=== PATIENT | female | born 1980 | race Caucasian/White ===

== ENCOUNTER → 2016-09-08 | Outpatient (CLI) | payer OTHER ==
--- NOTE | 2016-09-08 16:58 | CT ---
EXAMINATION TYPE: CT ChestAbdPelvis w con DATE OF EXAM: 09/08/2016 4:20 PM COMPARISON: 08/27/[address] 05/28/2016 HISTORY: 36-year-old female, follow-up right breast CA. Completed treatment in 2009. TECHNIQUE: Contiguous axial scanning of the chest, abdomen, and pelvis performed with IV Contrast, pa tient injected with 100 mL of Omnipaque 300. Delayed images through the kidneys were obtained. Whiteside l/sagittal reconstructions performed. CT DLP: 1386.8 mGycm Automated exposure control for dose reduction was used. FINDINGS: CHEST: Stable lateral right breast nodularity dating back to 08/27/2015. Surgical clips deep within the right breast redemonstrated with vascular calcifications on the left. Heart is normal size without pericardial effusion. Aorta is normal caliber with conventional arch vessel branching anatomy. No thoracic lymphadenopathy. Evaluation of the lungs shows no consolidation or pleural effusion. Subtle 4 mm groundglass nodule an terior right middle lobe axial image 34 is unchanged from 08/27/2015 suggesting a benign etiology. Interval resolution of patient's previous large right pleural effusion. ABDOMEN: 2 hypodense lesions visualized within the left hepatic lobe measuring 1.6 cm and in the mid liver lor suring 1.1 cm versus approximately 3.2 and 1.6 cm on the PET CT of 05/28/2016, both smaller in the int erval. No hypervascular enhancing lesions within the liver. Portal venous system is patent. No biliary ductal dilatation. Adrenal glands, kidneys, spleen, and pancreas appear within normal limits. Some surgical clips along the anterior abdominal wall likely from prior abdominoplasty. No mesenteric or retroperitoneal lymphadenopathy. No dilated small bowel, free fluid, or free air. Normal appendix. Oral contrast has progressed to the lower descending colon. No pericolonic inflammatory change. Pelvis: 2.1 cm exophytic nodule from the right ovary does not appear to be significantly changed from 05/28/20 16 but is smaller as compared to 08/27/2015, refer to coronal image 35. No abnormal fluid collection in the pelvis or pelvic lymphadenopathy. Bones: Previous diffuse osseous metastatic disease shows increasing and larger areas of sclerosis possibly d ue to interval healing change, however, some of these sclerotic lesions appear to be new, for example , measuring 1.3 cm within L3 vertebral body, a couple Small foci within the L2 vertebral body an measuring 1 cm within the T10 vertebral body. These partic ular areas do not seem to show any FDG uptake on the 05/28/2016 PET scan. IMPRESSION: 1. Stable nodularity lateral right breast. 2. There are 2 hypodense hepatic lesions measuring 1.6 and 1.1 cm versus 3.2 and 1.6 cm on 05/28/2016 PET/CT. Findings suggest partial interval treatment response. Additional small hepatic lesions seen o n PET scan are not clearly appreciated. 3. Diffuse osseous metastatic disease again demonstrated. While the increasing sclerosis of these les ions could reflect healing change, the interval enlargement and appearance of new lesions at sites wh ere no previous metabolic uptake was seen makes progression of osseous metastatic disease difficult t o exclude.
== END | disposition home or self-care (01) ==
LOC: RADCTMAIN 14:28
PROVIDERS: ATTEND Internal Medicine Hematology & Oncology
DX: Z03.89 Encounter for observation for other suspected diseases and conditions ruled out (principal); N63 Unspecified lump in breast; C50.411 Malignant neoplasm of upper-outer quadrant of right female breast; C79.51 Secondary malignant neoplasm of bone
CPT/HCPCS: 71260; 74177; Q9967

== ENCOUNTER → 2016-11-28 | Outpatient (CLI) | payer OTHER, MEDICARE ==
[2016-11-28 13:55] LABS: Blood Urea Nitrogen 11 mg/dL (7-17); Non-African American GFR(MDRD) >60 (>60 ml/min/1.73 sqM)
--- NOTE | 2016-11-28 14:37 | CT ---
EXAMINATION TYPE: CT ChestAbdPelvis w con DATE OF EXAM: 11/28/2016 COMPARISON: Previous study dated 09/08/2016. HISTORY: Follow up breast cancer. No complaints at time of scan CT DLP: 2063 mGycm Automated exposure control for dose reduction was used. TECHNIQUE: Helical acquisition through the abdomen and pelvis was obtained without oral contrast but following the intravenous administration of 100 mL of Omnipaque 300. The data was formatted in the a xial, coronal and sagittal projections. FINDINGS: The lungs are clear. There are postsurgical changes present in both breasts. There is no significant axillary, internal mammary, mediastinal or hilar adenopathy. There is no pleu ral or pericardial fluid. The heart is not enlarged. Subtle lesion in the medial segment of the left lobe of the liver previously measured 16 mm. Today it measures 9.8 mm. Second liver lesion in the mid liver is decreasing is stable measuring 10.9 mm. Pre viously it was measured at 10.5 mm. No new liver lesions are seen. The gallbladder and spleen are nor mal. There is a stable 10.3 mm lymph node along the lesser curvature the stomach. This was present previou sly. The pancreas is unremarkable. Both adrenal glands are unremarkable. Both kidneys demonstrate function and appear morphologically normal. There is no significant retroperitoneal, inguinal or iliac adenopathy. The uterus is unremarkable. There is a 2.4 cm cyst in the right ovary. This was previously measured a t 2.1 cm There is follicular change in the left ovary largest cystic lesion measures 1.4 cm. The bladder is unremarkable. There is mild mucosal thickening involving the distal sigmoid and rectum. This may partially due to l ack of distention. There is no significant diverticular disease and there is no radiographic evidence of diverticulitis. The appendix is normal. Small bowel loops appear normal. No free fluid and no free air is seen. The large number of metallic densities projecting within the rectus complex bilaterally. These are un changed from previous. There are innumerable blastic metastases throughout the skeletal system. These appear stable. One les ion measured in the L3 vertebral body previously measured 14.7 mm previously and today measures 14.8 mm. A second lesion measured previously in the T10 vertebral body at 10 mm measures 11 mm today. No d efinite new lesions are seen. IMPRESSION: 1. STABLE, DIFFUSE BLASTIC METASTASES. 2. IMPROVED SIZE OF THE PATIENT'S KNOWN HEPATIC LESIONS. 3. MILD MUCOSAL THICKENING INVOLVING THE DISTAL SIGMOID AND RECTUM. PLEASE CORRELATE CLINICALLY TO EX CLUDE COLITIS. 4. POSTSURGICAL CHANGES IN THE BREAST ANTERIOR ABDOMEN. 5. STABLE CYSTIC CHANGE IN THE RIGHT OVARY.
== END | disposition home or self-care (01) ==
LOC: RADCTMAIN 12:15
PROVIDERS: ATTEND Internal Medicine Hematology & Oncology
DX: C50.411 Malignant neoplasm of upper-outer quadrant of right female breast (principal); L98.9 Disorder of the skin and subcutaneous tissue, unspecified; N83.201 Unspecified ovarian cyst, right side; Z98.890 Other specified postprocedural states
CPT/HCPCS: 82565; 84520; 71260; 74177; 36415; Q9967

== ENCOUNTER 2016-11-30 18:15 | Emergency (ER) | payer OTHER, MEDICARE ==
[2016-11-30] MEDS ORDERED: HYDROcodone/APAP 7.5-325MG 1 EACH TAB PO ONE (19:50)
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
--- NOTE | 2016-11-30 21:09 | XR ---
EXAMINATION TYPE: XR sacrum coccyx DATE OF EXAM: 11/30/2016 COMPARISON: NONE HISTORY: Pain TECHNIQUE: 3 views FINDINGS: Segments have normal alignment. Sacroiliac joints appear intact. I see no fracture. There a re multiple sclerotic foci involving the left ischium left ilium right side of the sacrum, inferior l eft side of the sacrum. These appear new compared to old CT scan of 08/27/2015 and are suggestive of os teoblastic metastatic disease. IMPRESSION: Osteoblastic changes. No fracture seen.
--- NOTE | 2016-11-30 21:11 | XR ---
EXAMINATION TYPE: XR chest 2V DATE OF EXAM: 11/30/2016 COMPARISON: 06/01/2016 HISTORY: Pain TECHNIQUE: Frontal and lateral views of the chest are obtained. FINDINGS: Heart and mediastinum are normal. Lungs are clear. Diaphragm is normal. Bony thorax is int act. IMPRESSION: Normal chest. There is clearing of pleural fluid or reaction at the right lung base comp ared to old exam.
[2016-11-30 21:50] VITALS: BP 140/66; PULSE 104; RESP 18; TEMP 98.6
== END 2016-11-30 21:51 | disposition home or self-care (01) ==
LOC: EC 18:15
DX: S20.212A Contusion of left front wall of thorax, initial encounter (principal); S30.0XXA Contusion of lower back and pelvis, initial encounter; S30.1XXA Contusion of abdominal wall, initial encounter; Z87.891 Personal history of nicotine dependence; Z79.899 Other long term (current) drug therapy; Z85.3 Personal history of malignant neoplasm of breast; Z85.89 Personal history of malignant neoplasm of other organs and systems; V46.5XXA Car driver injured in collision with other nonmotor vehicle in traffic accident, initial encounter; Y92.410 Unspecified street and highway as the place of occurrence of the external cause
CPT/HCPCS: 71020; 72220; 76705; 99284

== ENCOUNTER 2017-03-14 08:47 | Emergency (ER) | payer OTHER, MEDICARE ==
[2017-03-14] MEDS ORDERED: KETOROLAC 30 MG/ML 1 ML VIAL IVP STA (09:05)
[2017-03-14] MEDS ORDERED: SODIUM CHLORIDE 0.9% 1,000 ML IV STA (09:05)
--- NOTE | 2017-03-14 09:17 | ED ---
General Adult HPI - General Chief complaint: Abdominal Pain Stated complaint: severe pain on right side ribs Time Seen by Provider: 03/14/17 08:54 Source: patient, RN notes reviewed Mode of arrival: ambulatory Limitations: no limitations - History of Present Illness Initial comments: 36-year-old female presents to the emergency Department chief complaint of right side pain. Patient states she has this pain just to the right thigh. Patient has a nausea vomiting any tenderness to touch. Patient states if she sits still she has no pain but if she breathes or moves at all she has increased pain. Patient does admit to history of breast cancer that has spread this is currently under treatment for this. Patient denies any shortness of breath but states when she takes a deep breath it does cause her some discomfort. Patient just grabs the right side. There is no tenderness to touch. Patient denies any history of this in the past or any other symptoms. Patient denies any recent fever, chills, shortness of breath, back pain, abdominal pain, nausea vomiting, numbness or tingling, dysuria or hematuria, constipation or diarrhea, headaches or visual changes, or any other current symptoms. - Related Data Home Medications Medication Instructions Recorded Confirmed Palbociclib [Ibrance] 125 mg PO DAILY 11/30/16 03/14/17 Venlafaxine HCl [Effexor XR] 75 mg PO DAILY 11/30/16 03/14/17 ALPRAZolam [ALPRAZolam] 1 mg PO TID PRN 03/14/17 03/14/17 Previous Rx's Medication Instructions Recorded Hydrocodone/Acetaminophen [[place] 1 each PO Q6HR PRN #20 tab 03/14/17 5-325] Orphenadrine [Norflex] 100 mg PO Q12H #10 tablet.er 03/14/17 Allergies Allergy/AdvReac Type Severity Reaction Status Date / Time No Known Allergies Allergy Verified 03/14/17 09:50 Review of Systems ROS Statement: Those systems with pertinent positive or pertinent negative responses have been documented in the HPI. ROS Other: All systems not noted in ROS Statement are negative. Past Medical History Past Medical History: Cancer Additional Past Medical History / Comment(s): plueral effusion, R breast cancer , liver and lower spine cancer History of Any Multi-Drug Resistant Organisms: None Reported Additional Past Surgical History / Comment(s): double mastecomy, R ankle surg, carpel tunnel adrián, hx of mediport Past Anesthesia/Blood Transfusion Reactions: No Reported Reaction Past Psychological History: Anxiety Smoking Status: Former smoker Past Alcohol Use History: Occasional Past Drug Use History: None Reported General Exam - General Exam Comments Initial Comments: General: The patient is awake and alert, in no distress, and does not appear acutely ill. Eye: Pupils are equal, round and reactive to light, extra-ocular movements are intact; there is normal conjunctiva bilaterally. No signs of icterus. Ears, nose, mouth and throat: There are moist mucous membranes and no oral lesions. Neck: The neck is supple, there is no tenderness. Cardiovascular: There is a regular rate and rhythm. No murmur, rub or gallop is appreciated. Respiratory: Lungs are clear to auscultation, respirations are non-labored, breath sounds are equal. No wheezes, stridor, rales, or rhonchi. Gastrointestinal: Soft, non-distended, non-tender abdomen without masses or organomegaly noted. There is no rebound or guarding present. No CVA tenderness. Bowel sounds are unremarkable. Back: There is no tenderness to palpation in the midline. There is no obvious deformity. No rashes noted. Musculoskeletal: Normal ROM, no tenderness, There is no pedal edema. There is no calf tenderness or swelling. Sensation intact. Pulses equal bilaterally 2+. Neurological: CN II-XII intact, There are no obvious motor or sensory deficits. Coordination appears grossly intact. Speech is normal. Skin: Skin is warm and dry and no rashes or lesions are noted. Psychiatric: Cooperative, appropriate mood & affect, normal judgment. Limitations: no limitations Course Vital Signs 03/14/17 03/14/17 03/14/17 08:49 10:03 11:25 Temperature 98.3 F 98.5 F Pulse Rate 81 72 74 Respiratory 17 18 18 Rate Blood Pressure 137/81 124/74 130/81 O2 Sat by Pulse 100 98 98 Oximetry Medical Decision Making - Medical Decision Making 28-year-old female presents for right side pain. This time patient's symptoms do appear to be musculoskeletal. They are worse to movement better to rest. Toradol to help the patient with her pain. We did review her CAT scan to do show bone metastases we discussed could be related to that he could be a muscle strain. We did discuss close follow-up with her oncologist. We did discuss return parameters all the patient's questions. He stated he understood and they are plan. All questions have been answered. He'll be discharged. - Lab Data Result diagrams: 03/14/17 09:23 03/14/17 09:23 Lab Results 03/14/17 03/14/17 03/14/17 Range/Units 09:23 09:23 09:23 WBC 2.8 L (3.8-10.6) k/uL RBC 3.32 L (3.80-5.40) m/uL Hgb 12.3 (11.4-16.0) gm/dL Hct 35.5 (34.0-46.0) % MCV 107.2 H (80.0-100.0) fL MCH 37.1 H (25.0-35.0) pg MCHC 34.6 (31.0-37.0) g/dL RDW 15.2 (11.5-15.5) % Plt Count 230 (150-450) k/uL Neutrophils % 70 % Lymphocytes % 23 % Monocytes % 3 % Eosinophils % 1 % Basophils % 1 % Neutrophils # 2.0 (1.3-7.7) k/uL Lymphocytes # 0.6 L (1.0-4.8) k/uL Monocytes # 0.1 (0-1.0) k/uL Eosinophils # 0.0 (0-0.7) k/uL Basophils # 0.0 (0-0.2) k/uL Macrocytosis Moderate PT 10.2 (9.0-12.0) sec INR 1.0 (<1.2) APTT 22.0 (22.0-30.0) sec D-Dimer 0.92 H (<0.60) mg/L FEU Sodium 141 (137-145) mmol/L Potassium 3.9 (3.5-5.1) mmol/L Chloride 107 (98-107) mmol/L Carbon Dioxide 26 (22-30) mmol/L Anion Gap 8 mmol/L BUN 11 (7-17) mg/dL Creatinine 0.73 (0.52-1.04) mg/dL Est GFR (MDRD) Af Amer >60 (>60 ml/min/1.73 sqM) Est GFR (MDRD) Non-Af >60 (>60 ml/min/1.73 sqM) Glucose 103 H (74-99) mg/dL Calcium 8.8 (8.4-10.2) mg/dL Total Bilirubin 0.7 (0.2-1.3) mg/dL AST 25 (14-36) U/L ALT 46 (9-52) U/L Alkaline Phosphatase 53 (38-126) U/L Total Protein 7.3 (6.3-8.2) g/dL Albumin 4.2 (3.5-5.0) g/dL Urine Color Urine Appearance (Clear) Urine pH (5.0-8.0) Ur Specific Beverly (1.001-1.035) Urine Protein (Negative) Urine Glucose (UA) (Negative) Urine Ketones (Negative) Urine Blood (Negative) Urine Nitrite (Negative) Urine Bilirubin (Negative) Urine Urobilinogen (<2.0) mg/dL Ur Leukocyte Esterase (Negative) 03/14/17 Range/Units 09:23 WBC (3.8-10.6) k/uL RBC (3.80-5.40) m/uL Hgb (11.4-16.0) gm/dL Hct (34.0-46.0) % MCV (80.0-100.0) fL MCH (25.0-35.0) pg MCHC (31.0-37.0) g/dL RDW (11.5-15.5) % Plt Count (150-450) k/uL Neutrophils % % Lymphocytes % % Monocytes % % Eosinophils % % Basophils % % Neutrophils # (1.3-7.7) k/uL Lymphocytes # (1.0-4.8) k/uL Monocytes # (0-1.0) k/uL Eosinophils # (0-0.7) k/uL Basophils # (0-0.2) k/uL Macrocytosis PT (9.0-12.0) sec INR (<1.2) APTT (22.0-30.0) sec D-Dimer (<0.60) mg/L FEU Sodium (137-145) mmol/L Potassium (3.5-5.1) mmol/L Chloride (98-107) mmol/L Carbon Dioxide (22-30) mmol/L Anion Gap mmol/L BUN (7-17) mg/dL Creatinine (0.52-1.04) mg/dL Est GFR (MDRD) Af Amer (>60 ml/min/1.73 sqM) Est GFR (MDRD) Non-Af (>60 ml/min/1.73 sqM) Glucose (74-99) mg/dL Calcium (8.4-10.2) mg/dL Total Bilirubin (0.2-1.3) mg/dL AST (14-36) U/L ALT (9-52) U/L Alkaline Phosphatase (38-126) U/L Total Protein (6.3-8.2) g/dL Albumin (3.5-5.0) g/dL Urine Color Yellow Urine Appearance Clear (Clear) Urine pH 6.0 (5.0-8.0) Ur Specific Beverly 1.017 (1.001-1.035) Urine Protein Negative (Negative) Urine Glucose (UA) Negative (Negative) Urine Ketones Negative (Negative) Urine Blood Negative (Negative) Urine Nitrite Negative (Negative) Urine Bilirubin Negative (Negative) Urine Urobilinogen <2.0 (<2.0) mg/dL Ur Leukocyte Esterase Negative (Negative) - Radiology Data Radiology results: report reviewed, image reviewed Disposition Clinical Impression: Thoracic myofascial strain Disposition: HOME SELF-CARE Condition: Stable Instructions: Muscle Spasm (ED), Muscle Strain (ED) Additional Instructions: Please use medication as discussed. Please follow up with family doctor if symptoms have not improved over the next two days. Please return to the emergency room if your symptoms increase or worsen or for any other concerns. Prescriptions: Hydrocodone/Acetaminophen [[place] 5-325] 1 each PO Q6HR PRN #20 tab PRN Reason: Pain Orphenadrine [Norflex] 100 mg PO Q12H #10 tablet.er Referrals: Jeronimo Mccormick DO [Primary Care Provider] - 1-2 days Time of Disposition: 12:04
--- NOTE | 2017-03-14 09:40 | XR ---
EXAMINATION TYPE: XR chest 2V DATE OF EXAM: 03/14/2017 COMPARISON: 11/30/2016 TECHNIQUE: PA and lateral views submitted. HISTORY: Right upper chest pain FINDINGS: The lungs are clear and there is no pneumothorax, pleural effusion, or focal pneumonia. Surgical cl ips overlying the right chest. IMPRESSION: 1. No acute process.
[2017-03-14 09:43] LABS: Basophils % (A) 1 %; CH 38.2; CHCM 35.8; Eosinophils % (A) 1 %; HCT 35.5 % (34.0-46.0); HDW 3.26; HGB 12.3 gm/dL (11.4-16.0); Luc # (Auto) 0.07; Luc % (Auto) 2; Lymphocytes # (A) 0.6 k/uL (1.0-4.8); Lymphocytes % (A) 23 %; MCH 37.1 pg (25.0-35.0); MCHC 34.6 g/dL (31.0-37.0); MCV 107.2 fL (80.0-100.0); Macrocytosis Moderate; Mean Platelet Volume 7.5; Monocytes # (A) 0.1 k/uL (0-1.0); Monocytes % (A) 3 %; Neutrophils % (A) 70 %; RBC 3.32 m/uL (3.80-5.40); RDW 15.2 % (11.5-15.5); WBC 2.8 k/uL (3.8-10.6); WBC (Perox) 3.05
--- NOTE | 2017-03-14 09:43 | XR ---
EXAM TYPE: LUMBAR SPINE X RAY SERIES COMPARISON: NONE HISTORY: Pain TECHNIQUE: 4 views are submitted. FINDINGS: Alignment is anatomic. Sclerosis of the pedicle of T12 and L1 on the right. Sclerosis involving the r ight transverse process of L1. Sclerotic lesions involving the sacrum and iliac bones noted. Vague ar eas of increased density seen throughout the lumbar vertebral column. No compression deformities. The transverse processes are intact. There is no spondylolysis or spondylolisthesis. IMPRESSION: 1. Findings suggest bony metastases.
[2017-03-14 09:46] LABS: Appearance,Urine Clear (Clear); Bilirubin,Urine Negative (Negative); Glucose,Urine (UA) Negative (Negative); Ketones,Urine Negative (Negative); Leukocyte Esterase,Urine Negative (Negative); Nitrite,Urine Negative (Negative); Protein,Urine Negative (Negative); Specific Gravity,Urine 1.017 (1.001-1.035); UA Billing (MACRO vs. MICRO) CHEM; Urobilinogen,Urine <2.0 mg/dL (<2.0)
[2017-03-14 09:52] LABS: ALT 46 U/L (9-52); AST 25 U/L (14-36); Alkaline Phosphatase 53 U/L (38-126); Anion Gap 8 mmol/L; Blood Urea Nitrogen 11 mg/dL (7-17); Calcium 8.8 mg/dL (8.4-10.2); Carbon Dioxide 26 mmol/L (22-30); Chloride 107 mmol/L (98-107); Glucose 103 mg/dL (74-99); Non-African American GFR(MDRD) >60 (>60 ml/min/1.73 sqM); Potassium 3.9 mmol/L (3.5-5.1); Sodium 141 mmol/L (137-145); Total Bilirubin 0.7 mg/dL (0.2-1.3); Total Protein 7.3 g/dL (6.3-8.2)
[2017-03-14 09:55] LABS: Prothrombin Time 10.2 sec (9.0-12.0)
[2017-03-14] MEDS ORDERED: RX INFO: IV CONTRAST WAS GIVEN 1 EACH MISC MISCELLANE PRN (09:58)
[2017-03-14 10:04] VITALS: RESP 18
[2017-03-14 11:25] VITALS: BP 130/81; PULSE 74; TEMP 98.5
--- NOTE | 2017-03-14 11:51 | CT ---
CT CHEST FOR PULMONARY EMBOLISM. EXAMINATION TYPE: CT angio chest DATE OF EXAM: 03/14/2017 INDICATION: Rt side chest pain CT DLP: 435.1 mGycm, Automated exposure control for dose reduction was used. CONTRAST: Patient injected with 85 mL of Omnipaque 350. COMPARISON: 11/28/2016 TECHNIQUE: CT of the chest is performed on a spiral scan at 2 mm thick sections. Study is performed with intravenous contrast timed for evaluation for pulmonary embolism. This will limit additional po rtions of the evaluation. 3-D MIP images reconstructed by the technologist are reviewed on the compu ter in the coronal and sagittal planes. FINDINGS: No persistent filling defects are evident to suggest an acute pulmonary embolism. No mediastinal or hilar adenopathy enlarged by CT criteria is evident. The ascending aorta diameter at the level of the main pulmonary artery is 2.8 cm. The main pulmonary artery diameter at the bifur cation is 1.9 cm. Some right apical scarring is likely present. No other suspicious infiltrates or masses are evident. Limited CT sections through the upper abdomen are unremarkable. Multiple sclerotic metastases are throughout the osseous structures. IMPRESSIONS: 1. No acute pulmonary embolism. 2. Minimal right apical scarring. 3. Diffuse osseous metastasis.
[2017-03-14] MEDS ORDERED: HYDROcodone/APAP 5-325MG 1 EACH TAB PO STA (12:14)
== END 2017-03-14 12:15 | disposition home or self-care (01) ==
LOC: EC 08:47
DX: S29.012A Strain of muscle and tendon of back wall of thorax, initial encounter (principal); F41.9 Anxiety disorder, unspecified; Z85.3 Personal history of malignant neoplasm of breast; Z85.05 Personal history of malignant neoplasm of liver; Z85.89 Personal history of malignant neoplasm of other organs and systems; Z87.891 Personal history of nicotine dependence; Z79.899 Other long term (current) drug therapy
CPT/HCPCS: 99284; 96374; 96361 ×2; 36415; 85379; 80053; 85025; 85610; 85730; 81003; 71020; 72100; 71275; Q9967; J1885

== ENCOUNTER → 2017-03-30 | Outpatient (CLI) | payer OTHER, MEDICARE ==
[2017-03-30 13:04] LABS: Blood Urea Nitrogen 14 mg/dL (7-17); Non-African American GFR(MDRD) >60 (>60 ml/min/1.73 sqM)
--- NOTE | 2017-03-30 14:33 | CT ---
EXAMINATION TYPE: CT abdomen pelvis w con DATE OF EXAM: 03/30/2017 HISTORY: Bilateral Breast Ca., Bilateral Mastectomy Lung Ca and Liver Ca, observation for suspected M ets CT DLP: 1517.30mGycm Automated Exposure Control for Dose Reduction was Utilized. CONTRAST: CT scan of the abdomen and pelvis is performed with IV Contrast, patient injected with 100ml mL of Om nipaque 300. COMPARISON: 11-28-16 FINDINGS: LUNG BASES: Bilateral mastectomy with TRAM flap reconstruction is appreciated. No discrete pulmonary nodules are appreciated or pulmonary masses. No internal mammary adenopathy is seen within the inferi or visual is portion of the internal mammary lymph node chains. LIVER/GB: The previously seen 1.0 cm left hepatic lobe lesion has decreased in size now measuring 0.8 cm. This is seen on series 3 image 17. The previously seen lesion near the middle hepatic vein as pr esent on series 3 image 20 and difficult to accurately measure as it has become decreasingly conspicu ous now measuring approximately 0.8 cm and previously measuring 1.1 cm. No new hepatic lesions are ap preciated. PANCREAS: No significant abnormality is seen. SPLEEN: No significant abnormality is seen. ADRENALS: No significant abnormality is seen. KIDNEYS: No significant abnormality is seen. BOWEL: No significant abnormality is seen. UTERUS/ADNEXA: Bilateral ovarian follicular changes are stable. LYMPH NODES: There is decrease in size of the previously seen 10.3 mm lymph node in the region of the gastrohepatic ligament now measuring 7.8 mm on series 3 image 23. OSSEOUS STRUCTURES: Innumerable blastic osseous metastasis throughout the axial and visualized append icular skeleton are similar in appearance. The index lesion previously measured on prior exams at L3 currently measures 14.8 mm and previously measured 14.7 mm. No compression deformities are seen. OTHER: Postsurgical changes are seen of the rectus abdominous musculature. IMPRESSION: 1. Decrease in size of the now subcentimeter 2 hepatic lesions with the smaller difficult to accurate ly measure as it is much less conspicuous than on the prior exam. 2. Stability of the diffuse osseous blastic metastatic foci. 3. Unchanged bilateral follicular changes of the ovaries. 4. No evidence of adenopathy within the abdomen or pelvis. No new visceral lesions.
== END | disposition home or self-care (01) ==
LOC: RADCTMAIN 12:04
PROVIDERS: ATTEND Internal Medicine Hematology & Oncology
DX: K76.89 Other specified diseases of liver (principal); R93.8 Abnormal findings on diagnostic imaging of other specified body structures; C50.411 Malignant neoplasm of upper-outer quadrant of right female breast
CPT/HCPCS: 82565; 84520; 74177; Q9967

== ENCOUNTER → 2017-09-14 | Outpatient (CLI) | payer MEDICARE ==
[2017-09-14 11:20] LABS: Blood Urea Nitrogen 17 mg/dL (7-17)
--- NOTE | 2017-09-14 15:06 | CT ---
EXAMINATION TYPE: CT ChestAbdPelvis w con DATE OF EXAM: 09/14/2017 COMPARISON: 03/14/2017 and 03/30/2017 HISTORY: Follow up on right breast cancer, obs. for metastasis CT DLP: 2607 mGycm. Automated Exposure Control for Dose Reduction was Utilized. CONTRAST: CT scan of the thorax, abdomen and pelvis is performed with IV Contrast, patient injected with 100 mL of Isovue 300. FINDINGS: LUNGS: The lungs are grossly clear, there is no concerning parenchymal mass or nodule identified. T here is no pleural effusion or pneumothorax seen. The tracheobronchial tree is patent. MEDIASTINUM: There are no greater than 1 cm hilar or mediastinal lymph nodes. No pericardial effusi on is seen. Scant residual thymic tissue seen within the superior anterior mediastinum. OTHER: Surgical clips are seen in both breasts with findings suggestive of TRAM reconstruction and natarajan rgical clips are also seen in the lower anterior abdominal wall.. No axillary adenopathy or internal mammary adenopathy. LIVER/GB: There is near complete resolution of the previously seen left hepatic lobe metastasis now p oorly defined and measuring approximately 4 mm on series 5 image 45 and previously measuring 8 mm on the exam of 03/30/2017. The additionally seen 8 mm lesion is no longer visualized. Focal hypoattenuati on is seen along the fissure for the falciform ligament, unchanged from the prior most commonly relat ed to focal fatty infiltration. No new hepatic lesions are seen. No intrahepatic biliary ductal dilat ation. Gallbladder is unremarkable. PANCREAS: No significant abnormality is seen. No ductal dilatation. SPLEEN: No splenomegaly. ADRENALS: No nodularity or thickening. KIDNEYS: Kidneys enhance symmetrically. No hydronephrosis. BOWEL: Appendix contains contrast and is within normal limits of size. No evidence of bowel obstructi on or dilatation. GENITAL ORGANS: No gross abnormality seen. LYMPH NODES: Few nonenlarged lymph nodes are again seen in the region of the gastrohepatic ligament, previously measuring up to 7.8 mm and now measuring up to 6 mm. No greater than 1cm abdominal or pelv ic lymph nodes are appreciated. OSSEOUS STRUCTURES: There is redemonstration of diffuse osseous blastic metastasis, similar to the pr ior exam of 03/30/2017 with involvement of the thoracic spine, lumbar spine, sternum, and left ribs. F or comparison in size the previously measured 14.8 mm lesion at L3 again measures 14.8 mm. IMPRESSION: 1. Near complete resolution of the previously seen 8 mm hepatic lesions with one nonvisualized and th e other very subtly visualized measuring 4 mm. 2. Decrease in size of the overall nonenlarged gastrohepatic ligament lymph nodes. 3. Stability of the diffuse osseous blastic metastasis. 4. No new visceral lesions and no new adenopathy.
== END | disposition home or self-care (01) ==
LOC: RADCTMAIN 10:50
PROVIDERS: ATTEND Internal Medicine Hematology & Oncology
DX: C79.51 Secondary malignant neoplasm of bone (principal); C50.411 Malignant neoplasm of upper-outer quadrant of right female breast; C78.7 Secondary malignant neoplasm of liver and intrahepatic bile duct
CPT/HCPCS: 82565; 84520; 71260; 74177; 36415; Q9967

== ENCOUNTER → 2018-03-05 | Outpatient (CLI) | payer MEDICARE, OTHER ==
[2018-03-05 14:18] VITALS: BP 129/74; PULSE 83; RESP 14; TEMP 98.1; BMI 36.8
--- NOTE | 2018-03-05 15:22 | P.HPBAR ---
Bariatric H&P - History & Physicial H&P Date: 03/05/18 History & Physicial: Visit/CC: sleeve consult Patient initial contact: Initial weight: 102.104 kg Initial weight in pounds: 225.10 Height: 5 ft 5.5 in Initial BMI: 36.8 Last weight: Current weight: 102.104 kg Current weight in pounds: 225.10 Current BMI: 36.8 [place] body weight (based on NIH guidelines): 57.833 kg Excess body weight loss: 0.0% The patient is a 37 year-old F who presents for Bariatric Assessment. Patient presents for new patient consultation Re: Sleeve gastrectomy. Patient has had lifetime process morbid obesity. Her BMI is 37. The patient is requesting to sleeve gastrectomy. She's been an information summer. Potter the risks and benefits of procedure including possible injury the stomach, liver spleen. She also a risk of gastric staple line disruption, bleeding or scarring. Past Medical History Past Medical History: Cancer Additional Past Medical History / Comment(s): plueral effusion, R breast cancer dx at age 28, liver and lower spine cancer History of Any Multi-Drug Resistant Organisms: None Reported Additional Past Surgical History / Comment(s): double mastecomy, R ankle surg, carpel tunnel adrián, hx of mediport Past Anesthesia/Blood Transfusion Reactions: No Reported Reaction Past Psychological History: Anxiety Smoking Status: Former smoker Past Alcohol Use History: Occasional Past Drug Use History: None Reported Additional Drug Use History / Comment(s): Pt states she "smoked for a couple of years in late teenage years" Surgical - Exam Vital Signs Temp Pulse Resp BP 98.1 F 83 14 129/74 03/05/18 13:59 03/05/18 13:59 03/05/18 13:59 03/05/18 13:59 - General well developed, no distress - Eyes PERRL - ENT normal pinna - Neck no masses - Respiratory normal expansion - Abdomen Abdomen: soft, non tender Bariatric Assessment & Plan Plan: Morbid obesity BMI 37. The patient will undergo EGD. She'll follow-up in the clinic after her EGD is performed. Bariatric Checklist Checklist: Plan: Checklist: EGD: 1. Hiatal hernia: 2. H. Pylori: HgbA1c: Vitamin D: Smoking: Former smoker Primary care physician referral: Jeronimo Mccormick ([place]), Dr. Pablo Hickey ( oncologist) Psychiatry clearance: Cardiology clearance: Sleep study: Diet journal: VTE risk score: VTE risk level: Rehab needs at discharge:
== END | disposition home or self-care (01) ==
LOC: BARWHC3 13:21
PROVIDERS: ATTEND Surgery
DX: E66.01 Morbid (severe) obesity due to excess calories (principal); F41.9 Anxiety disorder, unspecified; Z87.891 Personal history of nicotine dependence; Z85.3 Personal history of malignant neoplasm of breast; Z85.05 Personal history of malignant neoplasm of liver; Z85.89 Personal history of malignant neoplasm of other organs and systems; Z90.13 Acquired absence of bilateral breasts and nipples; Z68.37 Body mass index [BMI] 37.0-37.9, adult
CPT/HCPCS: 99211

== ENCOUNTER 2018-03-19 08:24 | Day surgery (SDC) | payer MEDICARE, OTHER ==
[2018-03-15 11:27] VITALS: BMI 37.4
[~2018-03-19 08:24] MED LIST: LACTATED RINGERS 1,000 ML IV SCH; LIDOCAINE 1% 20 ML VIAL (10MG/ML) FOR IV START INTRADERMA PRN
[2018-03-19] MEDS ORDERED: LIDOCAINE 1% INJ 10MG/ML (20 ML MDV) ONE (09:12)
[2018-03-19] MEDS ORDERED: PROPOFOL 10 MG/ML 20 ML VIAL IV ONE (09:12)
[2018-03-19 09:13] VITALS: TEMP 98.2
--- NOTE | 2018-03-19 09:17 | P.GSHP ---
History of Present Illness H&P Date: 03/19/18 Chief Complaint: Morbid obesity, GERD This is a 37-year-old female who presents today for EGD. She's had issues with GERD. Patient's currently undergoing workup for sleeve yesterday. Patient morbidly obese with BMI 37 Past Medical History Past Medical History: Cancer Additional Past Medical History / Comment(s): plueral effusion, R breast cancer dx at age 28, liver and lower spine cancer History of Any Multi-Drug Resistant Organisms: None Reported Past Surgical History: Orthopedic Surgery Additional Past Surgical History / Comment(s): double mastecomy, R ankle surg, carpel tunnel adrián, hx of mediport Past Anesthesia/Blood Transfusion Reactions: No Reported Reaction Smoking Status: Former smoker - Past Family History Mother Family Medical History: No Reported History Medications and Allergies Home Medications Medication Instructions Recorded Confirmed Type Palbociclib [Ibrance] 125 mg PO DAILY 11/30/16 03/15/18 History Venlafaxine HCl [Effexor XR] 37.5 mg PO DAILY 11/30/16 03/15/18 History ALPRAZolam 1 mg PO TID PRN 03/14/17 03/15/18 History Hydrocodone/Acetaminophen [[place] 1 each PO Q6HR PRN #20 tab 03/14/17 03/19/18 Rx 5-325] Faslodex Injection 1 each IM Q30D 03/15/18 03/19/18 History Lupron Injection 1 each IM Q90D 03/15/18 03/19/18 History Xgeva Injection 1 each IM Q30D 03/15/18 03/19/18 History Allergies Allergy/AdvReac Type Severity Reaction Status Date / Time No Known Allergies Allergy Verified 03/19/18 08:53 Surgical - Exam Vital Signs Temp Pulse Resp BP Pulse Ox 98.2 F 75 16 126/82 98 03/19/18 09:05 03/19/18 09:05 03/19/18 09:05 03/19/18 09:05 03/19/18 09:05 - General well developed, no distress - Eyes PERRL - ENT normal pinna - Neck no masses - Respiratory normal expansion - Cardiovascular Rhythm: regular - Abdomen Abdomen: soft, non tender Assessment and Plan Assessment: GERD Morbid obesity We'll perform EGD.
--- NOTE | 2018-03-19 09:25 | P.OP ---
Date of Procedure: 03/19/18 Preoperative Diagnosis: GERD Morbid obesity Postoperative Diagnosis: Antral gastritis Small sliding hiatal hernia Mild esophagitis Procedure(s) Performed: EGD Anesthesia: MAC Surgeon: Fab Weiss Pathology: other (Antrum, esophagus) Condition: stable Disposition: PACU Description of Procedure: The patient's placed on the endoscopy table in the lateral position. She received IV sedation. The gastroscope placed oropharynx and passed into the esophagus and stomach. Scope was then placed through the pylorus. The first second portion of the duodenum appeared normal. Scope was then brought back the antrum and this was mildly inflamed. A biopsies performed. The scope was then retroflexed and remainder the stomach appeared normal. The GE junction was at 40 cm. The distal esophagus appeared mildly inflamed. A biopsies was performed. There was a small sliding hiatal hernia. The axilla esophagus appeared normal. Scope was withdrawn for patient.
[2018-03-19 09:57] VITALS: BP 133/76; PULSE 69; RESP 16
== END 2018-03-19 10:06 | disposition home or self-care (01) ==
LOC: ORWHC2ENDO 08:24
PROVIDERS: ATTEND Surgery
DX: K21.0 Gastro-esophageal reflux disease with esophagitis (principal); K29.50 Unspecified chronic gastritis without bleeding; K44.9 Diaphragmatic hernia without obstruction or gangrene; E66.01 Morbid (severe) obesity due to excess calories; Z68.37 Body mass index [BMI] 37.0-37.9, adult; I25.10 Atherosclerotic heart disease of native coronary artery without angina pectoris; Z85.3 Personal history of malignant neoplasm of breast; Z85.05 Personal history of malignant neoplasm of liver; Z85.89 Personal history of malignant neoplasm of other organs and systems; Z90.13 Acquired absence of bilateral breasts and nipples; Z87.891 Personal history of nicotine dependence; Z79.899 Other long term (current) drug therapy
CPT/HCPCS: 81025; 88305; 43239; J2001; J2704

== ENCOUNTER → 2018-04-02 | Outpatient (CLI) | payer MEDICARE, OTHER ==
[2018-04-02 13:14] VITALS: BMI 37.5
[2018-04-02 13:36] VITALS: BP 121/58; PULSE 78; RESP 16; TEMP 99
--- NOTE | 2018-04-03 12:33 | P.HPBAR ---
Bariatric H&P - History & Physicial H&P Date: 04/02/18 History & Physicial: Visit/CC: pre-surg visit Patient initial contact: Initial weight: 102.104 kg Initial weight in pounds: 225.10 Height: 5 ft 5.5 in Initial BMI: 36.8 Last weight: Current weight: 104.099 kg Current weight in pounds: 229.50 Current BMI: 37.5 [place] body weight (based on NIH guidelines): 57.833 kg Excess body weight loss: The patient is a 38 year-old F who presents for Bariatric Assessment. Patient presents today for presurgical assessment for sleeve yesterday. Patient has most of her paperwork ready for authorization. Patient has been morbidly obese for several years. Her BMI is 38. She has a good understanding of the sleeve gastrectomy. Past Medical History Past Medical History: Cancer Additional Past Medical History / Comment(s): plueral effusion, R breast cancer dx at age 28, liver and lower spine cancer History of Any Multi-Drug Resistant Organisms: None Reported Additional Past Surgical History / Comment(s): double mastecomy, R ankle surg, carpel tunnel adrián, hx of mediport Past Anesthesia/Blood Transfusion Reactions: No Reported Reaction Smoking Status: Former smoker Surgical - Exam Vital Signs Temp Pulse Resp BP 99 F 78 16 121/58 04/02/18 13:32 04/02/18 13:32 04/02/18 13:32 04/02/18 13:32 - General well developed, no distress - Eyes PERRL - ENT normal pinna - Neck no masses - Respiratory normal expansion - Cardiovascular Rhythm: regular - Abdomen Abdomen: soft, non tender Bariatric Assessment & Plan Plan: Morbid obesity BMI 38. Patient has a excellent understanding significant gastric. We went over the risks and benefits of the procedure. She is aware the risk of gastric staple line disruption, bleeding or scarring. The patient will be scheduled for sleeve gastrectomy this month. Bariatric Checklist Checklist: Plan: Checklist: EGD: 1. Hiatal hernia: 2. H. Pylori: HgbA1c: Vitamin D: Smoking: Former smoker Primary care physician referral: Jeronimo Mccormick ([place]), Dr. Pablo Hickey ( oncologist) Psychiatry clearance: Cardiology clearance: Sleep study: Diet journal: VTE risk score: VTE risk level: Rehab needs at discharge:
== END | disposition home or self-care (01) ==
LOC: BARWHC3 08:58
PROVIDERS: ATTEND Surgery
DX: E66.01 Morbid (severe) obesity due to excess calories (principal); Z68.38 Body mass index [BMI] 38.0-38.9, adult; Z87.891 Personal history of nicotine dependence; Z85.3 Personal history of malignant neoplasm of breast; Z90.13 Acquired absence of bilateral breasts and nipples; Z98.890 Other specified postprocedural states
CPT/HCPCS: 97804; G0463; 99211

== ENCOUNTER → 2018-04-05 | Outpatient (CLI) | payer MEDICARE, OTHER ==
[2018-04-05 13:27] LABS: Basophils % (A) 1 %; Eosinophils # (A) 0.1 k/uL (0-0.7); Eosinophils % (A) 3 %; HCT 33.7 % (34.0-46.0); HGB 11.7 gm/dL (11.4-16.0); Lymphocytes # (A) 0.7 k/uL (1.0-4.8); Lymphocytes % (A) 26 %; MCH 36.2 pg (25.0-35.0); MCHC 34.7 g/dL (31.0-37.0); MCV 104.3 fL (80.0-100.0); Macrocytosis Slight; Mean Platelet Volume 6.7; Monocytes # (A) 0.1 k/uL (0-1.0); Monocytes % (A) 3 %; Neutrophils # (A) 1.9 k/uL (1.3-7.7); Neutrophils % (A) 66 %; Platelet Count 220 k/uL (150-450); Poikilocytosis Slight; RBC 3.23 m/uL (3.80-5.40); RDW 15.1 % (11.5-15.5); WBC 2.8 k/uL (3.8-10.6)
[2018-04-05 13:35] LABS: ALT 36 U/L (9-52); AST 35 U/L (14-36); Albumin 4.1 g/dL (3.5-5.0); Alkaline Phosphatase 47 U/L (38-126); Anion Gap 6 mmol/L; Blood Urea Nitrogen 16 mg/dL (7-17); Calcium 9.2 mg/dL (8.4-10.2); Carbon Dioxide 27 mmol/L (22-30); Chloride 108 mmol/L (98-107); Glucose 97 mg/dL (74-99); Potassium 4.5 mmol/L (3.5-5.1); Sodium 141 mmol/L (137-145); Total Bilirubin 0.6 mg/dL (0.2-1.3); Total Protein 7.5 g/dL (6.3-8.2)
--- NOTE | 2018-04-05 14:55 | CT ---
EXAMINATION TYPE: CT ChestAbdPelvis w con DATE OF EXAM: 04/05/2018 COMPARISON: 09/14/2017 and 08/27/2015 HISTORY: Follow up breast Ca. CT DLP: 1324.5 mGycm. Automated Exposure Control for Dose Reduction was Utilized. CONTRAST: CT scan of the thorax, abdomen and pelvis is performed with IV Contrast, patient injected with 100 mL of Isovue 300. FINDINGS: LUNGS: There is a 3 mm right middle lobe pulmonary nodule not well seen on the prior examination, pos sibly related to slice selection given its small size. Retrospectively an ill-defined opacity seen in this region, which appears as atelectasis on the prior exam. Minimal dependent subsegmental bibasila r atelectasis is seen on today's examination. No additional pulmonary nodules are identified. When co mpared to prior exams dating back to 08/27/2015 this is stable and therefore favored to be benign. The lungs are grossly clear, there is no concerning parenchymal mass identified. There is no pleura l effusion or pneumothorax seen. The tracheobronchial tree is patent. MEDIASTINUM: Bilateral mastectomies with TRAM flap reconstruction are seen. No new mediastinal or axi llary adenopathy. No internal mammary adenopathy is seen. Chest wall appears unremarkable. There are no greater than 1 cm hilar or mediastinal lymph nodes. No pericardial effusion is seen. LIVER/GB: Hepatic parenchyma is diffusely hypoattenuated in comparison to that of the spleen, most co mmonly seen in hepatic steatosis. This finding limits evaluation for hepatic masses. The previously s een 4 mm hepatic metastasis is not identified on today's examination. There is increase sensitivity o n MRI if there is further concern. No new hepatic lesions are present. No intrahepatic biliary ductal dilatation. No intrahepatic biliary ductal dilatation. No cholelithiasis. PANCREAS: No significant abnormality is seen. SPLEEN: No significant abnormality is seen. No splenomegaly. ADRENALS: No significant abnormality is seen. KIDNEYS: Kidneys enhance and excrete symmetrically. No hydronephrosis or focal renal lesions are seen . BOWEL: No dilated large or small bowel. Appendix is partially air-filled and within normal limits. GENITAL ORGANS: No gross abnormality seen. LYMPH NODES: The previously seen prominent gastric hepatic lymph node is again diminished in size now measuring 3 mm on image 51 and previously measuring 6 mm in short axis. There are no greater than th an 1cm abdominal or pelvic lymph nodes are appreciated. OSSEOUS STRUCTURES: There is redemonstration of diffuse osteoblastic skeletal metastasis throughout t he visualized axial skeleton. This includes the left scapula, sternum, vertebral bodies, ribs, sacrum , iliac bones, and femurs. OTHER: No significant additional abnormality is seen. IMPRESSION: 1. Nonvisualization of the previously seen 4 mm hepatic metastasis. Hepatic steatosis is present, elias earing overall moderate degree. 2. Stability of the diffuse osteoblastic skeletal metastasis. 3. No no evidence of visceral metastasis within the chest, abdomen, or pelvis. 4. Stable subcentimeter right middle lobe pulmonary nodule dating back to 2016, favored to be benign.
== END ==
LOC: RADCTMAIN 11:43
PROVIDERS: ATTEND Internal Medicine Hematology & Oncology
DX: C50.411 Malignant neoplasm of upper-outer quadrant of right female breast (principal); C79.51 Secondary malignant neoplasm of bone; R91.1 Solitary pulmonary nodule; K76.0 Fatty (change of) liver, not elsewhere classified
CPT/HCPCS: 80053; 85025; 71260; 74177; 36415; Q9967

== ENCOUNTER 2018-04-20 07:41 | Inpatient (IN) | payer MEDICARE, OTHER ==
[~2018-04-20 07:41] MED LIST changes: +DEXAMETHASONE SOD PHOSPHATE 10 MG/ML 1 ML VIAL IV ONE; +ENOXAPARIN 40 MG/0.4 ML SYRINGE SQ ONE; -LACTATED RINGERS 1,000 ML IV SCH; +ONDANSETRON 4 MG/2 ML VIAL IVP ONE; +SCOPOLAMINE 1.5MG/72HR PATCH TRANSDERM ONE; +ceFAZolin IN SWFI 2 GM/20 ML SYRINGE IVP ONE
[2018-04-20] MEDS: LACTATED RINGERS 1,000 ML IV SCH (08:40)
[2018-04-20] MEDS ORDERED: MIDAZOLAM 2 MG/2 ML VIAL IVP ONE (09:01)
--- NOTE | 2018-04-20 09:05 | P.GSHP ---
History of Present Illness H&P Date: 04/20/18 Chief Complaint: Morbid obesity, BMI 37 This is a 38-year-old female presents today for laparoscopic sleeve yesterday. Patient has had lifetime process obesity. She understands the risks and benefits of procedure. She is aware the risk of gastric staple line disruption , bleeding perforation. She is also aware the risk of conversion open procedure and injury to the stomach liver spleen. Past Medical History Past Medical History: Cancer, GERD/Reflux Additional Past Medical History / Comment(s): plueral effusion, Rt breast cancer dx at age 28, liver and lower spine, lining of lung cancer, hiatal hernia , History of Any Multi-Drug Resistant Organisms: None Reported Past Surgical History: Breast Surgery Additional Past Surgical History / Comment(s): adrián mastecomy with FRANCISCO reconstructive surgery, R ankle ORIF, carpel tunnel adrián, mediport/later removed Past Anesthesia/Blood Transfusion Reactions: No Reported Reaction Smoking Status: Never smoker - Past Family History Mother Family Medical History: No Reported History Medications and Allergies Home Medications Medication Instructions Recorded Confirmed Type Palbociclib [Ibrance] 125 mg PO DAILY 11/30/16 04/20/18 History ALPRAZolam 1 mg PO TID PRN 03/14/17 04/20/18 History Hydrocodone/Acetaminophen [[place] 1 each PO Q6HR PRN #20 tab 03/14/17 04/20/18 Rx 5-325] Faslodex Injection 1 each IM Q30D 03/15/18 04/20/18 History Lupron Injection 1 each IM Q90D 03/15/18 04/20/18 History Xgeva Injection 1 each IM Q30D 03/15/18 04/20/18 History Esomeprazole Magnesium [NexIUM] 20 mg PO DAILY 04/10/18 04/20/18 History Allergies Allergy/AdvReac Type Severity Reaction Status Date / Time No Known Allergies Allergy Verified 04/10/18 13:15 Surgical - Exam Vital Signs Temp Pulse Resp BP Pulse Ox 99.3 F 78 18 120/62 94 L 04/20/18 08:16 04/20/18 08:16 04/20/18 08:16 04/20/18 08:16 04/20/18 08:16 - General well developed, no distress - Eyes PERRL - ENT normal pinna - Neck no masses - Respiratory normal expansion - Cardiovascular Rhythm: regular - Abdomen Abdomen: soft, non tender Assessment and Plan Assessment: Morbid obesity, BMI 37. We'll perform laparoscopic sleeve gastrectomy.
[2018-04-20] MEDS ORDERED: ROCURONIUM BROMIDE 10 MG/ML 10 ML VIAL IV ONE (09:42)
[2018-04-20] MEDS ORDERED: LIDOCAINE 1% INJ 10MG/ML (20 ML MDV) ONE (09:42)
[2018-04-20] MEDS ORDERED: GLYCOPYRROLATE 0.2 MG/ML 2 ML VIAL ONE (09:42)
[2018-04-20] MEDS ORDERED: SUCCINYLCHOLINE CHLORIDE 100 MG/5 ML SYR IV ONE (09:42)
[2018-04-20] MEDS ORDERED: NEOSTIGMINE 1 MG/ML 10 ML VIAL ONE (09:42)
[2018-04-20] MEDS ORDERED: PROPOFOL 10 MG/ML 20 ML VIAL IV ONE (09:42)
[2018-04-20] MEDS ORDERED: fentaNYL (PF) 50 MCG/ML 2 ML AMP ONE (09:42)
[2018-04-20] MEDS ORDERED: MIDAZOLAM 2 MG/2 ML VIAL ONE (09:42)
[2018-04-20] MEDS ORDERED: BUPIVACAINE-EPI 0.5%-1:200,000 10 ML VIAL SQ ONE (10:13)
[2018-04-20] MEDS ORDERED: SIMETHICONE 40 MG/0.6 ML DROPS 2,000 MG/30 ML BOTTLE PO PRN (11:27)
[2018-04-20] MEDS ORDERED: diphenhydrAMINE 50 MG/ML 1 ML VIAL IVP PRN (11:27)
[2018-04-20] MEDS ORDERED: HYDROcodone/APAP 15 ML SOLUTION PO PRN (11:27)
[2018-04-20] MEDS ORDERED: HYOSCYAMINE ORAL DROPS 1.875 MG/15 ML BOTTLE PO PRN (11:27)
[2018-04-20] MEDS ORDERED: NALOXONE 0.4 MG/ML 1 ML VIAL IV PRN (11:27)
--- NOTE | 2018-04-20 11:27 | P.OP ---
Date of Procedure: 04/20/18 Preoperative Diagnosis: Morbid obesity, BMI 37 Postoperative Diagnosis: Morbid obesity, BMI 37 Procedure(s) Performed: Laparoscopic sleeve gastric vein Laparoscopic repair of hiatal hernia Anesthesia: MATT Surgeon: Fab Weiss Estimated Blood Loss (ml): 10 Pathology: other (Stomach) Condition: stable Disposition: PACU Description of Procedure: The patient was placed on the operating room table in the supine position. She received general anesthesia and then was placed in dorsal lithotomy position. Her abdomen was prepped and draped in sterile fashion. The skin incision sites were anesthetized 1% local Xylocaine. And then the skin was incised with an 11 blade in the left lateral position. Using a blade less trocar under direct visualization the peritoneal cavity was entered. The abdomen was insufflated and then a 5 mm laparoscope was placed into the peritoneal cavity. A 5 mm trocar was placed in the right epigastric, and right lateral position. A 15 mm trocar was placed in the supra-umbilical position and another 5 mm trocar was placed in the left lateral position. The left lateral lobe of the liver was retracted. The stomach was visualized. The greater curvature of the stomach was then dissected using the Harmonic scissors. The dissection occurred approximately 5 cm from the pylorus to the level of the left vi. There was no hiatal hernia seen. At this point a 40-Armenian bougie dilator was placed the oropharynx and passed into the esophagus and into the stomach by the ACCOUNT ASSOCIATE. The sleeve gastrectomy was performed by using the powered echelon stapler with a seam guard buttress material. Sequential firings of the stapler were performed. Next the vi was then dissected. There was a small hiatal hernia. After the crura was dissected the hiatal hernia was repaired using 2-0 Ethibond suture. The gastric remnant was then brought out through the 15 mm trocar site. The dilator was withdrawn. And a orogastric tube was replaced into the stomach. The stomach was insufflated with 200 mL of methylene blue normal saline. There was no evidence of extravasation. The abdomen was irrigated there is no bleeding seen. The Piotr-Piper device was used to close the 15 mm trocar with 0 Vicryl. Skin was closed with interrupted 3-0 Monocryl sutures once the trochars withdrawn. Dermabond dressing was applied. Patient was sent to recovery in stable condition.
[2018-04-20] MEDS: HYDROmorphone 0.5 MG/0.5 ML SYRINGE IVP PRN ×4 (11:32→13:35)
[2018-04-20] MEDS: KETOROLAC 30 MG/ML 1 ML VIAL IVP SCH ×2 (11:43→18:24)
[2018-04-20] MEDS: ONDANSETRON 4 MG/2 ML VIAL IVP PRN ×2 (11:44→21:09)
[2018-04-20] MEDS ORDERED: LACTATED RINGERS 1,000 ML IV ONE (13:30)
[2018-04-20] MEDS: HYDROmorphone 1 MG/ML 1 ML SYRINGE IVP PRN ×2 (16:06→21:04)
[2018-04-20] MEDS: 0.9% NACL WITH KCL 20 MEQ/L 1,000 ML IV SCH ×2 (16:09→21:05)
[2018-04-20] MEDS: AMPICILLIN-SULBACTAM 3 GM in SODIUM CHLORIDE 0.9% 100 ML IVPB SCH ×2 (16:10→18:23)
--- NOTE | 2018-04-20 16:15 | P.CONS ---
History of Present Illness - Reason for Consult Consult date: 04/20/18 MEDICAL MANAGEMENT Requesting physician: Fab Weiss - Chief Complaint LAPAROSCOPIC GASTRIC SLEEVE, LAPAROSCOPIC REPAIR OF HIATAL HERNIA - History of Present Illness this is a pleasant 38-year-old female patient of Dr. Mccormick. She has underlying history of GERD, morbid obesity, right breast cancer at age 28, hiatal hernia, with prior history of bilateral mastectomy and reconstructive surgery, admitted service of Dr. Weiss laparoscopic gastric sleeve for BMI of 36.9. Patient has failed conservative treatments for weight loss,and was transferred to the medical floor under stable conditions. Patient denies any chest pain palpitation shortness of breath lightheadedness, pulse oximetry is are 100% using 3 L 92% on room air.incentive spirometry, is being provided, and as well as pain control and anti-emesis. Review of Systems Constitutional: Reports as per HPI, Reports weight gain, Denies anorexia, Denies chills, Denies chronic headaches, Denies chronic pain, Denies daytime sleepiness, Denies fatigue, Denies fever, Denies lethargy, Denies malaise, Denies night sweats, Denies poor appetite, Denies sweats, Denies weakness, Denies weight loss Ears, nose, mouth and throat: Reports as per HPI, Denies ant. neck pain, Denies bleeding gums, Denies dental pain, Denies dysphagia, Denies epistaxis, Denies headache, Denies hoarseness, Denies mouth pain, Denies nasal congestion, Denies nasal discharge, Denies neck fullness/pressure, Denies neck lump, Denies nose pain, Denies odynophagia, Denies post-nasal drip, Denies sinus pain, Denies sinus pressure, Denies swelling in mouth, Denies swelling in throat, Denies sore throat, Denies vertigo, Denies voice changes Cardiovascular: Reports as per HPI, Denies chest pain, Denies claudication, Denies decreased exercise tolerance, Denies dyspnea on exertion, Denies edema, Denies high blood pressure, Denies irregular heart beat, Denies leg edema, Denies lightheadedness, Denies orthopnea, Denies palpitations, Denies paroxysmal nocturnal dyspnea, Denies phlebitis, Denies rapid heart beat, Denies shortness of breath, Denies syncope Respiratory: Reports as per HPI, Denies congestion, Denies cough, Denies cough with sputum, Denies dyspnea, Denies excessive sputum, Denies hemoptysis, Denies home oxygen, Denies pain, Denies pain on inspiration, Denies pleurisy, Denies respiratory infections, Denies sleep apnea, Denies snoring, Denies wheezing Gastrointestinal: Reports as per HPI, Denies abdominal pain, Denies belching, Denies bloating, Denies BRBPR, Denies change in bowel habits, Denies coffee ground emesis, Denies constipation, Denies diarrhea, Denies dyspepsia, Denies early satiety, Denies excessive gas, Denies heartburn, Denies hematemesis, Denies hematochezia, Denies indigestion, Denies jaundice, Denies lactose intolerance, Denies loss of appetite, Denies melena, Denies nausea, Denies vomiting Genitourinary: Reports as per HPI, Denies abnormal vaginal bleeding, Denies decreased libido, Denies difficulty conceiving, Denies difficulty voiding, Denies dysmenorrhea, Denies dyspareunia, Denies dysuria, Denies flank pain, Denies genital sores, Denies hematuria, Denies hot flashes, Denies incomplete emptying, Denies kidney stones, Denies menorrhagia, Denies mixed incontinence, Denies nocturia, Denies pelvic pain, Denies post void dribbling, Denies , Denies prolapse symptoms, Denies stress incontinence, Denies urge incontinence , Denies urgency, Denies urinary frequency, Denies vaginal discharge, Denies vaginal dryness, Denies vaginal itching, Denies vaginal odor Menstruation: Reports as per HPI Musculoskeletal: Reports as per HPI, Denies arm numbness/tingling, Denies atrophy, Denies fractures, Denies frequent falls, Denies gait dysfunction, Denies hot joints, Denies leg numbness/tingling, Denies limitation of motion, Denies loss of height, Denies low back pain, Denies morning stiffness, Denies muscle cramps, Denies muscle weakness, Denies myalgias, Denies neck pain, Denies neck stiffness, Denies prior amputations, Denies redness of joints, Denies shooting arm pain, Denies shooting leg pain Integumentary: Reports as per HPI, Denies acne, Denies boils, Denies brittle nails, Denies change in hair/nails, Denies color changes, Denies darkening of skin, Denies depigmentation, Denies dryness, Denies foot/leg ulcers, Denies growths, Denies hirsutism, Denies lesions, Denies onychomycosis, Denies pruritus , Denies rash, Denies sores, Denies striae, Denies unusual bruising, Denies wounds Neurological: Reports as per HPI, Denies aphasia, Denies ataxia, Denies balance difficulties, Denies burning pain, Denies change in mentation, Denies change in smell/taste, Denies change in speech, Denies confusion, Denies convulsions, Denies double vision, Denies gait dysfunction, Denies head injury, Denies headaches, Denies hearing difficulties, Denies lack of coordination, Denies loss of vision, Denies memory loss, Denies migraines, Denies motor disturbance, Denies numbness, Denies paralysis, Denies paresthesias, Denies seizures, Denies sensory deficit, Denies spasticity, Denies syncope, Denies tic, Denies tingling , Denies transient paralysis, Denies tremors, Denies vertigo, Denies weakness, Denies visual changes Psychiatric: Reports as per HPI Endocrine: Reports as per HPI Hematologic/Lymphatic: Reports as per HPI, Denies easy bleeding, Denies easy bruising, Denies lymphadenopathy, Denies lymphedema, Denies thrombophilia Allergic/Immunologic: Reports as per HPI Past Medical History Past Medical History: Cancer, GERD/Reflux Additional Past Medical History / Comment(s): plueral effusion, Rt breast cancer dx at age 28, liver and lower spine, lining of lung cancer, hiatal hernia , History of Any Multi-Drug Resistant Organisms: None Reported Past Surgical History: Breast Surgery Additional Past Surgical History / Comment(s): adrián mastecomy with FRANCISCO reconstructive surgery, R ankle ORIF, carpel tunnel adrián, mediport/later removed Past Anesthesia/Blood Transfusion Reactions: No Reported Reaction Smoking Status: Never smoker - Past Family History Mother Family Medical History: No Reported History Medications and Allergies Home Medications Medication Instructions Recorded Confirmed Type Palbociclib [Ibrance] 125 mg PO DAILY 11/30/16 04/20/18 History ALPRAZolam 1 mg PO TID PRN 03/14/17 04/20/18 History Faslodex Injection 1 injection IM Q30D 03/15/18 04/20/18 History Lupron Injection 1 injection IM Q90D 03/15/18 04/20/18 History Xgeva Injection 1 injection IM Q30D 03/15/18 04/20/18 History Esomeprazole Magnesium [NexIUM] 20 mg PO DAILY 04/10/18 04/20/18 History Hydrocodone/Acetaminophen [[place] 1 tab PO Q6HR PRN 04/20/18 04/20/18 History 5-325] Allergies Allergy/AdvReac Type Severity Reaction Status Date / Time No Known Allergies Allergy Verified 04/20/18 14:34 Physical Exam Vitals: Vital Signs Temp Pulse Pulse Resp BP Pulse Ox 04/20/18 14:55 97 F L 80 12 124/76 92 L 04/20/18 14:00 74 18 138/76 100 04/20/18 13:30 74 18 148/76 98 04/20/18 13:00 82 18 156/78 100 04/20/18 12:30 90 18 150/79 100 04/20/18 12:00 71 18 146/74 100 04/20/18 11:45 72 18 156/81 100 04/20/18 11:30 76 18 142/71 100 04/20/18 11:10 97.4 F L 92 16 161/76 95 04/20/18 09:20 72 18 94 L 04/20/18 08:16 99.3 F 78 18 120/62 94 L Intake and Output 04/20/18 04/20/18 04/20/18 06:59 14:59 22:59 Intake Total 1100 Output Total 15 Balance 1085 Intake: IV 1100 Output: Estimated Blood Loss 15 Other: Weight 100.527 kg 100.527 kg - Constitutional General appearance: cooperative, no acute distress, obese - EENT Eyes: anicteric sclerae, EOMI, PERRLA, dentition normal, normal appearance ENT: no hard of hearing, hearing grossly normal, NA/AT, normal oropharynx, no other, no pharyngeal erythema, no thrush, no tonsillar exudates, no tonsillar swelling - Neck Neck: no lymphadenopathy, normal ROM, no other, no rigidity, no stridor, no thyromegaly Thyroid: bilateral: normal size, negative: enlarged, firm - Respiratory Respiratory: bilateral: CTA, negative: diminished, dullness, rales, rhonchi - Cardiovascular Rhythm: regular Heart sounds: normal: S1, S2 Abnormal Heart Sounds: no systolic murmur, no diastolic murmur, no rub, no S3 Gallop, no S4 Gallop, no click, no other - Gastrointestinal General gastrointestinal: no absent bowel sounds, no decreased bowel sounds, no distended, no hepatomegaly, no hyperactive bowel sounds, normal bowel sounds, no organomegaly, no rigid, no scaphoid, soft, no splenomegaly, no tenderness, no umbilical hernia, no ventral hernia - Integumentary Integumentary: decreased turgor, normal - Neurologic Neurologic: CNII-XII intact - Musculoskeletal Musculoskeletal: no gait normal, no generalized weakness, no strength equal bilaterally, no right sided weakness, no left sided weakness - Psychiatric Psychiatric: A&O x's 3, appropriate affect, intact judgment & insight Assessment and Plan Plan: 1. Status post rlaparoscopic scopic gastric sleeveon 04/20/20184 morbid obesity BMI of 36, patient's doing well, await her follow-up upper GI series in the morning, continue on opiates for pain control, and anti-emetics, incentive spirometryprogram on when necessary albuterol when necessary O2 supplementation as needed 2. GERD with hiatal hernia, requiring laparoscopic repair on 04/20/2018 3. History of right breast cancer at age 28, bilateral mastectomy, on xgeva monthly, Ibrancewould resume post discharge, Lupron injection to the short post discharge, Faslodex injection every 30 days tertium post discharge 4. AnxietyXanax 1 mg 3 times a day when necessary 5. GI prophylaxis, no long-term PPIs needed, patient would require only short- term Protonixduring this hospitalization, 6. DVT prophylaxis, moderate restrictive secondary to general surgery,ZANE anson and SCDsLovenox 40 mg every 12 hours as directed 7. Nutritional deficiency, patient was given IV parenteral vitamin supplementation, Thank you Dr. Mac in allowing us up as indicated. Patient. We are going to follow her with you during this current hospitalization, recommendations to her treatment to be based on clinical progress
[2018-04-20] MEDS: ALBUTEROL NEBULIZED 2.5 MG/3 ML INHALATION SCH ×3 (16:30→20:01)
[2018-04-20 16:42] VITALS: BMI 36.6
[2018-04-20] MEDS ORDERED: ALPRAZolam 1 MG TAB PO PRN (17:00)
[2018-04-20] MEDS ORDERED: LORazepam 2 MG/ML INJ IV PRN (23:16)
[2018-04-21] MEDS: KETOROLAC 30 MG/ML 1 ML VIAL IVP SCH ×4 (00:13→16:47)
[2018-04-21] MEDS: 0.9% NACL WITH KCL 20 MEQ/L 1,000 ML IV SCH (00:40)
[2018-04-21] MEDS: HYDROmorphone 1 MG/ML 1 ML SYRINGE IVP PRN (04:43)
[2018-04-21] MEDS: LACTATED RINGERS 1,000 ML IV SCH (06:21)
[2018-04-21] MEDS: ONDANSETRON 4 MG/2 ML VIAL IVP PRN ×2 (07:24→16:46)
[2018-04-21 07:55] LABS: Basophils % (A) 0 %; Eosinophils % (A) 0 %; HCT 31.2 % (34.0-46.0); HGB 10.6 gm/dL (11.4-16.0); Lymphocytes % (A) 21 %; MCH 36.4 pg (25.0-35.0); MCV 107.2 fL (80.0-100.0); Macrocytosis Moderate; Mean Platelet Volume 7.2; Monocytes # (A) 0.4 k/uL (0-1.0); Monocytes % (A) 8 %; Neutrophils # (A) 3.2 k/uL (1.3-7.7); Neutrophils % (A) 66 %; Platelet Count 162 k/uL (150-450); RBC 2.91 m/uL (3.80-5.40); RDW 14.7 % (11.5-15.5); WBC 4.8 k/uL (3.8-10.6)
[2018-04-21] MEDS: ALBUTEROL NEBULIZED 2.5 MG/3 ML INHALATION SCH ×3 (07:55→16:15)
[2018-04-21] MEDS ORDERED: 1: MVI, ADULT NO.4 WITH VIT K 10 ML, THIAMINE 100 MG, FOLIC ACID 1 MG, POTASSIUM CHLORID IV SCH ×6 (08:00)
[2018-04-21 08:15] LABS: Anion Gap 7 mmol/L; Blood Urea Nitrogen 11 mg/dL (7-17); Calcium 8.2 mg/dL (8.4-10.2); Carbon Dioxide 24 mmol/L (22-30); Chloride 110 mmol/L (98-107); Magnesium 2.1 mg/dL (1.6-2.3); Phosphorus 2.7 mg/dL (2.5-4.5); Potassium 4.3 mmol/L (3.5-5.1); Sodium 141 mmol/L (137-145)
[2018-04-21] MEDS ORDERED: ENOXAPARIN 40 MG/0.4 ML SYRINGE SQ SCH (09:00)
[2018-04-21] MEDS ORDERED: PANTOPRAZOLE 40 MG/10 ML VIAL IV SCH (09:00)
--- NOTE | 2018-04-21 09:33 | P.PN ---
Subjective Progress Note Date: 04/21/18 Principal diagnosis: The more recently, sleeve gastrectomy postop day 1 Patient underwent sleeve gastric history. She is doing quite well. She is minimal clearance of pain. Objective - Vital Signs Vital signs: Vital Signs Temp 99.0 F 04/21/18 07:00 Pulse 102 H 04/21/18 08:04 Resp 16 04/21/18 07:00 BP 131/86 04/21/18 07:00 Pulse Ox 92 L 04/21/18 07:58 Intake & Output 04/20/18 04/21/18 04/21/18 18:59 06:59 18:59 Intake Total 1220 1320 Output Total 115 Balance 1105 1320 Weight 99.79 kg Intake: IV 1100 Intake, IV Titration 1200 Amount 0.9% NaCl with KCl 20 Meq 1200 /l 1,000 ml @ 150 mls/hr IV .Q6H40M [facility] Rx#: [id number] Oral 120 120 Output: Urine 100 Estimated Blood Loss 15 Other: Voiding Method Toilet # Voids 1 - Respiratory Respiratory: bilateral: CTA - Gastrointestinal Gastrointestinal Comment(s): Abdomen soft, incision sites are clean dry and intact. - Labs CBC & Chem 7: 04/21/18 07:09 04/21/18 07:09 Labs: Abnormal Lab Results - Last 24 Hours (Table) 04/21/18 04/21/18 Range/Units 07:09 07:09 RBC 2.91 L (3.80-5.40) m/uL Hgb 10.6 L (11.4-16.0) gm/dL Hct 31.2 L (34.0-46.0) % MCV 107.2 H (80.0-100.0) fL MCH 36.4 H (25.0-35.0) pg Chloride 110 H (98-107) mmol/L Calcium 8.2 L (8.4-10.2) mg/dL Assessment and Plan Plan: Status post sleeve yesterday. Patient will undergo esophagram. She'll also be discharged home today.
--- NOTE | 2018-04-21 09:50 | FL ---
EXAMINATION TYPE: FL UGI DATE OF EXAM ORDERED: 04/21/2018 9:36 AM HISTORY: Status post gastric sleeve. COMPARISON: None. FINDINGS: The patient drank contrast with ease. There is prompt egress of contrast from the esophagu s into the stomach. The ligament of Treitz is in the normal location. There is no evidence of extrava sation. No significant free air is seen. IMPRESSION: STATUS POST GASTRIC SLEEVE PROCEDURE.
--- NOTE | 2018-04-21 11:27 | P.PN ---
Subjective Progress Note Date: 04/21/18 this is a pleasant 38-year-old female patient of Dr. Mccormick. She has underlying history of GERD, morbid obesity, right breast cancer at age 28, hiatal hernia, with prior history of bilateral mastectomy and reconstructive surgery, admitted service of Dr. Weiss laparoscopic gastric sleeve for BMI of 36.9. Patient has failed conservative treatments for weight loss,and was transferred to the medical floor under stable conditions. Patient denies any chest pain palpitation shortness of breath lightheadedness, pulse oximetry is are 100% using 3 L 92% on room air.incentive spirometry, is being provided, and as well as pain control and anti-emesis. 04/21: Patient has been afebrile, mildly tachycardic at 102. Pulse ox is 92% on room air. Incentive spirometry as reaching 1500 ML's. White count is normal at 4.8 and hemoglobin is 10.6. Electrolytes and renal function are within normal limits. Upper GI shows no active evidence of extravasation or significant free air. Patient has been stable and is cleared from medicine for discharge home. Review Of Systems: Constitutional: No fever, no chills, no night sweats. No weakness, fatigue or lethargy. EENT: No headache. No blurred vision or double vision, no loss of vision. No epistaxis. No sore throat. Lungs: No shortness of breath, cough, no sputum production. No wheezing. Cardiovascular: No chest pain, no lower extremity edema. No palpitations. No paroxysmal nocturnal dyspnea. No orthopnea. No lightheadedness or dizziness. No syncopal episodes. Abdominal: +mild abdominal pain. No nausea, vomiting. No diarrhea. No constipation. No bloody or tarry stools. Genitourinary: No dysuria, increased frequency, urgency. No urinary retention. Musculoskeletal: No myalgias. No muscle weakness, no gait dysfunction, no frequent falls. No back pain. No neck pain. Integumentary: + wounds, no lesions. No rash or pruritus. No unusual bruising. No change in hair or nails. Neurologic: No aphasia. No facial droop. No change in mentation. No head injury. No headache. No paralysis. No paresthesia. Psychiatric: No depression. No anxiety. No mood swings. Endocrine: No abnormal blood sugars. No weight change. No excessive sweating or thirst. No cold intolerance. Objective - Vital Signs Vital signs: Vital Signs Temp 99.0 F 04/21/18 07:00 Pulse 102 H 04/21/18 08:04 Resp 16 04/21/18 07:00 BP 131/86 04/21/18 07:00 Pulse Ox 92 L 04/21/18 07:58 Intake & Output 04/20/18 04/21/18 04/21/18 18:59 06:59 18:59 Intake Total 1220 1320 Output Total 115 Balance 1105 1320 Weight 99.79 kg Intake: IV 1100 Intake, IV Titration 1200 Amount 0.9% NaCl with KCl 20 Meq 1200 /l 1,000 ml @ 150 mls/hr IV .Q6H40M [facility] Rx#: [id number] Oral 120 120 Output: Urine 100 Estimated Blood Loss 15 Other: Voiding Method Toilet # Voids 1 - Exam General appearance: cooperative, no acute distress, obese - EENT Eyes: anicteric sclerae, EOMI, PERRLA, dentition normal, normal appearance ENT: no hard of hearing, hearing grossly normal, NA/AT, normal oropharynx, no other, no pharyngeal erythema, no thrush, no tonsillar exudates, no tonsillar swelling - Neck Neck: no lymphadenopathy, normal ROM, no other, no rigidity, no stridor, no thyromegaly Thyroid: bilateral: normal size, negative: enlarged, firm - Respiratory Respiratory: bilateral: CTA, negative: diminished, dullness, rales, rhonchi - Cardiovascular Rhythm: regular Heart sounds: normal: S1, S2 Abnormal Heart Sounds: no systolic murmur, no diastolic murmur, no rub, no S3 Gallop, no S4 Gallop, no click, no other - Gastrointestinal General gastrointestinal: no absent bowel sounds, no decreased bowel sounds, no distended, no hepatomegaly, no hyperactive bowel sounds, + normal bowel sounds, no organomegaly, no rigid, no scaphoid, soft, no splenomegaly, no tenderness, no umbilical hernia, no ventral hernia - Integumentary Integumentary: decreased turgor, normal - Neurologic Neurologic: CNII-XII intact - Musculoskeletal Musculoskeletal: no gait normal, no generalized weakness, no strength equal bilaterally, no right sided weakness, no left sided weakness - Psychiatric Psychiatric: A&O x's 3, appropriate affect, intact judgment & insight - Labs CBC & Chem 7: 04/21/18 07:09 04/21/18 07:09 Labs: Abnormal Lab Results - Last 24 Hours (Table) 04/21/18 04/21/18 Range/Units 07:09 07:09 RBC 2.91 L (3.80-5.40) m/uL Hgb 10.6 L (11.4-16.0) gm/dL Hct 31.2 L (34.0-46.0) % MCV 107.2 H (80.0-100.0) fL MCH 36.4 H (25.0-35.0) pg Chloride 110 H (98-107) mmol/L Calcium 8.2 L (8.4-10.2) mg/dL Assessment and Plan Plan: 1. Status post laparoscopic gastric sleeve on 04/20/20184 morbid obesity BMI of 36, patient's doing well, upper GI series normal, continue on opiates for pain control, and anti-emetics, incentive spirometry, albuterol when necessary O2 supplementation as needed 2. GERD with hiatal hernia, requiring laparoscopic repair on 04/20/2018 3. History of right breast cancer at age 28, bilateral mastectomy, on xgeva monthly, Ibrancewould resume post discharge, Lupron injection to the short post discharge, Faslodex injection every 30 days tertium post discharge 4. AnxietyXanax 1 mg 3 times a day when necessary 5. GI prophylaxis, no long-term PPIs needed, patient would require only short- term Protonixduring this hospitalization, 6. DVT prophylaxis, moderate restrictive secondary to general surgery,ZANE griggs and SCDsLovenox 40 mg every 12 hours as directed 7. Nutritional deficiency, patient was given IV parenteral vitamin supplementation, Discharge plan: Return home Impression and plan of care have been directed as dictated by the signing physician. Radha Morin nurse practitioner acting as scribe for signing physician.
[2018-04-21 16:12] VITALS: BP 133/72; PULSE 87; RESP 16; TEMP 98.7
== END 2018-04-21 17:25 | disposition home or self-care (01) | DRG 621 ==
LOC: 2ORMAIN 07:41 → 4SSUR 13:59
PROVIDERS: ADMIT Surgery; ATTEND Surgery
PROC: 0BQT4ZZ Repair Diaphragm, Percutaneous Endoscopic Approach (ICD-10-PCS; 2018-04-20)
PROC: 0DB64Z3 Excision of Stomach, Percutaneous Endoscopic Approach, Vertical (ICD-10-PCS; principal; 2018-04-20 09:40)
DX: E66.01 Morbid (severe) obesity due to excess calories (principal); K21.9 Gastro-esophageal reflux disease without esophagitis; K44.9 Diaphragmatic hernia without obstruction or gangrene; Z68.37 Body mass index [BMI] 37.0-37.9, adult; R00.0 Tachycardia, unspecified; M19.90 Unspecified osteoarthritis, unspecified site; F41.9 Anxiety disorder, unspecified; E63.9 Nutritional deficiency, unspecified; Z85.118 Personal history of other malignant neoplasm of bronchus and lung; Z85.3 Personal history of malignant neoplasm of breast; Z90.13 Acquired absence of bilateral breasts and nipples; Z79.810 Long term (current) use of selective estrogen receptor modulators (SERMs); Z79.818 Long term (current) use of other agents affecting estrogen receptors and estrogen levels; Z79.899 Other long term (current) drug therapy
CPT/HCPCS: 74240; 80051; 81025; 82310; 82565; 83735; 84100; 84520; 85025; 88307; 94640

== ENCOUNTER → 2018-04-30 | Outpatient (CLI) | payer MEDICARE, OTHER ==
[2018-04-30 13:50] VITALS: BP 129/76; PULSE 74; RESP 16; TEMP 98.1; BMI 35.0
--- NOTE | 2018-04-30 15:30 | P.HPBAR ---
Bariatric H&P - History & Physicial H&P Date: 04/30/18 History & Physicial: Visit/CC: post sleeve Patient initial contact: Initial weight: 102.104 kg Initial weight in pounds: 225.10 Height: 5 ft 5.5 in Initial BMI: 36.8 Last weight: Current weight: 97.069 kg Current weight in pounds: 214.00 Current BMI: 35.0 [place] body weight (based on NIH guidelines): 57.833 kg Excess body weight loss: 11.3% The patient is a 38 year-old F who presents for Bariatric Assessment. Patient presents today for laparoscopic sleeve gastrectomy follow-up. The patient doing quite well. She has minimal complaints of pain. Past Medical History Past Medical History: Cancer, GERD/Reflux Additional Past Medical History / Comment(s): plueral effusion, Rt breast cancer dx at age 28, liver and lower spine, lining of lung cancer, hiatal hernia , History of Any Multi-Drug Resistant Organisms: None Reported Past Surgical History: Bariatric Surgery, Breast Surgery Additional Past Surgical History / Comment(s): adrián mastecomy with FRANCISCO reconstructive surgery, R ankle ORIF, carpel tunnel adrián, mediport/later removedslee sleeve gastrectomy 04-20-18 Past Anesthesia/Blood Transfusion Reactions: No Reported Reaction Past Psychological History: Anxiety Smoking Status: Never smoker Past Alcohol Use History: Occasional Additional Past Alcohol Use History / Comment(s): QUIT SMOKING EARLY 'S Past Drug Use History: None Reported Additional Drug Use History / Comment(s): . - Past Family History Mother Family Medical History: No Reported History Surgical - Exam Vital Signs Temp Pulse Resp BP 98.1 F 74 16 129/76 04/30/18 13:45 04/30/18 13:45 04/30/18 13:45 04/30/18 13:45 - General well developed, no distress - Eyes PERRL - ENT normal pinna, normal mucosa - Cardiovascular Rhythm: regular - Abdomen Abdomen: soft, non tender Bariatric Assessment & Plan Plan: is status post sleeve gastrectomy. She's doing quite well. She will follow-up in one month. Bariatric Checklist Checklist: Plan: Checklist: EGD: 1. Hiatal hernia: 2. H. Pylori: HgbA1c: Vitamin D: Smoking: Never smoker Primary care physician referral: Jeronimo Mccormick ([place]), Dr. Pablo Hickey ( oncologist) Psychiatry clearance: Cardiology clearance: Sleep study: Diet journal: VTE risk score: VTE risk level: Rehab needs at discharge:
== END | disposition home or self-care (01) ==
LOC: BARWHC3 13:36
PROVIDERS: ATTEND Surgery
DX: Z48.815 Encounter for surgical aftercare following surgery on the digestive system (principal); E66.01 Morbid (severe) obesity due to excess calories; Z68.35 Body mass index [BMI] 35.0-35.9, adult; Z98.84 Bariatric surgery status
CPT/HCPCS: 97802; G0463; 99211

== ENCOUNTER → 2018-05-21 | Outpatient (CLI) | payer MEDICARE, OTHER ==
[2018-05-21 14:04] VITALS: BP 116/76; PULSE 73; TEMP 98; BMI 33.7
--- NOTE | 2018-05-21 16:57 | P.HPBAR ---
Bariatric H&P - History & Physicial H&P Date: 05/21/18 History & Physicial: Visit/CC: one month sleeve f/u Patient initial contact: Initial weight: 102.104 kg Initial weight in pounds: 225.10 Height: 5 ft 5.5 in Initial BMI: 36.8 Last weight: Current weight: 93.485 kg Current weight in pounds: 206.10 Current BMI: 33.7 [place] body weight (based on NIH guidelines): 57.833 kg Excess body weight loss: 19.4% The patient is a 38 year-old F who presents for Bariatric Assessment. Patient presents today for sleeve gastrectomy fall. She is doing quite well. She has had some mild GERD. Past Medical History Past Medical History: Cancer Additional Past Medical History / Comment(s): plueral effusion, R breast cancer , liver and lower spine cancer History of Any Multi-Drug Resistant Organisms: None Reported Past Surgical History: Bariatric Surgery, Breast Surgery Additional Past Surgical History / Comment(s): double mastecomy, R ankle surg, carpel tunnel adrián, hx of mediport Past Anesthesia/Blood Transfusion Reactions: No Reported Reaction Smoking Status: Never smoker - Past Family History Mother Family Medical History: No Reported History Surgical - Exam Vital Signs Temp Pulse BP 98.0 F 73 116/76 05/21/18 13:53 05/21/18 13:53 05/21/18 13:53 - General well developed, no distress - Eyes PERRL - ENT normal pinna - Neck no masses - Respiratory normal expansion - Cardiovascular Rhythm: regular - Abdomen Abdomen: soft, non tender Bariatric Assessment & Plan Plan: Status post sleeve yesterday. Patient is doing quite well. Her GERD is minimal and will be observed. She'll follow-up in one month. Bariatric Checklist Checklist: Plan: Checklist: EGD: 1. Hiatal hernia: 2. H. Pylori: HgbA1c: Vitamin D: Smoking: Never smoker Primary care physician referral: [facility] Psychiatry clearance: Cardiology clearance: Sleep study: Diet journal: VTE risk score: VTE risk level: Rehab needs at discharge:
== END ==
LOC: BARWHC3 13:09
PROVIDERS: ATTEND Surgery
DX: Z48.815 Encounter for surgical aftercare following surgery on the digestive system (principal); E66.01 Morbid (severe) obesity due to excess calories; Z68.33 Body mass index [BMI] 33.0-33.9, adult; Z98.84 Bariatric surgery status
CPT/HCPCS: 97803; G0463; 99211

== ENCOUNTER → 2018-08-06 | Outpatient (CLI) | payer MEDICARE, OTHER ==
[2018-08-06 14:07] VITALS: BP 128/87; PULSE 67; TEMP 98.2; BMI 32.4
--- NOTE | 2018-08-07 10:43 | P.HPBAR ---
Bariatric H&P - History & Physicial H&P Date: 08/06/18 History & Physicial: Visit/CC: sleeve f/ Patient initial contact: Initial weight: 102.104 kg Initial weight in pounds: 225.10 Height: 5 ft 5.5 in Initial BMI: 36.8 Last weight: Current weight: 89.766 kg Current weight in pounds: 197.90 Current BMI: 32.4 [place] body weight (based on NIH guidelines): 57.833 kg Excess body weight loss: 27.8% The patient is a 38 year-old F who presents for Bariatric Assessment. Patient presents for sleeve gastrectomy follow-up. She's had some minimal GERD. She has lost 15 pounds since her last visit. Past Medical History Past Medical History: Cancer Additional Past Medical History / Comment(s): plueral effusion, R breast cancer , liver and lower spine cancer History of Any Multi-Drug Resistant Organisms: None Reported Past Surgical History: Bariatric Surgery, Breast Surgery Additional Past Surgical History / Comment(s): double mastecomy, R ankle surg, carpel tunnel adrián, hx of mediport Past Anesthesia/Blood Transfusion Reactions: No Reported Reaction Past Psychological History: Anxiety Smoking Status: Never smoker Past Alcohol Use History: Occasional Additional Past Alcohol Use History / Comment(s): QUIT SMOKING EARLY 20'S Past Drug Use History: None Reported Additional Drug Use History / Comment(s): . - Past Family History Mother Family Medical History: No Reported History Surgical - Exam Vital Signs Temp Pulse BP 98.2 F 67 128/87 08/06/18 13:58 08/06/18 13:58 08/06/18 13:58 - General well developed, well nourished, no distress - Eyes PERRL - ENT normal pinna - Neck no masses - Respiratory normal expansion - Cardiovascular Rhythm: regular - Abdomen Abdomen: soft, non tender Bariatric Assessment & Plan Plan: Status post sleeve gastrectomy. Patient's GERD is minimal and will be observed. She'll follow-up in 4 weeks. Bariatric Checklist Checklist: Plan: Checklist: EGD: 1. Hiatal hernia: 2. H. Pylori: HgbA1c: Vitamin D: Smoking: Never smoker Primary care physician referral: [facility] Psychiatry clearance: Cardiology clearance: Sleep study: Diet journal: VTE risk score: VTE risk level: Rehab needs at discharge:
== END | disposition home or self-care (01) ==
LOC: BARWHC3 13:19
PROVIDERS: ATTEND Surgery
DX: E66.01 Morbid (severe) obesity due to excess calories (principal); Z68.32 Body mass index [BMI] 32.0-32.9, adult
CPT/HCPCS: 97803; G0463; 99211

== ENCOUNTER → 2018-09-25 | Outpatient (CLI) | payer MEDICARE, OTHER ==
[2018-09-25 09:42] LABS: Blood Urea Nitrogen 13 mg/dL (7-17)
--- NOTE | 2018-09-25 13:38 | CT ---
EXAMINATION TYPE: CT ChestAbdPelvis w con DATE OF EXAM: 09/25/2018 COMPARISON: 04/05/2018 and 09/14/2017 HISTORY: 38-year-old female Follow up for breast CA. TECHNIQUE: Contiguous axial scanning of the chest, abdomen, and pelvis performed with IV Contrast, pa tient injected with 100 mL of Isovue 300. Delayed images through the kidneys were obtained. Coronal/s agittal reconstructions performed. CT DLP: 974.6 mGycm Automated exposure control for dose reduction was used. FINDINGS: CHEST: Heart normal size without pericardial effusion. Aorta normal caliber with conventional arterial supply to anatomy. Bilateral TRAM flap reconstruction demonstrated. No thoracic lymphadenopathy by CT size criteria. No consolidation or pleural effusion. ABDOMEN: Post surgical changes of sleeve gastrectomy. New liver lesions are present measuring 3.7 cm segment 2 left liver lobe, 1.2 cm mid liver, and 1.2 c m peripheral right liver lobe. Portal venous system is patent. No biliary ductal dilatation. Gallbladder, adrenal glands, kidneys, spleen, and pancreas appear within normal limits. No dilated small bowel, free fluid, or free air. No mesenteric or retroperitoneal lymphadenopathy. Normal appendix. Oral contrast progressed to the rectum. No pericolonic inflammatory change. Pelvis: Bladder partially distended. Uterus and both ovaries are visualized. No abnormal fluid collection in the pelvis or pelvic lymphadenopathy seen. Bones: Stable diffuse osseous sclerotic lesions throughout. IMPRESSION: 1. HEPATIC RECURRENCE WITH NEW LIVER LESIONS. APPROXIMATELY 3 LESIONS ARE PRESENT , LARGEST MEASURING 3.7 CM. THE OTHER 2 SMALLER LESIONS MEASURE 1.2 CM EACH. 2. OTHERWISE, STABLE MASTECTOMIES WITH TRAM FLAP RECONSTRUCTION AND DIFFUSE OSTEOSCLEROTIC BONE LESIO NS. 3. NO OTHER METASTATIC DISEASE IDENTIFIED.
== END | disposition home or self-care (01) ==
LOC: RADCTMAIN 08:59
PROVIDERS: ATTEND Internal Medicine Hematology & Oncology
DX: Z08 Encounter for follow-up examination after completed treatment for malignant neoplasm (principal); M89.9 Disorder of bone, unspecified; K76.9 Liver disease, unspecified; Z85.3 Personal history of malignant neoplasm of breast; Z90.13 Acquired absence of bilateral breasts and nipples
CPT/HCPCS: 82565; 84520; 71260; 74177; 36415; Q9967

== ENCOUNTER → 2018-10-05 | Outpatient (CLI) | payer MEDICARE, OTHER ==
--- NOTE | 2018-10-08 14:19 | MR ---
EXAMINATION TYPE: MR liver wo/w con DATE OF EXAM: 10/05/2018 COMPARISON: CT scan 09/25/2018 HISTORY: Breast Ca / Abnormal CT CONTRAST: Standard multiplanar, multisequence MRI departmental protocol utilizing 7.5 mL intravenous Gadavist g adolinium contrast. FINDINGS: LIVER: There is a hepatic lesion measuring 4.1 x 3.3 cm segment II left lobe of the liver. There is a 2.4 x 2.5 cm cm mid liver. There is a 1.5 x 1 cm peripheral right liver lobe. ABDOMEN: Spleen, pancreas, and adrenal glands have a normal appearance. No hydronephrosis or nephrolithiasis. Kidneys are symmetric in size. No evidence of pathologic adenopathy or free fluid. Bowel gas pattern nonspecific. There are focal areas of sclerosis involving several lumbar vertebral segments as well as portions of the thoracic spine which are low in signal and may represent blastic metastases. Additionally, suspe ct sclerosis involving the left iliac wing. Findings compatible with previously reported diffuse osse ous metastasis. IMPRESSION: 1. There are 3 intrahepatic lesions suspicious for metastasis as described above with the largest lor suring 4.1 x 3.3 cm in segment 2 left lobe of the liver. This is near the dome of the liver and near the level the diaphragm just below the level of the heart. 2. Diffuse skeletal metastases.
== END ==
LOC: RADMRIMAIN 16:43
PROVIDERS: ATTEND Internal Medicine Hematology & Oncology
DX: C50.411 Malignant neoplasm of upper-outer quadrant of right female breast (principal); C79.51 Secondary malignant neoplasm of bone; K76.9 Liver disease, unspecified
CPT/HCPCS: 74183; A9585

== ENCOUNTER → 2019-01-22 | Outpatient (CLI) | payer MEDICARE, OTHER ==
[2019-01-22 14:10] LABS: African American GFR (CKD) >90 (>60 ml/min/1.73 sqM); Blood Urea Nitrogen 10 mg/dL (7-17)
--- NOTE | 2019-01-22 15:42 | CT ---
EXAMINATION TYPE: CT ChestAbdPelvis w con DATE OF EXAM: 01/22/2019 COMPARISON: Prior CT 09/25/2018 HISTORY: mets, hx of breast ca CT DLP: 714.6 mGycm Automated exposure control for dose reduction was used. CONTRAST: CT scan of the chest, abdomen and pelvis is performed with Oral Contrast and with IV Contrast, patien t injected with 100 mL of Isovue 300. FINDINGS: LUNGS: The lungs are grossly clear, there is no concerning parenchymal mass or nodule identified. T here is no pleural effusion or pneumothorax seen. The tracheobronchial tree is patent. MEDIASTINUM: There are no greater than 1 cm hilar or mediastinal lymph nodes. No pericardial effusi on is seen. AORTA: No significant abnormality is seen. OTHER: Postop change of the stomach is seen. LIVER/GB: There has been marked interval progression of abnormal low attenuation within the left lobe of the liver suggesting some focal fatty infiltration, some similar findings present in the region o f the segment 1. There is a mass immediately anterior to the right portal vein which has increased in size compared to previous exam when it measured 12 mm, the lesion now measures approximately 5 cm wi th some central low attenuation, enhancing wall. The previously identified lesion in the right lobe p osterior laterally that measures approximately 12 mm now measures approximately 3.4 cm. The left lobe lesion previously measured at 3.7 cm now measures approximately 5 cm. PANCREAS: No significant abnormality is seen. SPLEEN: No significant abnormality is seen. ADRENALS: No significant abnormality is seen. KIDNEYS: No significant abnormality is seen. REPRODUCTIVE ORGANS: No gross abnormality seen. BOWEL: No significant abnormality is seen. FREE AIR: No Free Air visible. ASCITES: None seen. RETROPERITONEAL ADENOPATHY: No retroperitoneal adenopathy is seen. LYMPH NODES: No greater than 1 cm abdominal or pelvic lymph nodes are appreciated. URINARY BLADDER: No significant abnormality is seen. PELVIC ADENOPATHY: None visualized. OSSEOUS STRUCTURES: Sclerotic bone metastasis are again noted. Right femoral neck lesion is again se en, multiple foci within the pelvis and skeleton as on prior exam. IMPRESSION: The masses within liver shows progression in size
== END ==
LOC: RADCTMAIN 13:26
PROVIDERS: ATTEND Internal Medicine Hematology & Oncology
DX: C50.411 Malignant neoplasm of upper-outer quadrant of right female breast (principal)
CPT/HCPCS: 71260; 74177; 82565; 84520

== ENCOUNTER 2019-02-01 20:59 | Emergency (ER) | payer MEDICARE, OTHER ==
[2019-02-01] MEDS ORDERED: HYDROmorphone 1 MG/ML 1 ML SYRINGE IVP STA ×2 (21:21→23:18)
--- NOTE | 2019-02-01 21:23 | ED ---
General Adult HPI - General Chief complaint: Abdominal Pain Stated complaint: Abdominal pain, procedure earlier today, CA PT Time Seen by Provider: 02/01/19 21:08 Source: patient Mode of arrival: wheelchair Limitations: no limitations - History of Present Illness Initial comments: Dictation was produced using [employer] dictation software. please excuse any grammatical, word or spelling errors. Chief Complaint: 38-year-old female past medical history of breast cancer, very ALLERGIC surgery since with abdominal pain. History of Present Illness: 38-year-old female she has a history of liver cancer. States that she began having pain at approximately 7 PM today. Patient had ERCP earlier today done at [facility]. States she was in usual state of health. She then went for an MRI couple hours later. 7 PM she a bruptly felt severe epigastric abdominal pain. She states her pain is worse with palpation. She did feel nauseous however didn't vomit. She was spitting up however. Denies any constitutional symptoms. States pain is a sharp crampy pain. States it is constant. The ROS documented in this emergency department record has been reviewed and confirmed by me. Those systems with pertinent positive or negative responses have been documented in the HPI. All other systems are other negative and/or noncontributory. PHYSICAL EXAM: General Impression: Alert and oriented x3, acute distress secondary to pain HEENT: Normocephalic atraumatic, extra-ocular movements intact, pupils equal and reactive to light bilaterally, mucous membranes moist. Cardiovascular: Heart regular rate and rhythm, S1&S2 audible, no murmurs, rubs or gallops Chest: Lungs clear to auscultation bilaterally, no rhonchi, no wheeze, no rales Abdomen: Bowel sounds present, abdomen soft, tenderness in the epigastric region Musculoskeletal: Pulses present and equal in all extremities, no peripheral edema Motor: no focal deficits noted Neurological: CN II-XII grossly intact, no focal motor or sensory deficits noted Skin: Icteric ED course: 38-year-old female past medical history of liver cancer presents with epigastric abdominal pain status post ERCP. All signs upon arrival are within acceptable limits. Laboratory evaluation obtained. CBC unremarkable. Coag panel is negative. Metabolic panel shows glucose 125. acidosis. Electronic derangement. Patient has a conjugated bilirubin of 6.0. Unconjugated bilirubin 2.1. Mild transaminitis. Lipase is greater than 20,000. Clinical presentation consistent with pancreatitis. It's unclear what patient's cause of pancreatitis is today. Patient did have an ERCP earlier. Given patient's clinical presentation and recent ERCP we will send patient to [facility] where she received the ERCP. patient given intravenous fluids, IV analgesia. She was feeling anxious and we gave her some benzodiazepines. Patient understandable and agreeable to plan disposition. - Related Data Home Medications Medication Instructions Recorded Confirmed Anastrozole [Arimidex] 1 mg PO DAILY 11/22/18 02/01/19 Esomeprazole Magnesium [NexIUM 20 mg PO DAILY 02/01/19 02/01/19 24Hr] Ursodiol 300 mg PO BID 02/01/19 02/01/19 Allergies Allergy/AdvReac Type Severity Reaction Status Date / Time No Known Allergies Allergy Verified 02/01/19 21:53 Review of Systems ROS Statement: Those systems with pertinent positive or pertinent negative responses have been documented in the HPI. ROS Other: All systems not noted in ROS Statement are negative. Past Medical History Past Medical History: Cancer Additional Past Medical History / Comment(s): plueral effusion, R breast cancer, liver and lower spine cancer History of Any Multi-Drug Resistant Organisms: None Reported Past Surgical History: Bariatric Surgery, Breast Surgery Additional Past Surgical History / Comment(s): double mastecomy, R ankle surg, carpel tunnel adrián, hx of mediport Past Anesthesia/Blood Transfusion Reactions: No Reported Reaction Past Psychological History: Anxiety Smoking Status: Never smoker - Past Family History Mother Family Medical History: No Reported History General Exam Limitations: no limitations Course Vital Signs 02/01/19 02/01/19 02/01/19 21:03 21:26 22:17 Temperature 98 F 98.2 F Pulse Rate 58 L 63 58 L Respiratory 18 18 17 Rate Blood Pressure 144/79 143/75 109/69 O2 Sat by Pulse 98 97 99 Oximetry Medical Decision Making - Lab Data Result diagrams: 02/01/19 21:15 02/01/19 21:15 Lab Results 02/01/19 02/01/19 02/01/19 Range/Units 21:15 21:15 21:15 WBC 5.5 (3.8-10.6) k/uL RBC 4.07 (3.80-5.40) m/uL Hgb 13.7 (11.4-16.0) gm/dL Hct 43.3 (34.0-46.0) % MCV 106.3 H (80.0-100.0) fL MCH 33.7 (25.0-35.0) pg MCHC 31.7 (31.0-37.0) g/dL RDW 13.7 (11.5-15.5) % Plt Count 285 (150-450) k/uL Neutrophils % 71 % Lymphocytes % 21 % Monocytes % 5 % Eosinophils % 1 % Basophils % 0 % Neutrophils # 3.9 (1.3-7.7) k/uL Lymphocytes # 1.2 (1.0-4.8) k/uL Monocytes # 0.3 (0-1.0) k/uL Eosinophils # 0.1 (0-0.7) k/uL Basophils # 0.0 (0-0.2) k/uL Macrocytosis Moderate PT 10.2 (9.0-12.0) sec INR 0.9 (<1.2) Sodium 141 (137-145) mmol/L Potassium 4.3 (3.5-5.1) mmol/L Chloride 109 H (98-107) mmol/L Carbon Dioxide 22 (22-30) mmol/L Anion Gap 10 mmol/L BUN 10 (7-17) mg/dL Creatinine 0.52 (0.52-1.04) mg/dL Est GFR (CKD-EPI)AfAm >90 (>60 ml/min/1.73 sqM) Est GFR (CKD-EPI)NonAf >90 (>60 ml/min/1.73 sqM) Glucose 125 H (74-99) mg/dL Calcium 9.1 (8.4-10.2) mg/dL Total Bilirubin 11.4 H (0.2-1.3) mg/dL Conjugated Bilirubin 6.0 H (0.0-0.3) mg/dL Unconjugated Bilirubin 2.1 H (0.0-1.1) mg/dL Delta Bilirubin 3.3 H (0.0-0.2) mg/dL AST 126 H (14-36) U/L ALT 91 H (9-52) U/L Alkaline Phosphatase 272 H (38-126) U/L Total Protein 7.7 (6.3-8.2) g/dL Albumin 4.0 (3.5-5.0) g/dL Lipase >47629 H (23-300) U/L Disposition Clinical Impression: Pancreatitis Disposition: OTHER INSTITUTION NOT DEFINED Condition: Critical Is patient prescribed a controlled substance at d/c from ED?: No Referrals: Jeronimo Mccormick DO [Primary Care Provider] - 1-2 days Time of Disposition: 23:21 - Out of Hospital Transfer - Req. Specs Out of Hospital Transfer - Requested Specifics: Other Emergency Center ([facility])
[2019-02-01] MEDS ORDERED: ONDANSETRON 4 MG/2 ML VIAL IVP STA (21:31)
--- NOTE | 2019-02-01 22:02 | XR ---
EXAMINATION TYPE: XR abdomen 1V DATE OF EXAM: 02/01/2019 COMPARISON: NONE HISTORY: Abdominal pain TECHNIQUE: 2 views upright FINDINGS: There is contrast in the gallbladder. There is no sign of intestinal obstruction or pneumop eritoneum. Fecal pattern is normal. There are surgical clips in the lower mid abdomen. Lung bases are clear of consolidation. IMPRESSION: Nonacute abdomen. Contrast in the gallbladder consistent with recent ERCP.
[2019-02-01 22:04] LABS: INR 0.9 (<1.2); Prothrombin Time 10.2 sec (9.0-12.0)
[2019-02-01 22:07] LABS: AST 126 U/L (14-36); African American GFR (CKD) >90 (>60 ml/min/1.73 sqM); Bilirubin, Delta 3.3 mg/dL (0.0-0.2); Blood Urea Nitrogen 10 mg/dL (7-17); Total Bilirubin 11.4 mg/dL (0.2-1.3)
[2019-02-01 22:28] LABS: Basophils % (A) 0 %; Eosinophils # (A) 0.1 k/uL (0-0.7); Eosinophils % (A) 1 %; HCT 43.3 % (34.0-46.0); HGB 13.7 gm/dL (11.4-16.0); Lymphocytes # (A) 1.2 k/uL (1.0-4.8); Lymphocytes % (A) 21 %; MCH 33.7 pg (25.0-35.0); MCHC 31.7 g/dL (31.0-37.0); MCV 106.3 fL (80.0-100.0); Macrocytosis Moderate; Mean Platelet Volume 7.8; Monocytes # (A) 0.3 k/uL (0-1.0); Monocytes % (A) 5 %; Neutrophils # (A) 3.9 k/uL (1.3-7.7); Neutrophils % (A) 71 %; Platelet Count 285 k/uL (150-450); RBC 4.07 m/uL (3.80-5.40); RDW 13.7 % (11.5-15.5); WBC 5.5 k/uL (3.8-10.6)
[2019-02-01 22:31] LABS: ALT 91 U/L (9-52); Alkaline Phosphatase 272 U/L (38-126); Anion Gap 10 mmol/L; Bilirubin,Unconjugated 2.1 mg/dL (0.0-1.1); Calcium 9.1 mg/dL (8.4-10.2); Carbon Dioxide 22 mmol/L (22-30); Chloride 109 mmol/L (98-107); Glucose 125 mg/dL (74-99); Potassium 4.3 mmol/L (3.5-5.1); Sodium 141 mmol/L (137-145); Total Protein 7.7 g/dL (6.3-8.2)
[2019-02-01] MEDS ORDERED: SODIUM CHLORIDE 0.9% 1,000 ML IV STA (23:18)
[2019-02-01] MEDS ORDERED: LORazepam 2 MG/ML INJ IV STA (23:18)
[2019-02-01 23:39] VITALS: BP 155/71; PULSE 59; RESP 16; TEMP 98.4
== END 2019-02-02 00:10 | disposition short-term general hospital (02) ==
LOC: EC 20:59
DX: K85.90 Acute pancreatitis without necrosis or infection, unspecified (principal); E87.2 Acidosis; R74.0 Nonspecific elevation of levels of transaminase and lactic acid dehydrogenase [LDH]; Z79.899 Other long term (current) drug therapy; Z92.21 Personal history of antineoplastic chemotherapy; Z85.05 Personal history of malignant neoplasm of liver; Z85.3 Personal history of malignant neoplasm of breast; Z85.830 Personal history of malignant neoplasm of bone; Z90.11 Acquired absence of right breast and nipple; Z98.84 Bariatric surgery status
CPT/HCPCS: 36415; 80053; 82248; 83690; 85025; 85610; 74018; 99285; 96374; 96375 ×2; 96376; 96361; J2060; J2405; J1170

== ENCOUNTER → 2019-05-20 | Outpatient (CLI) | payer MEDICARE, OTHER ==
[2019-05-20 13:09] LABS: African American GFR (CKD) >90 (>60 ml/min/1.73 sqM); Blood Urea Nitrogen 7 mg/dL (7-17); Non-African American GFR(CKD) >90 (>60 ml/min/1.73 sqM)
--- NOTE | 2019-05-20 15:02 | CT ---
EXAMINATION TYPE: CT abdomen pelvis w con DATE OF EXAM: 05/20/2019 COMPARISON: 01/22/2019 HISTORY: hx breast cancer CT DLP: 522.9 mGycm CONTRAST: CT scan of the abdomen and pelvis is performed with Oral Contrast and with IV Contrast, patient [place] with 100 mL of Isovue 300. FINDINGS: LUNG BASES-: No visible nodule. No infiltrate. LIVER/GB: No calcified gallstones. Hepatic lesions are again noted. The largest lesion within the l eft hepatic lobe medial segment currently measures 3.5 cm greatest dimension versus 4.3 cm previously . Appears to be new lesion posterior segment right hepatic lobe measuring 2.1 cm image . Additio nal new lesion noted anterior segment right hepatic lobe measuring 1.9 cm. Irregular lesion within th e periphery of the right hepatic lobe appears larger in size measures 3.7 x 2.8 cm versus 3.2 x 1.9 c m. PANCREAS: No inflammation. No distinct mass. SPLEEN: No splenic enlargement. No lesion seen. ADRENALS: No nodule. No thickening. KIDNEYS/BLADDER: No hydronephrosis. No nephrolithiasis. No distinct renal mass. Urinary bladder g rossly unremarkable. BOWEL: Normal appendix. Normal bowel caliber. No inflammation. Gastric sleeve changes identified. GENITAL ORGANS: Solid mass right ovary measuring 4.2 x 3.0 cm versus previous measurement of 3.7 x 2 .7 cm. No left ovarian mass. Uterus is unremarkable. LYMPH NODES: No greater than 1cm abdominal or pelvic lymph nodes are appreciated. AORTA: No significant abnormality. OSSEOUS STRUCTURES: No significant abnormality is seen. OTHER: No significant additional abnormality is seen. IMPRESSION: 1. There appears to be progressive disease to the liver. 2. Enlarging right ovarian mass. Gynecology consult advised. Neoplasm not excluded.
== END | disposition home or self-care (01) ==
LOC: RADCTMAIN 12:25
PROVIDERS: ATTEND Internal Medicine Hematology & Oncology
DX: N83.8 Other noninflammatory disorders of ovary, fallopian tube and broad ligament (principal); C50.411 Malignant neoplasm of upper-outer quadrant of right female breast
CPT/HCPCS: 82565; 84520; 74177; 36415; Q9967

== ENCOUNTER → 2019-08-15 | Outpatient (CLI) | payer MEDICARE, OTHER ==
[2019-08-15 13:59] LABS: African American GFR (CKD) >90 (>60 ml/min/1.73 sqM); Blood Urea Nitrogen 7 mg/dL (7-17); Non-African American GFR(CKD) >90 (>60 ml/min/1.73 sqM)
--- NOTE | 2019-08-15 16:20 | CT ---
EXAMINATION TYPE: CT ChestAbdPelvis w con DATE OF EXAM: 08/15/2019 INDICATION: Breast CA COMPARISON: CT chest 05/22/2019, CT abdomen pelvis 05/20/2019 CT DLP: 590.2 mGycm CONTRAST: Performed with Oral Contrast and with IV Contrast, patient injected with 100 mL of Isovue 300. TECHNIQUE: Axial images at 5 mm thick sections. Reconstructed images in the coronal plane. Delayed images through the kidneys. FINDINGS: CT CHEST: Portion of the thyroid visualized is normal. There is a 0.9 cm lymph node in the left axillary region. Series 3 image 13. This is slightly more pr ominent than the comparison. No suspicious lung nodules or focal infiltrates are present. No enlarged mediastinal or hilar adenopathy is evident. The ascending aorta diameter at the level of the main pulmonary artery is 2.6 cm. The main pulmonary artery diameter at the bifurcation is 1.[address] ABDOMEN: Liver: There are scattered ill-defined hypodensities with irregular margins suspicious for metastatic disease. 2 business services representative lesions, series 3 image 55 measure 4.4 x 4.9 cm within the medial right lo be liver and 5.5 x 3.1 cm within the periphery of the right lobe liver. These are larger than the com parison. Additional smaller lesions are present within the bilateral liver lobes. Spleen: Normal Pancreas: Normal Adrenal glands: The adrenal glands are normal. Gallbladder: Normal Kidneys: No masses are evident. No hydronephrosis is present. No cysts are present. Delayed images were obtained through the kidneys, which remain unremarkable. Aorta: Vascular calcification is within the aorta. Inferior vena cava: Normal. CT PELVIS: Loops of bowel within the abdomen and pelvis are normal. There are loops of bowel which are incom pletely distended or lack oral contrast limiting their evaluation. Appendix: Normal as visualized. Urinary bladder: Normal. Genitourinary structures: Uterus appears unremarkable. Right adnexal region appears somewhat full lor suring 4.3 x 3.5 cm. This is slightly larger than the comparison measurements of 4.2 x 3.0 cm. Osseous structures: There are multiple sclerotic areas within the osseous structures. This would incl ude areas suspicious for sclerotic metastasis within the posterior lateral left pubic ramus, the righ t pubic symphysis, bilateral femoral necks, right larger than left, anterior column left acetabulum. Medial left iliac wing within the bilateral sacrum, and essentially through the majority of the thora cic and lumbar vertebral bodies and pedicles. Sclerotic areas within the left scapula. IMPRESSIONS: 1. Enlarging hepatic masses suspicious for metastatic lesions. 2. Multiple sclerotic metastases axial skeleton visualized
== END | disposition home or self-care (01) ==
LOC: RADCTMAIN 12:36
PROVIDERS: ATTEND Internal Medicine Hematology & Oncology
DX: C50.411 Malignant neoplasm of upper-outer quadrant of right female breast (principal); C79.51 Secondary malignant neoplasm of bone; R16.0 Hepatomegaly, not elsewhere classified
CPT/HCPCS: 82565; 84520; 71260; 74177; 36415; Q9967

== ENCOUNTER → 2019-12-03 | Outpatient (CLI) | payer MEDICARE, OTHER ==
[2019-12-03 10:20] LABS: African American GFR (CKD) >90 (>60 ml/min/1.73 sqM); Blood Urea Nitrogen 12 mg/dL (7-17); Non-African American GFR(CKD) >90 (>60 ml/min/1.73 sqM)
--- NOTE | 2019-12-03 12:11 | CT ---
EXAMINATION TYPE: CT abdomen pelvis w con DATE OF EXAM: 12/03/2019 COMPARISON: 08/15/2019 HISTORY: Follow up breast cancer. CT DLP: 539.3 mGycm Automated exposure control for dose reduction was used. CONTRAST: CT scan of the abdomen pelvis is performed with IV Contrast, patient injected with 100 mL of Isovue 3 00. FINDINGS- LUNG BASES- No significant abnormality is appreciated. LIVER/GB- There are numerous lesions within the liver. At the very hepatic dome there are approximately 7 lesio ns all which appear reduced in size. The largest now measures 7 mm and previously measured 1.4 cm. Within the left lobe the largest region of previously measured 3.3 cm and now measures 2.6 cm. There are additional areas of reduced caliber metastatic lesions most noticeable in the right lobe of the liver laterally where the largest lesion previously measured 4 cm and now measures 2.2 cm. There are multiple additional nodules which have reduced in size relative to the prior exam. PANCREAS- No gross abnormality is seen. SPLEEN- No gross abnormality is seen. ADRENALS- No gross abnormality is seen. KIDNEYS/BLADDER- no hydronephrosis nephrolithiasis or renal mass. BOWEL-postsurgical change involving the stomach noted. The bowel gas pattern is nonspecific. Appendix normal. LYMPH NODES- No greater than 1cm abdominal or pelvic lymph nodes areappreciated. OSSEOUS STRUCTURES-numerous sclerotic foci are seen involving the visualized osseous structures which is similar in appearance to prior. Findings compatible with diffuse bony metastases.. OTHER- there is a right adnexal mass measuring 3.1 cm and previously measured 4.3 cm. Finding likely ovarian. Postsurgical change involving the anterior abdominal wall noted. IMPRESSION- 1. There have been interval reduction in size of all hepatic lesions relative to the prior exam sugge stive of response to therapy as measured and discussed above. 2. Stable diffuse bony metastases. 3. Right ovarian mass is reduced in size from the prior exam as measured above.
== END | disposition home or self-care (01) ==
LOC: RADCTMAIN 09:42
PROVIDERS: ATTEND Internal Medicine Hematology & Oncology
DX: K76.9 Liver disease, unspecified (principal); R93.89 Abnormal findings on diagnostic imaging of other specified body structures; C50.411 Malignant neoplasm of upper-outer quadrant of right female breast
CPT/HCPCS: 82565; 84520; 74177; 36415; Q9967

== ENCOUNTER 2020-01-02 16:21 | Emergency (ER) | payer MEDICARE ==
--- NOTE | 2020-01-02 17:32 | ED ---
General Adult HPI - General Chief complaint: Extremity Problem,Nontraumatic Stated complaint: Calf Pain/Swelling- Ca Pt Time Seen by Provider: 01/02/20 16:48 Source: patient, RN notes reviewed Mode of arrival: ambulatory Limitations: no limitations - History of Present Illness Initial comments: 39-year-old female with a past medical history of stage IV breast cancer presents to the emergency department for a chief complaint of left calf swelling. Patient states that this morning she noticed a tingling behind her left knee and in her left calf. States she noticed a bulge of her left calf muscle. Denies any significant pain. Denies any weakness of the leg. Denies any difficulty in breathing. Patient does not recall injuring the calf. Farnaz anderson called her oncologist who is concerned for possible blood clot. Patient denies any shortness of breath or chest pain. No fevers.Patient has no other complaints at this time including shortness of breath, chest pain, abdominal pain, nausea or vomiting, headache, or visual changes. - Related Data Home Medications Medication Instructions Recorded Confirmed Esomeprazole Magnesium [NexIUM 20 mg PO DAILY 02/01/19 12/31/19 24Hr] ALPRAZolam [Xanax] 1 mg PO TID PRN 02/08/19 12/31/19 Hydrocodone/Acetaminophen [[place] 1 tab PO Q6H PRN 02/08/19 12/31/19 7.5-325] Allergies Allergy/AdvReac Type Severity Reaction Status Date / Time No Known Allergies Allergy Verified 01/02/20 16:42 Review of Systems ROS Statement: Those systems with pertinent positive or pertinent negative responses have been documented in the HPI. ROS Other: All systems not noted in ROS Statement are negative. Past Medical History Past Medical History: Cancer Additional Past Medical History / Comment(s): plueral effusion, R breast cancer, liver and lower spine cancer. PANCREATITIS. History of Any Multi-Drug Resistant Organisms: None Reported Past Surgical History: Bariatric Surgery, Breast Surgery Additional Past Surgical History / Comment(s): double mastecomy, R ankle surg, carpel tunnel adrián Past Anesthesia/Blood Transfusion Reactions: No Reported Reaction Past Psychological History: Anxiety Smoking Status: Former smoker Past Alcohol Use History: Daily Past Drug Use History: None Reported - Past Family History Mother Family Medical History: No Reported History General Exam Limitations: no limitations General appearance: alert, in no apparent distress Head exam: Present: atraumatic, normocephalic, normal inspection Eye exam: Present: normal appearance, PERRL, EOMI. Absent: scleral icterus, conjunctival injection, periorbital swelling ENT exam: Present: normal exam, mucous membranes moist Neck exam: Present: normal inspection. Absent: tenderness, meningismus, lymphadenopathy Respiratory exam: Present: normal lung sounds bilaterally. Absent: respiratory distress, wheezes, rales, rhonchi, stridor Cardiovascular Exam: Present: regular rate, normal rhythm, normal heart sounds. Absent: systolic murmur, diastolic murmur, rubs, gallop, clicks Extremities exam: Present: full ROM (Full range of motion of the left lower extremity), normal capillary refill (Capillary refill less than 2 seconds in the left lower extremity, DP pulses 2+ in the left lower extremity.), other (Full range motion of the left lower extremity. Normal Bueno test). Absent: tenderness (No tenderness of the left calf.), calf tenderness (Patient does not have any calf tenderness. She has no erythema of the left calf. Patient does have what appears to be edema localized of the gastrocnemius. there is no generalized left lower leg edema) Neurological exam: Present: alert Course Vital Signs 01/02/20 16:40 Temperature 98.9 F Pulse Rate 73 Respiratory 18 Rate Blood Pressure 156/90 O2 Sat by Pulse 99 Oximetry Medical Decision Making - Medical Decision Making Ultrasound shows no evidence for acute DVT in the left leg. Patient is able to do full Phrases with the left leg. Normal Bueno test. She does not have any pain. I do not suspect full-thickness gastrocnemius tear. She may have strained this area given she got a scooter yesterday but again does not have pain. Patient will follow up with her doctor. I will give her orthopedic follow-up if needed. She will return for any worsening symptoms.I discussed this case with attending Dr. Das who agrees with this assessment and treatment plan. Disposition Clinical Impression: Leg swelling Disposition: HOME SELF-CARE Condition: Good Instructions (If sedation given, give patient instructions): Leg Edema (ED) Additional Instructions: Please take Motrin and Tylenol for any pain. You can try to keep the leg elevated. You could try to wrap it with an Stan wrap as well. Follow-up with your doctor in one to 2 days. Return here to the emergency room for any worsening symptoms. If you have ongoing problems you can follow-up with orthopedics as well. Is patient prescribed a controlled substance at d/c from ED?: No Referrals: Jeronimo Mccormick DO [Primary Care Provider] - 1-2 days Aleksey Del Angel DO [Doctor of Osteopathic Medicine] - 1-2 days Time of Disposition: 18:30
--- NOTE | 2020-01-02 18:13 | US ---
EXAMINATION TYPE: US venous doppler duplex LE LT DATE OF EXAM: 01/02/2020 5:59 PM COMPARISON: None CLINICAL HISTORY: r/o dvt. Chemotherapy patient with left calf swelling today, tenseness and tingling SIDE PERFORMED: Left TECHNIQUE: The lower extremity deep venous system is examined utilizing real time linear array sonog franklin with graded compression, doppler sonography and color-flow sonography. VESSELS IMAGED: Common Femoral Vein Deep Femoral Vein Greater Saphenous Vein * Femoral Vein Popliteal Vein Small Saphenous Vein * Proximal Calf Veins (* superficial vessels) Left Leg: Negative for DVT. No edema channels are seen left posterior calf at swelling. Incidental f indings of pulsatile venous waveforms are noted bilateral CFV, and left leg veins as assessed. Grayscale, color doppler, spectral doppler imaging performed of the deep veins of the the left lower extremity. There is normal flow, compressibility, vascular waveforms. The last few images left post erior calf show no significant soft tissue swelling or focal fluid collection IMPRESSION: No ultrasound evidence for acute DVT in the left lower extremity.
[2020-01-03 10:21] VITALS: BP 136/92; PULSE 68; RESP 20; TEMP 98.9
== END 2020-01-02 18:48 | disposition home or self-care (01) ==
LOC: EC 16:21
DX: M79.89 Other specified soft tissue disorders (principal); F41.9 Anxiety disorder, unspecified; Z79.899 Other long term (current) drug therapy; Z85.3 Personal history of malignant neoplasm of breast; Z87.891 Personal history of nicotine dependence; Z87.19 Personal history of other diseases of the digestive system; Z85.05 Personal history of malignant neoplasm of liver; Z85.830 Personal history of malignant neoplasm of bone; Z98.890 Other specified postprocedural states; Z90.13 Acquired absence of bilateral breasts and nipples
CPT/HCPCS: 99283

== ENCOUNTER → 2020-03-18 | Outpatient (CLI) | payer MEDICARE ==
[2020-03-18 09:59] LABS: African American GFR (CKD) >90 (>60 ml/min/1.73 sqM); Blood Urea Nitrogen 14 mg/dL (7-17); Non-African American GFR(CKD) >90 (>60 ml/min/1.73 sqM)
--- NOTE | 2020-03-19 16:40 | CT ---
EXAMINATION TYPE: CT ChestAbdPelvis w con DATE OF EXAM: 03/18/2020 INDICATION: Breast CA, Observ. for mets COMPARISON: CT chest 08/15/2019, CT abdomen pelvis 12/03/2019 CT DLP: 665.0 mGycm CONTRAST: Performed with Oral Contrast and with IV Contrast, patient injected with 100 mL of Isovue 300. TECHNIQUE: Axial images at 5 mm thick sections. Reconstructed images in the coronal plane. Delayed images through the kidneys. FINDINGS: CT CHEST: Portion of the thyroid visualized is normal. No suspicious lung nodules or focal infiltrates are present. No enlarged mediastinal or hilar adenopathy is evident. The ascending aorta diameter at the level of the main pulmonary artery is 2.6 cm. The main pulmonary artery diameter at the bifurcation is 2.[address] ABDOMEN: Liver: There is an ill-defined hypodensity within the lateral right lobe liver measuring 1.8 cm. This is smaller than comparison studies 08/15/2019 and 12/03/2019. There are couple of smaller hypodensities present which are also present previously. No enlarging abnormality is evident. Findings can be sugg estive for improving metastasis. Spleen: Normal Pancreas: Normal Adrenal glands: The adrenal glands are normal. Gallbladder: Normal Kidneys: No masses are evident. No hydronephrosis is present. No cysts are present. Delayed images were obtained through the kidneys, which remain unremarkable. Aorta: Normal Inferior vena cava: Normal. CT PELVIS: Loops of bowel within the abdomen and pelvis are normal. There are loops of bowel which are incom pletely distended or lack oral contrast limiting their evaluation. There is some fecal debris within the colon. Appendix: Normal as visualized. Urinary bladder: Normal. Genitourinary structures: Uterus appears normal. Adnexal regions appear within normal limits Osseous structures: There is some sclerosis along the lateral aspect ischio ramus. Series 3 image 1/2 . Sclerotic metastasis should be considered. Sclerosis is within the right pubic symphysis, rig ht femoral neck a few small scattered areas are within the left femoral neck and posterior acetabular column. Medial left iliac wing sclerosis is present lateral sacral ala sclerosis. Small rounded area s are within the sacroiliac joint region on the right. There are additional sclerotic areas within th e posterior sacrum and within the medial iliac wings. There are multiple sclerotic areas within the l umbar vertebral bodies and in the right pedicle and transverse process of L1 sclerotic area along the lateral T12 level. There are multiple scattered sclerotic areas within lower thoracic vertebral bodi es. Some sclerosis along the inferior lateral lower left ribs and anterior mid left ribs. Findings we re present previously IMPRESSIONS: 1. Improving metastatic lesions within the liver. 2. Stable appearance of sclerotic metastasis within the osseous structures. 3. No suspicious changes to suggest new metastatic lesions.
== END | disposition home or self-care (01) ==
LOC: RADCTMAIN 09:13
PROVIDERS: ATTEND Internal Medicine Hematology & Oncology
DX: C78.7 Secondary malignant neoplasm of liver and intrahepatic bile duct (principal); C50.411 Malignant neoplasm of upper-outer quadrant of right female breast
CPT/HCPCS: 82565; 84520; 71260; 74177; 36415; Q9967 ×2

== ENCOUNTER → 2020-04-16 | Outpatient (CLI) | payer MEDICARE ==
[~2020-04-16] MED LIST changes: -DEXAMETHASONE SOD PHOSPHATE 10 MG/ML 1 ML VIAL IV ONE; -ENOXAPARIN 40 MG/0.4 ML SYRINGE SQ ONE; +GOSERELIN ACETATE 10.8 MG IMPLANT SQ NR; -LIDOCAINE 1% 20 ML VIAL (10MG/ML) FOR IV START INTRADERMA PRN; -ONDANSETRON 4 MG/2 ML VIAL IVP ONE; -SCOPOLAMINE 1.5MG/72HR PATCH TRANSDERM ONE; -ceFAZolin IN SWFI 2 GM/20 ML SYRINGE IVP ONE
[2020-04-16 08:42] VITALS: BP 157/101; PULSE 78; RESP 16; TEMP 98
== END | disposition home or self-care (01) ==
LOC: PROCWHC3 08:31
PROVIDERS: ATTEND Internal Medicine Hematology & Oncology
DX: Z51.11 Encounter for antineoplastic chemotherapy (principal); C50.411 Malignant neoplasm of upper-outer quadrant of right female breast
CPT/HCPCS: 96402; J9202

== ENCOUNTER → 2020-08-27 | Outpatient (CLI) | payer MEDICARE, OTHER ==
[2020-08-27 10:36] LABS: African American GFR (CKD) >90 (>60 ml/min/1.73 sqM); Blood Urea Nitrogen 12 mg/dL (7-17); Non-African American GFR(CKD) >90 (>60 ml/min/1.73 sqM)
--- NOTE | 2020-08-27 12:53 | CT ---
EXAMINATION TYPE: CT ChestAbdPelvis w con DATE OF EXAM: 08/27/2020 COMPARISON: 03/18/2020, 08/15/2019, 01/22/2019 HISTORY: 40-year-old female C50.411 Breast CA TECHNIQUE: Contiguous axial scanning of the chest, abdomen, and pelvis performed with IV Contrast, pa tient injected with 100 mL of Isovue 370. Delayed images through the kidneys were obtained. Coronal/s agittal reconstructions performed. CT DLP: 690.9 mGycm Automated exposure control for dose reduction was used. FINDINGS: CHEST: Postreconstructive changes along both breasts. Heart normal size without pericardial effusion. Aorta normal caliber with conventional arch vessel branching anatomy. No thoracic lymphadenopathy by CT size criteria. Redemonstrated right apical pleural parenchymal scarring. No consolidation or pleural effusion. ABDOMEN: Numerous irregular hepatic lesions are demonstrated. These are more numerous and larger than prior ex am. For example: In the right hepatic dome, lesion measures up to 4.5 cm versus 3.1 cm, previously. In the lateral right liver lobe, lesion measures 4.8 cm versus 2.1 cm, previously. 3.6 cm along the right side of the gallbladder fossa versus 9 mm, previously. A probable conglomerate lesion in the medial right hepatic lobe measuring 5.7 cm previously estimated at 2.2 cm. Again, numerous new lesions are also demonstrated throughout both lobes. Portal venous system is patent. No biliary ductal dilatation. Gallbladder, adrenal glands, kidneys, spleen, and pancreas appear within normal limits. Post surgical changes gastrectomy. No dilated small bowel, free fluid, or free air. Some prominent left paraaortic lymph nodes measuring up to 7 mm are unchanged. Otherwise, no mesenter ic or retroperitoneal lymphadenopathy seen. Normal appendix. Oral contrast progressed to the proximal transverse colon. Mild to moderate scattere d stool. No pericolonic inflammatory change. Surgical clips along the anterior abdominal wall suggesting TRAM flap reconstruction. PELVIS: Bladder is urine distended. Uterus anteverted. Both ovaries are visualized. No abnormal fluid collect ion in the pelvis or pelvic lymphadenopathy. BONES: Scattered sclerotic foci within the proximal femurs, pelvis, sacrum, throughout the lower thoracic an d lumbar spine, sternum and a few foci involving the ribs are unchanged. IMPRESSION: 1. DIFFUSE HEPATIC METASTATIC DISEASE. AFTER THE INITIAL IMPROVEMENT BETWEEN THE CT SCANS OF 2/20/202 0 AND 03/18/2020, THERE IS NOW EVIDENCE OF DISEASE PROGRESSION WITH NUMEROUS NEW AND ENLARGING HEPATIC METASTASES THROUGHOUT THE LIVER. A FEW EXTRACTOR OPERATOR HELPER LESIONS ARE DETAILED ABOVE. 2. STABLE APPEARANCE TO THE DIFFUSE OSSEOUS METASTASES. 3. POSTSURGICAL CHANGE OF PREVIOUS TRAM FLAP RECONSTRUCTION.
== END ==
LOC: RADCTMAIN 08:54
PROVIDERS: ATTEND Internal Medicine Hematology & Oncology
DX: C78.7 Secondary malignant neoplasm of liver and intrahepatic bile duct (principal); C50.411 Malignant neoplasm of upper-outer quadrant of right female breast
CPT/HCPCS: 82565; 84520; 71260; 74177; 36415; Q9967 ×2

== ENCOUNTER → 2020-10-05 | Outpatient (CLI) | payer MEDICARE, OTHER ==
--- NOTE | 2020-10-05 11:40 | US ---
EXAMINATION TYPE: US abdomen complete DATE OF EXAM: 10/05/2020 COMPARISON: CT August 27, 2020. CLINICAL HISTORY: R10.11 Rt upper quadrant pain. Stage IV Breast CA since 2016; RUQ x 4 days. EXAM MEASUREMENTS: Liver Length: 17.3 cm Gallbladder Wall: 0.2 cm CBD: 0.3 cm Spleen: 10.0 cm Right Kidney: 12.4 x 6.4 x 4.0 cm Left Kidney: 10.5 x 4.8 x 5.3 cm Pancreas: head seen with mid and tail obscured by bowel gas Liver: heterogeneous appearance with multiple liver lesions (see CT) and too numerous to measure. Gallbladder: wnl Evidence for sonographic Huston's sign: pain at RUQ CBD: wnl Spleen: wnl Right Kidney: No hydronephrosis or masses seen Left Kidney: No hydronephrosis or masses seen Upper IVC: wnl Abd Aorta: wnl Pancreas not well seen on images saved. No AAA. Visualized liver is heterogeneously hyperechoic with multiple hypoechoic masses of varying size and shape system with known metastatic disease. No extrahe patic biliary dilatation. Gallbladder is seen without shadowing mobile gallstones. Both kidneys seen without hydronephrosis. Spleen remains normal in size. IMPRESSION: Marked fatty infiltration of liver with known hepatic metastatic disease is redemonstrate d. No acute findings are seen.
== END | disposition home or self-care (01) ==
LOC: RADUSWWP 10:22
PROVIDERS: ATTEND Internal Medicine Hematology & Oncology
DX: C78.7 Secondary malignant neoplasm of liver and intrahepatic bile duct (principal); C50.919 Malignant neoplasm of unspecified site of unspecified female breast
CPT/HCPCS: 76700

== ENCOUNTER → 2021-01-05 | Outpatient (CLI) | payer MEDICARE, OTHER ==
[2021-01-05 11:42] LABS: African American GFR (CKD) >90 (>60 ml/min/1.73 sqM); Blood Urea Nitrogen 13 mg/dL (7-17); Non-African American GFR(CKD) >90 (>60 ml/min/1.73 sqM)
--- NOTE | 2021-01-05 14:15 | CT ---
EXAMINATION TYPE: CT ChestAbdPelvis w con DATE OF EXAM: 01/05/2021 COMPARISON: Prior CT 08/27/2020 HISTORY: C50.[address] DLP: 623.3 mGycm Automated exposure control for dose reduction was used. CONTRAST: CT scan of the chest, abdomen and pelvis is performed with Oral Contrast and with IV Contrast, patien t injected with 100 mL of Isovue 300. FINDINGS: LUNGS: The lungs are grossly clear, there is no concerning parenchymal mass or nodule identified. T here is no pleural effusion or pneumothorax seen. The tracheobronchial tree is patent. Apical pleura l thickening is again seen on the right MEDIASTINUM: There are no greater than 1 cm hilar or mediastinal lymph nodes. No pericardial effusi on is seen. AORTA: No significant abnormality is seen. OTHER: No additional significant abnormality is seen. LIVER/GB: Liver masses are somewhat less well delineated on the current exam however towards the dome there is an index lesion which measures 3.4 cm on today's exam and measures approximately 2.6 on anant or greatest dimension with central low density, raising enhancement, and additional similar lesion in the margin of the left lobe of the liver, axial image 65 measures 3.9 cm and measured approximately 3.6 cm on prior although there are differences in plane of section. PANCREAS: No significant abnormality is seen. SPLEEN: No significant abnormality is seen. ADRENALS: No significant abnormality is seen. KIDNEYS: No significant abnormality is seen. REPRODUCTIVE ORGANS: No gross abnormality seen. BOWEL: Multiple sclerotic foci within the visualized skeleton are again seen. FREE AIR: No Free Air visible. ASCITES: None seen. RETROPERITONEAL ADENOPATHY: No retroperitoneal adenopathy is seen. LYMPH NODES: No greater than 1 cm abdominal or pelvic lymph nodes are appreciated. URINARY BLADDER: No significant abnormality is seen. PELVIC ADENOPATHY: None visualized. OSSEOUS STRUCTURES: No significant abnormality is seen. IMPRESSION: Lesions within the liver are somewhat less well defined as compared to prior exam althoug h 2 lesions have shown some minimal interval increase in size as described
== END | disposition home or self-care (01) ==
LOC: RADCTMAIN 11:09
PROVIDERS: ATTEND Internal Medicine Hematology & Oncology
DX: C50.411 Malignant neoplasm of upper-outer quadrant of right female breast (principal); K76.9 Liver disease, unspecified
CPT/HCPCS: 82565; 84520; 71260; 74177; 36415; Q9967 ×2

== ENCOUNTER → 2021-05-17 | Outpatient (CLI) | payer MEDICARE ==
[2021-05-17 13:41] LABS: African American GFR (CKD) >90 (>60 ml/min/1.73 sqM); Blood Urea Nitrogen 10 mg/dL (7-17); Non-African American GFR(CKD) >90 (>60 ml/min/1.73 sqM)
--- NOTE | 2021-05-17 15:44 | CT ---
EXAMINATION TYPE: CT ChestAbdPelvis w con DATE OF EXAM: 05/17/2021 COMPARISON: Most recent CT January 05, 2021 and older studies HISTORY: Breast cancer. CT DLP: 1453 mGycm. Automated Exposure Control for Dose Reduction was Utilized. CONTRAST: CT scan of the thorax, abdomen and pelvis is performed with oral and with IV Contrast, patient inject ed with 100 mL of Isovue M300. FINDINGS: LUNGS: Focal anterior right upper lung linear scarring redemonstrated. No new suspicious greater olga n 5 mm pulmonary nodules or masses. There is no pleural effusion or pneumothorax seen. The tracheobr onchial tree is patent. MEDIASTINUM: There are no new greater than 1 cm hilar or mediastinal lymph nodes. No pericardial ef fusion is seen. OTHER: Surgical clips and dystrophic calcifications in the deep aspect of the bilateral breasts redem onstrated. LIVER/GB: The liver is overall heterogeneous with innumerable ill-defined masses becoming more conflu ent in appearance, findings are consistent with progressive metastatic disease and comparing last sev eral CT studies. Prominent right hepatic lobe is redemonstrated. PANCREAS: No significant abnormality is seen. SPLEEN: No significant abnormality is seen. ADRENALS: No significant abnormality is seen. KIDNEYS: No significant abnormality is seen. BOWEL: Oral contrast does not reach colonic level making evaluation of bowel slightly suboptimal. No suspicious small or large bowel dilatation. GENITAL ORGANS: Anteverted uterus. Stable slight asymmetric prominence right ovary axial image 106 LYMPH NODES: No greater than 1cm abdominal or pelvic lymph nodes are appreciated. OSSEOUS STRUCTURES: Scattered sclerotic osseous metastatic disease redemonstrated involving pelvis an d entire spine along with left-sided ribs and left superior sternum. No significant change from most recent CTs OTHER: Coils from ventral wall hernia repair surgery in the anterior wall of the lower abdomen and pe lvis are redemonstrated. IMPRESSION: Continued hepatic metastatic disease progression as diffuse liver involvement from new wh en increasing size of lesions is now thought present when comparing last several CTs. Stable osseous sclerotic metastatic disease.
== END | disposition home or self-care (01) ==
LOC: RADCTMAIN 13:05
PROVIDERS: ATTEND Internal Medicine Hematology & Oncology
DX: C50.411 Malignant neoplasm of upper-outer quadrant of right female breast (principal); C79.51 Secondary malignant neoplasm of bone; C78.7 Secondary malignant neoplasm of liver and intrahepatic bile duct
CPT/HCPCS: 82565; 84520; 71260; 74177; 36415; Q9967 ×2

== ENCOUNTER 2021-07-26 12:48 | Emergency (ER) | payer MEDICARE ==
[2021-07-26 12:53] VITALS: TEMP 98.8
[2021-07-26] MEDS ORDERED: HYDROmorphone 1 MG/ML 1 ML SYRINGE IM STA (13:22)
--- NOTE | 2021-07-26 14:02 | ED ---
General Adult HPI - General Chief complaint: Recheck/Abnormal Lab/Rx Stated complaint: LEFT LOWER RIB PAIN Time Seen by Provider: 07/26/21 12:50 Source: patient Mode of arrival: wheelchair Limitations: no limitations - History of Present Illness Initial comments: 41-year-old female presents to the emergency department with reported left-sided chest wall pain. States that her symptoms started last night after she was "horsing around in her kitchen". States that her friend squeezed her, picked her up and swung her around. She woke up this morning with left-sided chest wall pain which is reproducible upon movement and palpation. Denies shortness of breath. No abdominal pain. No changes in her bowel or bladder habits. Denies any fevers. She does have a prescription for Laporte and is in a pain contract. States that she did not take any medications at home for her symptoms. Patient currently under chemotherapy for breast cancer. No other alleviating, precipitating or modifying factors - Related Data Home Medications Medication Instructions Recorded Confirmed ALPRAZolam [Xanax] 1 mg PO TID PRN 02/08/19 07/26/21 Hydrocodone/Acetaminophen [[place] 1 tab PO Q4H PRN 02/08/19 07/26/21 7.5-325] Capecitabine [Xeloda] 1,500 mg PO BID 07/26/21 07/26/21 Magnesium 200 mg PO DAILY 07/26/21 07/26/21 Vitamin B Complex 1 cap PO DAILY 07/26/21 07/26/21 Previous Rx's Medication Instructions Recorded Lidocaine [Lidoderm 5% Patch] 1 patch TRANSDERM DAILY #30 patch 07/26/21 Allergies Allergy/AdvReac Type Severity Reaction Status Date / Time No Known Allergies Allergy Verified 07/26/21 15:42 Review of Systems ROS Statement: Those systems with pertinent positive or pertinent negative responses have been documented in the HPI. ROS Other: All systems not noted in ROS Statement are negative. Past Medical History Past Medical History: Cancer Additional Past Medical History / Comment(s): plueral effusion, R breast cancer, liver and lower spine cancer. PANCREATITIS. History of Any Multi-Drug Resistant Organisms: None Reported Past Surgical History: Bariatric Surgery, Breast Surgery Additional Past Surgical History / Comment(s): double mastecomy, R ankle surg, carpel tunnel adrián Past Anesthesia/Blood Transfusion Reactions: No Reported Reaction Past Psychological History: Anxiety Smoking Status: Former smoker Past Alcohol Use History: None Reported Past Drug Use History: None Reported - Past Family History Mother Family Medical History: No Reported History General Exam Limitations: no limitations Course Vital Signs 07/26/21 07/26/21 12:49 15:59 Temperature 98.8 F Pulse Rate 89 77 Respiratory 18 20 Rate Blood Pressure 131/84 132/80 O2 Sat by Pulse 98 99 Oximetry Medical Decision Making - Medical Decision Making Upon arrival patient was placed in room 28. Thorough history and physical exam was performed. Patient is given 1 IM milligram of Dilaudid. Chest x-rays performed with a left rib series which demonstrates rib fractures of 8, 9 and 10. They do appear to be in healing stages. These results are discussed the patient. She has no abdominal pain. Patient does have improvement in her pain with the medication administration. She does have additional metastatic disease aware on her x-ray which she is aware of. Patient is in a pain contract. She will be discharged home and instructed to take Laporte alternating with Motrin for pain control. She is given an incentive spirometer and a Lidoderm patch. Lidoderm patches were called the pharmacy. Patient admits is to follow-up with her primary care doctor in 2-4 days. Return for any new or worsening symptoms per patient discharged in stable condition Disposition Clinical Impression: Chest wall pain, Ribs, multiple fractures Disposition: HOME SELF-CARE Condition: Stable Instructions (If sedation given, give patient instructions): Rib Fracture (ED) Additional Instructions: Please follow-up with your primary care doctor in 2-4 days. Return to the emergency room for any new or worsening symptoms Prescriptions: Lidocaine [Lidoderm 5% Patch] 1 patch TRANSDERM DAILY #30 patch Is patient prescribed a controlled substance at d/c from ED?: No Referrals: Jeronimo Mccormick DO [Primary Care Provider] - 1-2 days Time of Disposition: 15:57
--- NOTE | 2021-07-26 14:22 | XR ---
Chest x-ray with left RIBS HISTORY: Chest pain Frontal view of the chest, 4 views of the left ribs Correlation to prior chest x-ray 03/14/2017, CT 05/17/2021 Sclerotic bone consistent with metastatic disease has been described in prior reports. Postop changes are noted to the left breast. Periosteal new bone formation, fractures are present at the 8th, ninth and tenth ribs anterior laterally on the left consistent with remote fractures and healing. Surgical hiram are present within the pelvis. There is no pneumothorax or pleural effusion. Cardiomediastinal silhouette is within normal limits. IMPRESSION: Healing fractures, metastatic disease.
[2021-07-26] MEDS ORDERED: LIDOCAINE 5% PATCH TOPICAL STA (15:54)
[2021-07-26 16:01] VITALS: BP 132/80; PULSE 77; RESP 20
== END 2021-07-26 16:28 | disposition home or self-care (01) ==
LOC: EC 12:48
DX: S22.42XA Multiple fractures of ribs, left side, initial encounter for closed fracture (principal); F41.9 Anxiety disorder, unspecified; Z85.3 Personal history of malignant neoplasm of breast; Z98.84 Bariatric surgery status; Z87.891 Personal history of nicotine dependence; W50.0XXA Accidental hit or strike by another person, initial encounter
CPT/HCPCS: 99284; 96372; 71101; J1170

== ENCOUNTER → 2021-08-27 | Outpatient (CLI) | payer MEDICARE ==
[2021-08-27 11:05] LABS: African American GFR (CKD) >90 (>60 ml/min/1.73 sqM); Blood Urea Nitrogen 16 mg/dL (7-17); Non-African American GFR(CKD) >90 (>60 ml/min/1.73 sqM)
--- NOTE | 2021-08-27 15:16 | NM ---
EXAMINATION TYPE: NM bone scan whole body DATE OF EXAM: 08/27/2021 COMPARISON: CT same date HISTORY: C 50.411 Delayed whole-body scanning was performed following the injection of 22.2 mCi Tc 99m MDP. Images acq uired 3 hours post injection. FINDINGS: There is abnormal uptake within the sacrum, proximal left femur, lumbar spine, thoracic spine, sternu m. Many of the abnormal areas of density in the skeleton to include the upper sternum, bilateral scap ricky, right femoral neck, ribs and pelvis do not show associated uptake on bone scan. The sternoclavicular joints, knees, ankles and feet, shoulders show probable degenerative uptake. Sof t tissue uptake is normal. Uptake along the lower left ribs show associated fractures. IMPRESSION: Findings consistent with metastatic disease. Multiple areas of sclerosis within the skeleton do not s how associated uptake on bone scan however.
== END | disposition home or self-care (01) ==
LOC: RADNMMAIN 10:08
PROVIDERS: ATTEND Internal Medicine Hematology & Oncology
DX: C50.411 Malignant neoplasm of upper-outer quadrant of right female breast (principal); C79.51 Secondary malignant neoplasm of bone
CPT/HCPCS: 82565; 84520; 78306; 36415; A9503

== ENCOUNTER → 2021-08-27 | Outpatient (CLI) | payer MEDICARE ==
--- NOTE | 2021-08-27 13:38 | CT ---
EXAMINATION TYPE: CT ChestAbdPelvis w con DATE OF EXAM: 08/27/2021 COMPARISON: CT dated 05/17/2021 HISTORY: Breast cancer CT DLP: 597.3 mGycm Automated exposure control for dose reduction was used. CONTRAST: CT scan of the chest, abdomen and pelvis is performed with Oral Contrast and with IV Contrast, patien t injected with 100 mL of Isovue M300. FINDINGS: LUNGS: Slightly prominent soft tissue thickening between the axillary portions of the right first and second ribs measuring 10 x 14 mm compared to 10 x 11mm previously. Enlarging metastasis cannot be ex cluded. Unremarkable lungs otherwise. Patent central airways. No pleural effusion. MEDIASTINUM: There are no greater than 1 cm hilar or mediastinal lymph nodes. No cardiomegaly. No pe ricardial effusion is seen. OTHER: Unchanged breasts. Redemonstration of the previously described sclerotic osseous metastasis, not significantly changed. Healing fractures of the axillary portions of the left eighth, ninth and 1 0th ribs. LIVER/GB: Innumerable multiple variable sized hepatic metastasis. Most of them are ill-defined and di fficult to precisely measure. The largest is seen in the right lobe measuring 4.4 x 5.3 cm compared t o 5 x 6.3 cm previously. The remainder of the hepatic metastasis are grossly unchanged with no defini te new metastasis is identified yet difficult to exclude. Contracted gallbladder. PANCREAS: No significant abnormality is seen. SPLEEN: Bulky without definite lesion. ADRENALS: No significant abnormality is seen. KIDNEYS: No significant abnormality is seen. BOWEL: Previous gastric surgery, stable. No small bowel obstruction. Nonspecific wall thickening of the colon. Normal appendix. REPRODUCTIVE ORGANS: No gross uterine or adnexal mass. LYMPH NODES: No greater than 1 cm abdominal or pelvic lymph nodes are appreciated. OSSEOUS STRUCTURES: Scattered osseous sclerotic metastasis, grossly stable. Please correlate with bon e scan results. OTHER: No sizable ascites. IMPRESSION: 1. Minimal interval increase in the size of the soft tissue thickening between the right first and se cond ribs as described above, attention on follow-up. Further PET scan assessment can be considered. 2. Innumerable hepatic metastatic lesions with the largest is slightly smaller compared to the previo us CT scan. The remainder of the hepatic lesions are grossly stable. No definite new hepatic lesion i dentified. 3. Grossly stable sclerotic osseous lesions, please correlate with bone scan results. No other defini te metastatic disease seen in the chest, abdomen or the pelvis. Incidental findings as described abov e.
== END | disposition home or self-care (01) ==
LOC: RADCTMAIN 10:46
PROVIDERS: ATTEND Internal Medicine Hematology & Oncology
DX: C50.411 Malignant neoplasm of upper-outer quadrant of right female breast (principal); C78.7 Secondary malignant neoplasm of liver and intrahepatic bile duct
CPT/HCPCS: 71260; 74177; Q9967

== ENCOUNTER → 2021-10-18 | Outpatient (CLI) | payer MEDICARE ==
[~2021-10-18] MED LIST changes: -GOSERELIN ACETATE 10.8 MG IMPLANT SQ NR; +LEUPROLIDE ACET 11.25MG SYRGKIT IM NR
[2021-10-18 14:27] VITALS: BP 126/80; PULSE 75; RESP 16; TEMP 98.6
== END | disposition home or self-care (01) ==
LOC: PROCWHC3 14:23
PROVIDERS: ATTEND Internal Medicine Hematology & Oncology
DX: C50.411 Malignant neoplasm of upper-outer quadrant of right female breast (principal)
CPT/HCPCS: 96402; J1950

== ENCOUNTER → 2022-01-04 | Outpatient (CLI) | payer MEDICARE ==
[2022-01-04 10:32] LABS: African American GFR (CKD) >90 (>60 ml/min/1.73 sqM); Blood Urea Nitrogen 15 mg/dL (7-17); Non-African American GFR(CKD) >90 (>60 ml/min/1.73 sqM)
--- NOTE | 2022-01-04 12:19 | CT ---
EXAMINATION TYPE: CT ChestAbdPelvis w con CT DLP: 643.70 mGycm, Automated exposure control for dose reduction was used. DATE OF EXAM: 01/04/2022 11:35 AM COMPARISON: Multiple examinations most recent CT chest abdomen pelvis 12/27/2021. CLINICAL INDICATION:Female, 41 years old with history of C50.411, Breast cancer Technique: Multiple axial images of the chest, abdomen, and pelvis were obtained following the intrav enous administration of 70 mL Isovue-300. Two-dimensional coronal and sagittal reconstructions were o btained. Findings: CHEST: LUNGS/ PLEURA: Enlarging left lower lobe pulmonary nodule now measuring 12 mm, previously 9 mm. No ev idence of focal consolidation, pneumothorax or pleural effusion. AIRWAY: Patent and unremarkable.. HEART: Size within normal limits. . MEDIASTINUM: No gross evidence of adenopathy. VASCULATURE: No aortic aneurysm. SOFT TISSUES/LYMPH NODES: Postsurgical clips are seen along the along the chest wall anteriorly and a nterolaterally. LOWER NECK: No significant findings. MUSCULOSKELETAL: Scattered osseous metastatic disease which are sclerotic including the manubrium on the left, left rib 6, 7, 8 with healing pathologic fracture of left rib #9, right rib #6. ABDOMEN: ABDOMEN LIVER: Redemonstration of heterogenous appearance of the liver with multiple peripherally enhancing m etastatic lesions overall evaluation for size is slightly limited given CT technique. The lesion od nant lesion measured on prior and again measures up to 5.3 x 3.7 cm with some capsular retraction. Th ere is an atrophic left hepatic lobe likely secondary to left portal vein occlusion. A left inferior hepatic lesion measures 2.7 on today's exam and is felt to have been smaller on prior measuring 2.2 c m. GALLBLADDER AND BILE DUCTS: Unremarkable. PANCREAS: Unremarkable. SPLEEN: Unremarkable. ADRENAL GLANDS: Unremarkable. KIDNEYS AND URETERS: No evidence of hydronephrosis or renal calculus. The ureters are unremarkable. PELVIS BLADDER: Unremarkable REPRODUCTIVE: Unremarkable. ABDOMEN & PELVIS STOMACH AND BOWEL: Postsurgical changes to the gastric lumen. No evidence of bowel obstruction. PERITONEUM: No evidence of pneumoperitoneum or free fluid. MUSCULOSKELETAL: Scattered osseous metastatic disease including multiple lesions throughout the pelvi s and right femur, the bilateral scapula and throughout the spine. VASCULATURE: No evidence of aortic aneurysm. 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 LYMPH NODES: No gross evidence for lymphadenopathy. SOFT TISSUE/ABDOMINAL WALL: Surgical clips along the anterior abdominal wall. IMPRESSION: 1. Interval enlargement of left lower lobe pulmonary nodule now measuring up to 12 mm along with mul tiple osseous metastatic sclerotic lesions and hepatic metastatic disease. Comparison of hepatic lesi ons is suboptimal given technique however overall is felt that at least some of the hepatic lesions m ay be larger in size. Consider nuclear medicine CT/PET and/or follow-ups for hepatic metastases with MRI. 2. 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
== END | disposition home or self-care (01) ==
LOC: RADCTMAIN 09:28
PROVIDERS: ATTEND Internal Medicine Hematology & Oncology
DX: C50.411 Malignant neoplasm of upper-outer quadrant of right female breast (principal); K76.89 Other specified diseases of liver
CPT/HCPCS: 82565; 84520; 71260; 74177; 36415; Q9967 ×2

== ENCOUNTER → 2022-01-18 | Outpatient (CLI) | payer MEDICARE ==
[2022-01-18 09:39] VITALS: BP 145/99; PULSE 79; RESP 14; TEMP 98.3
== END ==
LOC: PROCWHC3 09:31
PROVIDERS: ATTEND Internal Medicine Hematology & Oncology
DX: C50.411 Malignant neoplasm of upper-outer quadrant of right female breast (principal); Z87.891 Personal history of nicotine dependence
CPT/HCPCS: 96372; J1950

== ENCOUNTER → 2022-04-27 | Outpatient (CLI) | payer MEDICARE | LOC: PROCWHC3 09:23 | PROVIDERS: ATTEND Internal Medicine Hematology & Oncology | DX: C50.411 Malignant neoplasm of upper-outer quadrant of right female breast (principal); Z87.891 Personal history of nicotine dependence ==

== ENCOUNTER → 2022-05-06 | Outpatient (CLI) | payer MEDICARE ==
[2022-05-06 10:13] LABS: African American GFR (CKD) >90 (>60 ml/min/1.73 sqM); Blood Urea Nitrogen 6 mg/dL (7-17); Non-African American GFR(CKD) >90 (>60 ml/min/1.73 sqM)
--- NOTE | 2022-05-06 13:55 | CT ---
EXAMINATION TYPE: CT ChestAbdPelvis w con DATE OF EXAM: 05/06/2022 INDICATION: Malignant neoplasm of upper outer quadrant right breast COMPARISON: 01/04/2022 CT DLP: 514.5 mGycm CONTRAST: Performed with Oral Contrast and with IV Contrast, patient injected with 70 mL of Isovue 300. TECHNIQUE: Axial images at 5 mm thick sections. Reconstructed images in the coronal plane. Delayed images through the kidneys. FINDINGS: CT CHEST: Portion of the thyroid visualized is normal. There is some mild thickening along the right anterior lung apex. Series 4 image 11. No enlarged mediastinal or hilar adenopathy is evident. The ascending aorta diameter at the level of the main pulmonary artery is 2.6 cm. The main pulmonary artery diameter at the bifurcation is 2.[address] ABDOMEN: Liver: Liver appears heterogenous. Largest hypodensity which has some linear enhancement is 3.1 cm. A previous 2.8 cm area on the mid right lobe liver appears smaller 1.4 cm. There are multiple addition al areas size ill-defined hypodensities. Findings are suspicious for metastatic disease. Enlarging ab normality is not identified. Spleen: Largest Pancreas: Normal Adrenal glands: The adrenal glands are normal. Gallbladder: Gallbladder appears small but similar comparison Kidneys: No masses are evident. No hydronephrosis is present. No cysts are present. Delayed images were obtained through the kidneys, which remain unremarkable. Aorta: Normal Inferior vena cava: Normal. CT PELVIS: Loops of bowel within the abdomen and pelvis are normal. There are loops of bowel which are incom pletely distended or lack oral contrast limiting their evaluation. Appendix: Normal as visualized. Urinary bladder: Normal. Genitourinary structures: Uterus appears unremarkable. Follicles appear to be in the bilateral ovarie s. Osseous structures: Multiple sclerotic lesions are scattered through the lumbar and thoracic vertebra l bodies. There are sclerotic lesions within the pelvis and right hip. Findings could be compatible m etastatic disease. IMPRESSIONS: 1. Heterogenous appearance to the liver. Findings can be compatible with multiple metastatic lesions. Enlarging lesions are not identified. 2. Multiple sclerotic metastasis to the axial and appendicular skeleton.
== END | disposition home or self-care (01) ==
LOC: RADCTMAIN 09:38
PROVIDERS: ATTEND Internal Medicine Hematology & Oncology
DX: C79.51 Secondary malignant neoplasm of bone (principal); C50.411 Malignant neoplasm of upper-outer quadrant of right female breast
CPT/HCPCS: 82565; 84520; 71260; 74177; 36415; Q9967 ×2

== ENCOUNTER → 2022-07-13 | Outpatient (CLI) | payer MEDICARE ==
[2022-07-13 15:07] LABS: African American GFR (CKD) >90 (>60 ml/min/1.73 sqM); Blood Urea Nitrogen 8 mg/dL (7-17); Non-African American GFR(CKD) >90 (>60 ml/min/1.73 sqM)
--- NOTE | 2022-07-13 15:51 | CT ---
EXAMINATION TYPE: CT angio chest DATE OF EXAM: 07/13/2022 COMPARISON: 05/06/2022 HISTORY: 42-year-old female R07.9, R06.02, shortness of breath, dyspnea TECHNIQUE: Contiguous axial scanning of the chest performed with IV Contrast, patient injected with 1 00ml mL of Isovue 370. Coronal/sagittal MIP reconstructions performed. CT DLP: 377 mGycm Automated exposure control for dose reduction was used. FINDINGS: Heart normal size without pericardial effusion. No flattening of the interventricular septum or reflu x of contrast into the hepatic veins. Aorta normal caliber with a convexity arch vessel branching anatomy. No thoracic lymphadenopathy by CT size criteria. There is satisfactory opacification of the pulmonary artery system without evidence for pulmonary emb olus. Redemonstrated right apical pleural parenchymal scarring. Mild diffuse bronchial wall thickening may reflect bronchitis or asthma. Strandy atelectasis and scarring in the lower lungs. No consolidation o r pleural effusion seen. Post surgical changes of sleeve gastrectomy. Spleen enlarged at 14.8 cm. Multiple underlying liver le sions are suggested but poorly characterized on this early arterial phase scan. Neither underlying ci rrhosis or pseudocirrhosis. Mild perihepatic ascites is present. Similar large focus of 2.1 cm calcif ication just above the pancreatic tail. Bones: Scattered sclerotic lesions throughout the thoracic spine and left sternal manubrium and invol ving the inferior right scapula and spine of the left scapula. IMPRESSION: 1. NO EVIDENCE FOR PULMONARY EMBOLUS. 2. Similar right apical pleural-parenchymal scarring. No acute pulmonary process. 3. Query pseudocirrhosis of the liver from underlying metastatic disease. Mild perihepatic ascites armstrong s increased from 05/06/2022. Splenomegaly at 14.8 cm is unchanged. 4. Known sclerotic osseous metastatic disease.
== END | disposition home or self-care (01) ==
LOC: RADCTMAIN 14:34
PROVIDERS: ATTEND Internal Medicine Hematology & Oncology
DX: C79.51 Secondary malignant neoplasm of bone (principal); C80.1 Malignant (primary) neoplasm, unspecified; J94.8 Other specified pleural conditions; R16.1 Splenomegaly, not elsewhere classified; R18.8 Other ascites
CPT/HCPCS: 82565; 84520; 71275; 36415; Q9967

== ENCOUNTER 2022-10-28 08:15 | Observation (INO) | payer MEDICARE ==
[2022-10-28] MEDS ORDERED: SODIUM CHLORIDE 0.9% 1,000 ML IV STA (08:32)
[2022-10-28] MEDS ORDERED: KETOROLAC 15 MG/ML 1 ML VIAL IVP STA (08:32)
[2022-10-28] MEDS ORDERED: METOCLOPRAMIDE 5 MG/ML 2 ML VIAL IVP STA (08:34)
[2022-10-28] MEDS ORDERED: MORPHINE SULFATE 4 MG/ML SYRINGE IVP STA (08:34)
--- NOTE | 2022-10-28 08:40 | ED ---
Abdominal Pain HPI - General Chief Complaint: Abdominal Pain Stated Complaint: Abd Pain Time Seen by Provider: 10/28/22 08:25 Source: patient, RN notes reviewed Mode of arrival: ambulatory Limitations: no limitations - History of Present Illness Initial Comments: This is a 42-year-old female who presents to the emergency department for nausea, vomiting, and abdominal pain. States that she is having problems with constipation over the last 5 days, however she did have a bowel movement yesterday. She had been taking MiraLAX and Dulcolax. This morning she started to develop severe mid to lower abdominal pain with nausea and vomiting. States that she is primarily throwing up bile. She has a history of pancreatitis, but states that this feels somewhat different. She is being treated for metastatic breast cancer. She had chemotherapy 2 days ago. However, she gets chemotherapy every 3 weeks and has had multiple treatments prior to this without similar symptoms occurring afterwards. Denies any fevers. Denies any fevers, chills, sore throat, cough, dyspnea, chest pain, palpitations, diarrhea, back pain, or headaches. MD Complaint: abdominal pain - Related Data Home Medications Medication Instructions Recorded Confirmed ALPRAZolam [Xanax] 1 mg PO HS 02/08/19 10/28/22 Hydrocodone/Acetaminophen [[place] 1 tab PO Q4H PRN 02/08/19 10/28/22 7.5-325] Enhertu 1 dose IV Q21D 10/28/22 10/28/22 Allergies Allergy/AdvReac Type Severity Reaction Status Date / Time No Known Allergies Allergy Verified 10/28/22 11:11 Review of Systems ROS Statement: Those systems with pertinent positive or pertinent negative responses have been documented in the HPI. ROS Other: All systems not noted in ROS Statement are negative. Past Medical History Past Medical History: Cancer Additional Past Medical History / Comment(s): plueral effusion, R breast cancer, liver and lower spine cancer. PANCREATITIS. History of Any Multi-Drug Resistant Organisms: None Reported Past Surgical History: Bariatric Surgery, Breast Surgery Additional Past Surgical History / Comment(s): double mastecomy, R ankle surg, carpel tunnel adrián Past Anesthesia/Blood Transfusion Reactions: No Reported Reaction Past Psychological History: Anxiety Smoking Status: Former smoker Past Alcohol Use History: Occasional Past Drug Use History: None Reported - Past Family History Mother Family Medical History: No Reported History General Exam Limitations: no limitations General appearance: alert, in no apparent distress Head exam: Present: atraumatic, normocephalic, normal inspection Respiratory exam: Present: normal lung sounds bilaterally. Absent: respiratory distress, wheezes, rales, rhonchi, stridor Cardiovascular Exam: Present: regular rate, normal rhythm, normal heart sounds. Absent: systolic murmur, diastolic murmur, rubs, gallop, clicks GI/Abdominal exam: Present: soft, tenderness (mid to lower abdomen), normal bowel sounds. Absent: distended, guarding, rebound, rigid Neurological exam: Present: alert, oriented X3, CN II-XII intact Psychiatric exam: Present: normal affect, normal mood Skin exam: Present: warm, dry, intact, normal color. Absent: rash Course Vital Signs 10/28/22 08:22 Temperature 97.9 F Pulse Rate 80 Respiratory 22 Rate Blood Pressure 124/73 O2 Sat by Pulse 99 Oximetry Medical Decision Making - Medical Decision Making This is a 42-year-old female who presents to the emergency department for abdominal pain, nausea, and vomiting. Was pt. sent in by a medical professional or institution? @ -No Did you speak to anyone other than the patient for history? @ -Her parents Did you review nursing and triage notes? @ -Yes, and I agree, it is accurate with regards to the patient's symptoms. Were old charts reviewed? @ -No Differential Diagnosis? @ -Differential Abdominal Pain Women: Appendicitis, Cholecystitis, diverticulosis, ischemic bowel, pancreatitis, hepatitis, UTI, gastroenteritis, AAA, incarcerated hernia, bowel obstruction, constipation, inflammatory bowel, hepatitis, peptic ulcer disease, splenic infarction, perforated viscus, vulvitis, ovarian torsion, PID, kidney stone, placenta abruption, this is not meant to be an all-inclusive list CT interpreted by me (1pt min.)? @ -Computed tomography scan of the abdomen and pelvis obtained. My interpretation identifies dilation of the proximal colon. I do not identify any signs of free air or ureteral calculus. What testing was considered but not performed? (CT, X-rays, U/S, labs)? Why? @ -None What meds were considered but not given? Why? @ -None Did you discuss the management of the patient with other professionals? @ -Yes, Dr. Schneider, who accepts the patient for admission. Did you reconcile home meds? @ -No Was smoking cessation discussed for >3mins.? @ -No Was critical care preformed (if so, how long)? @ -No Were there social determinants of health that impacted care today? How? (Homelessness, low income, unemployed, alcoholism, drug addiction, transportation, low edu. Level, literacy, decrease access to med. care, fci, rehab)? @ -No Was there de-escalation of care discussed even if they declined? (Discuss DNR or withdrawal of care, Hospice)? @ -No What co-morbidities impacted this encounter? (DM, HTN, Smoking, COPD, CAD, Cance r, CVA, Hep., AIDS, mental health diagnosis, sleep apnea, morbid obesity)? @ -Breast cancer Was patient admitted / discharged? @ -Admitted. Lab work obtained revealing multiple irregularities, however these findings are stable when compared with prior values. Liver enzymes are actually improved and the patient does have known liver metastasis currently being treated with chemotherapy. Computed tomography scan of the abdomen and pelvis obtained. Findings consistent with disease progression and developing large bowel obstruction. Pain and nausea were controlled with Toradol, Dilaudid, and Reglan in the emergency department. Given the disease progression and developing large bowel obstruction, patient admitted to medicine with [facility] surgery and hematology/oncology consult. Undiagnosed new problem with uncertain prognosis? @ -None Drug Therapy requiring intensive monitoring for toxicity (Heparin, Nitro, Insulin, Cardizem)? @ -None Were any procedures done? @ -None Diagnosis/symptom? @ -Metastatic breast cancer Acute, or Chronic, or Acute on Chronic? @ -Chronic Uncomplicated (without systemic symptoms) or Complicated (systemic symptoms)? @ -Complicated Side effects of treatment? @ -None Exacerbation, Progression, or Severe Exacerbation] @ -Progression Poses a threat to life or bodily function? @ -Yes Diagnosis/symptom? @ -Developing large bowel obstruction Acute, or Chronic, or Acute on Chronic? @ -Acute Uncomplicated (without systemic symptoms) or Complicated (systemic symptoms)? @ -Complicated Side effects of treatment? @ -None Exacerbation, Progression, or Severe Exacerbation] @ -Not applicable Poses a threat to life or bodily function? @ -Yes This case was discussed in detail with the attending ED physician, Dr. Collins. Presentation, findings, and treatment plan discussed in detail as well. - Lab Data Result diagrams: 10/28/22 08:45 10/28/22 08:45 Lab Results 10/28/22 10/28/22 10/28/22 Range/Units 08:45 08:45 08:45 WBC 3.4 L (3.8-10.6) k/uL RBC 3.30 L (3.80-5.40) m/uL Hgb 12.2 (11.4-16.0) gm/dL Hct 37.9 (34.0-46.0) % MCV 114.9 H (80.0-100.0) fL MCH 36.9 H (25.0-35.0) pg MCHC 32.2 (31.0-37.0) g/dL RDW 15.1 (11.5-15.5) % Plt Count 131 L (150-450) k/uL MPV 8.5 Neutrophils % 75 % Lymphocytes % 18 % Monocytes % 4 % Eosinophils % 1 % Basophils % 0 % Neutrophils # 2.5 (1.3-7.7) k/uL Lymphocytes # 0.6 L (1.0-4.8) k/uL Monocytes # 0.2 (0-1.0) k/uL Eosinophils # 0.0 (0-0.7) k/uL Basophils # 0.0 (0-0.2) k/uL Manual Slide Review Performed Large Platelets Present Macrocytosis Marked A Tear Drop Cells Present Sodium 141 (137-145) mmol/L Potassium 3.6 (3.5-5.1) mmol/L Chloride 104 (98-107) mmol/L Carbon Dioxide 31 H (22-30) mmol/L Anion Gap 6 mmol/L BUN 10 (7-17) mg/dL Creatinine 0.51 L (0.52-1.04) mg/dL Est GFR (CKD-EPI)AfAm >90 (>60 ml/min/1.73 sqM) Est GFR (CKD-EPI)NonAf >90 (>60 ml/min/1.73 sqM) Glucose 104 H (74-99) mg/dL Plasma Lactic Acid Sarmad (0.7-2.0) mmol/L Calcium 8.7 (8.4-10.2) mg/dL Total Bilirubin 1.8 H (0.2-1.3) mg/dL AST 148 H (14-36) U/L ALT 57 H (4-34) U/L Alkaline Phosphatase 489 H (38-126) U/L Total Protein 7.3 (6.3-8.2) g/dL Albumin 3.3 L (3.5-5.0) g/dL Amylase 54 (30-110) U/L Lipase 439 H (23-300) U/L Urine Color Yellow Urine Appearance Clear (Clear) Urine pH 7.0 (5.0-8.0) Ur Specific [place] >1.050 H (1.001-1.035) Urine Protein Trace H (Negative) Urine Glucose (UA) Negative (Negative) Urine Ketones Negative (Negative) Urine Blood Negative (Negative) Urine Nitrite Negative (Negative) Urine Bilirubin Negative (Negative) Urine Urobilinogen <2.0 (<2.0) mg/dL Ur Leukocyte Esterase Small H (Negative) Urine RBC 1 (0-5) /hpf Urine WBC 1 (0-5) /hpf Ur Squamous Epith Cells 3 (0-4) /hpf 10/28/22 Range/Units 08:45 WBC (3.8-10.6) k/uL RBC (3.80-5.40) m/uL Hgb (11.4-16.0) gm/dL Hct (34.0-46.0) % MCV (80.0-100.0) fL MCH (25.0-35.0) pg MCHC (31.0-37.0) g/dL RDW (11.5-15.5) % Plt Count (150-450) k/uL MPV Neutrophils % % Lymphocytes % % Monocytes % % Eosinophils % % Basophils % % Neutrophils # (1.3-7.7) k/uL Lymphocytes # (1.0-4.8) k/uL Monocytes # (0-1.0) k/uL Eosinophils # (0-0.7) k/uL Basophils # (0-0.2) k/uL Manual Slide Review Large Platelets Macrocytosis Tear Drop Cells Sodium (137-145) mmol/L Potassium (3.5-5.1) mmol/L Chloride (98-107) mmol/L Carbon Dioxide (22-30) mmol/L Anion Gap mmol/L BUN (7-17) mg/dL Creatinine (0.52-1.04) mg/dL Est GFR (CKD-EPI)AfAm (>60 ml/min/1.73 sqM) Est GFR (CKD-EPI)NonAf (>60 ml/min/1.73 sqM) Glucose (74-99) mg/dL Plasma Lactic Acid Sarmad 1.5 (0.7-2.0) mmol/L Calcium (8.4-10.2) mg/dL Total Bilirubin (0.2-1.3) mg/dL AST (14-36) U/L ALT (4-34) U/L Alkaline Phosphatase (38-126) U/L Total Protein (6.3-8.2) g/dL Albumin (3.5-5.0) g/dL Amylase (30-110) U/L Lipase (23-300) U/L Urine Color Urine Appearance (Clear) Urine pH (5.0-8.0) Ur Specific [place] (1.001-1.035) Urine Protein (Negative) Urine Glucose (UA) (Negative) Urine Ketones (Negative) Urine Blood (Negative) Urine Nitrite (Negative) Urine Bilirubin (Negative) Urine Urobilinogen (<2.0) mg/dL Ur Leukocyte Esterase (Negative) Urine RBC (0-5) /hpf Urine WBC (0-5) /hpf Ur Squamous Epith Cells (0-4) /hpf - Radiology Data Radiology results: report reviewed, image reviewed Disposition Clinical Impression: Malignant neoplasm of breast metastatic to liver, Large bowel obstruction Disposition: ADMITTED IP TO THIS HOSP
[2022-10-28 08:54] LABS: Basophils % (A) 0 %; Eosinophils % (A) 1 %; HCT 37.9 % (34.0-46.0); HGB 12.2 gm/dL (11.4-16.0); Lymphocytes # (A) 0.6 k/uL (1.0-4.8); Lymphocytes % (A) 18 %; MCH 36.9 pg (25.0-35.0); MCHC 32.2 g/dL (31.0-37.0); MCV 114.9 fL (80.0-100.0); Macrocytosis Marked; Mean Platelet Volume 8.5; Monocytes # (A) 0.2 k/uL (0-1.0); Monocytes % (A) 4 %; Neutrophils # (A) 2.5 k/uL (1.3-7.7); Neutrophils % (A) 75 %; Platelet Count 131 k/uL (150-450); RDW 15.1 % (11.5-15.5); WBC 3.4 k/uL (3.8-10.6)
[2022-10-28] MEDS ORDERED: HYDROmorphone 1 MG/ML 1 ML SYRINGE IVP STA (09:02)
[2022-10-28 09:14] LABS: ALT 57 U/L (4-34); AST 148 U/L (14-36); African American GFR (CKD) >90 (>60 ml/min/1.73 sqM); Albumin 3.3 g/dL (3.5-5.0); Alkaline Phosphatase 489 U/L (38-126); Amylase 54 U/L (30-110); Anion Gap 6 mmol/L; Blood Urea Nitrogen 10 mg/dL (7-17); Calcium 8.7 mg/dL (8.4-10.2); Carbon Dioxide 31 mmol/L (22-30); Chloride 104 mmol/L (98-107); Glucose 104 mg/dL (74-99); Lipase 439 U/L (23-300); Non-African American GFR(CKD) >90 (>60 ml/min/1.73 sqM); Potassium 3.6 mmol/L (3.5-5.1); Sodium 141 mmol/L (137-145); Total Bilirubin 1.8 mg/dL (0.2-1.3); Total Protein 7.3 g/dL (6.3-8.2)
[2022-10-28 09:43] LABS: Large Platelets Present; Tear Drop Cells Present
--- NOTE | 2022-10-28 10:09 | CT ---
EXAMINATION TYPE: CT abdomen pelvis w con DATE OF EXAM: 10/28/2022 COMPARISON: 08/17/2022 HISTORY: 42-year-old female mid abd pain, breast CA with mets TECHNIQUE: Contiguous axial scanning of the abdomen and pelvis following administration of 100 ml Iso mary 300 IV contrast. Delayed images through the kidneys and coronal/sagittal reconstructions perform ed. CT DLP: 654 mGycm Automated exposure control for dose reduction was used. FINDINGS: Heart normal size without pericardial effusion.. New [id number] right and trace left pleural effusions. Redemonstrated multiple hepatic lesions with heterogeneous areas of hypodensity and enhancement. Thes e areas are poorly defined but estimated to measure up to 7.3 cm right hepatic dome, relatively simil ar. Portal venous system is patent. No biliary ductal dilatation. Post surgical change of prior gastrectomy. Omental soft tissue in the upper abdomen measuring up to 5 .0 x 2.0 cm versus 2.9 cm, previously. Diffuse omental nodularity is present in the upper and mid abd omen. For example, towards the left, measuring up to 2.7 cm versus 2.1 cm, previously. Mild abdominal ascites and moderate pelvic ascites has developed. There is relative caliber narrowing of the colon at the mid transverse colon and proximal colonic dil atation up to 5.8 cm for the transverse colon and 7.1 cm for the cecum. This segment of narrowed and thickened colon measures up to 6.9 cm long, coronal image 20. Moderate stool more distally within the colon. Gallbladder not well seen. Pancreas, adrenal glands, kidneys within normal limits. Spleen remains enl arged at 14.5 cm. Some prominent fluid-filled small bowel loops in the mid to lower abdomen Uterus anteverted but appears somewhat retroflexed. Nodular perirectal opacities have developed. Both ovaries are visualized. Bones: Diffuse sclerotic osseous metastatic disease. IMPRESSION: 1. DISEASE PROGRESSION COMPARED TO 08/17/2022: NEW SMALL TO MODERATE RIGHT AND TRACE LEFT PLEURAL E FFUSIONS. MULTIPLE KNOWN HEPATIC LESIONS RELATIVELY SIMILAR BUT WITH INCREASING OMENTAL AND NEW PERIT ASKEW DISEASE. 2. NEW, NEARLY 7 CM LONG SEGMENT OF CIRCUMFERENTIALLY NARROWED AND THICKENED MID TRANSVERSE COLON DIR ECTLY ADJACENT TO THE OMENTAL DISEASE. SUSPECT SEROSAL INVOLVEMENT AND SECONDARY DEVELOPING COLONIC O BSTRUCTION. PROXIMAL COLON IS DILATED UP TO 7.1 CM. 3. KNOWN DIFFUSE SCLEROTIC OSSEOUS METASTATIC DISEASE.
[2022-10-28] MEDS ORDERED: NALOXONE 0.4 MG/ML 1 ML VIAL IV PRN (10:25)
[2022-10-28] MEDS ORDERED: KETOROLAC 15 MG/ML 1 ML VIAL IVP PRN (10:25)
[2022-10-28] MEDS ORDERED: METOCLOPRAMIDE 5 MG/ML 2 ML VIAL IVP PRN (10:28)
--- NOTE | 2022-10-28 10:39 | P.HPIM ---
History of Present Illness This is a pleasant 42 years old female with a known history of right breast cancer for the last 10 years with metastasis to the liver and the lower spine. Presents because of abdominal pain patient presents because of abdominal pain started this morning, periumbilical about 10/10 in severity, nonradiating, but lacked somewhat sharp and nonspecific Associated with nausea vomiting, no blood in the bile. Last bowel movement was this morning. She denies chest pain or dyspnea. No headache weakness or numbness. No urinary complaints Patient vitals are stable Labs showing mild leukopenia and thrombocytopenia at WBCs 3.4 and platelet count 131 while hemoglobin normal. BMP is unremarkable. Bilirubin is 1.8 and AST 148 and ALT 57 which are mildly elevated. Lipase 439. CT of the abdomen and pelvis with contrast: 70 cm long segment of transverse: With circumferentially narrowing and wall thickening with adjacent to all mental disease suspect serosal involvement and secondary developing colonic obstruction. Proximal colon dilated up to 7.1 cm. Known diffuse 6 aortic O's chest metastatic disease. [id number] right and left pleural effusion and multiple known hepatic lesions relatively similar but with increasing omental and a new peritoneal disease. Patient received IV fluids, pain medication and admitted with clear liquid diet and surgery and hematology oncology consult Review of Systems Review of systems CONSTITUTIONAL: No fever, no malaise, no fatigue. HEENT: No recent visual problems or hearing problems. Denied any sore throat. CARDIOVASCULAR: No orthopnea, PND, no palpitations, no syncope. PULMONARY: No shortness of breath, no cough, no hemoptysis. GASTROINTESTINAL: No diarrhea, . Normoactive bowel sounds. NEUROLOGICAL: No headaches, no weakness, no numbness. HEMATOLOGICAL: Denies any bleeding or petechiae. GENITOURINARY: Denies any burning micturition, frequency, or urgency. MUSCULOSKELETAL/RHEUMATOLOGICAL: Denies any joint pain, swelling, or any muscle pain. ENDOCRINE: Denies any polyuria or polydipsia. Past Medical History Past Medical History: Cancer Additional Past Medical History / Comment(s): plueral effusion, R breast cancer, liver and lower spine cancer. PANCREATITIS. History of Any Multi-Drug Resistant Organisms: None Reported Past Surgical History: Bariatric Surgery, Breast Surgery Additional Past Surgical History / Comment(s): double mastecomy, R ankle surg, carpel tunnel adrián Past Anesthesia/Blood Transfusion Reactions: No Reported Reaction Past Psychological History: Anxiety Smoking Status: Former smoker Past Alcohol Use History: Occasional Past Drug Use History: None Reported - Past Family History Mother Family Medical History: No Reported History Medications and Allergies Home Medications Medication Instructions Recorded Confirmed Type ALPRAZolam [Xanax] 1 mg PO TID PRN 02/08/19 08/24/22 History Hydrocodone/Acetaminophen [[place] 1 tab PO Q4H PRN 02/08/19 08/24/22 History 7.5-325] Melatonin [Melatonin ER] 10 mg PO PRN 01/28/22 History Allergies Allergy/AdvReac Type Severity Reaction Status Date / Time No Known Allergies Allergy Verified 10/28/22 08:24 Physical Exam Vitals: Vital Signs Temp Pulse Resp BP Pulse Ox 10/28/22 08:22 97.9 F 80 22 124/73 99 Intake and Output 10/27/22 10/28/22 10/28/22 22:59 06:59 14:59 Other: Weight 58.967 kg GENERAL: The patient is alert and oriented x3, not in any acute distress. Well developed, well nourished. HEENT: Pupils are round and equally reacting to light. EOMI. No scleral icterus. No conjunctival pallor. Normocephalic, atraumatic. No pharyngeal erythema. No thyromegaly. CARDIOVASCULAR: S1 and S2 present. No murmurs, rubs, or gallops. PULMONARY: Chest is clear to auscultation, no wheezing or crackles. -ABDOMEN: Soft, periumbilical tenderness, no guarding or rebound tenderness, nondistended, normoactive bowel sounds. No palpable organomegaly. MUSCULOSKELETAL: No joint swelling or deformity. EXTREMITIES: No cyanosis, clubbing, or pedal edema. NEUROLOGICAL: Gross neurological examination did not reveal any focal deficits. SKIN: No rashes. no petechiae. Results CBC & Chem 7: 10/28/22 08:45 10/28/22 08:45 Labs: Abnormal Lab Results - Last 24 Hours (Table) 10/28/22 10/28/22 Range/Units 08:45 08:45 WBC 3.4 L (3.8-10.6) k/uL RBC 3.30 L (3.80-5.40) m/uL MCV 114.9 H (80.0-100.0) fL MCH 36.9 H (25.0-35.0) pg Plt Count 131 L (150-450) k/uL Lymphocytes # 0.6 L (1.0-4.8) k/uL Macrocytosis Marked A Carbon Dioxide 31 H (22-30) mmol/L Creatinine 0.51 L (0.52-1.04) mg/dL Glucose 104 H (74-99) mg/dL Total Bilirubin 1.8 H (0.2-1.3) mg/dL AST 148 H (14-36) U/L ALT 57 H (4-34) U/L Alkaline Phosphatase 489 H (38-126) U/L Albumin 3.3 L (3.5-5.0) g/dL Lipase 439 H (23-300) U/L Assessment and Plan Assessment: Small bowel obstruction Metastatic right breast cancer to the liver and lower spine Mild jaundice and elevated liver enzymes, related to her known metastatic liver disease Plan: Continue with bowel rest IV fluids Pain medication Surgery team consult Hematology/oncology team consult Labs and medication were reviewed.. Continue same treatment. Continue with symptomatic treatment. Resume home medication. Monitor labs and vitals. DVT and GI prophylaxis. Further recommendations as per clinical course of the patient DVT prophylaxis: Subcutaneous heparin GI Prophylaxis: Pepcid Prognosis is guarded
[2022-10-28 11:56] LABS: Appearance,Urine Clear (Clear); Bilirubin,Urine Negative (Negative); Blood,Urine Negative (Negative); Color,Urine Yellow; Glucose,Urine (UA) Negative (Negative); Ketones,Urine Negative (Negative); Leukocyte Esterase,Urine Small (Negative); Nitrite,Urine Negative (Negative); Protein,Urine Trace (Negative); RBC,Urine 1 /hpf (0-5); Squamous Epithelial Cell,Urine 3 /hpf (0-4); Urobilinogen,Urine <2.0 mg/dL (<2.0); WBC,Urine 1 /hpf (0-5)
[2022-10-28 11:58] LABS: Specific Gravity,Urine >1.050 (1.001-1.035)
[2022-10-28] MEDS: HYDROmorphone 0.5 MG/0.5 ML SYRINGE IVP PRN (12:47)
[2022-10-28] MEDS: HYDROmorphone 1 MG/ML 1 ML SYRINGE IVP PRN ×2 (15:32→21:19)
--- NOTE | 2022-10-28 16:47 | P.CONS ---
History of Present Illness - Reason for Consult Consult date: 10/28/22 hx breast cancer Requesting physician: Sharon Cueto - Chief Complaint abdominal pain - History of Present Illness Patient is a 42-year-old female with a history of right breast carcinoma. She is a patient of Dr. Hickey. She was first referred to our clinic in 2011 after having a right mastectomy as well as receiving neoadjuvant chemotherapy. Patient has been on multiple treatment regimens due to disease progression. She is currently on an Enhertu and completed cycle 13 on 10/26/22. Patient presented to the ER for periumbilical abdominal pain and dry heaves. P atient reports over the last 5 days she's been having constipation but did have a bowel movement early this morning. She said yesterday she was able to eat but today symptoms worsened and was unable to tolerate oral intake. Patient denies diarrhea, blood in stool, melena, but does report blood with wiping. Patient denies urinary symptoms, dysuria, urinary frequency. Denies fever and chills. CT abdomen and pelvis revealed disease progression as compared to 3: New small to moderate right and trace left pleural effusions. Multiple known hepatic lesions relatively similar but with increasing omental and new peritoneal disease. New, nearly 7 cm long segment of circumferentially narrowed and thickened mid transverse colon directly adjacent to the omental disease. Suspect serosal involvement and secondary to involving colonic obstruction. Proximal colon is dilated up to 7.1 cm. Known diffuse sclerotic osseous metastatic disease. hemoglobin 12.2, WBC 3.4, platelets 131,000. AST 148, ALTs 57. Review of Systems 10 point ROS is negative except as stated in the HPI Past Medical History Past Medical History: Cancer Additional Past Medical History / Comment(s): plueral effusion, R breast cancer, liver and lower spine cancer. PANCREATITIS. History of Any Multi-Drug Resistant Organisms: None Reported Past Surgical History: Bariatric Surgery, Breast Surgery Additional Past Surgical History / Comment(s): double mastecomy, R ankle surg, carpel tunnel adrián Past Anesthesia/Blood Transfusion Reactions: No Reported Reaction Past Psychological History: Anxiety Smoking Status: Former smoker Past Alcohol Use History: Occasional Past Drug Use History: None Reported - Past Family History Mother Family Medical History: No Reported History Medications and Allergies Home Medications Medication Instructions Recorded Confirmed Type ALPRAZolam [Xanax] 1 mg PO HS 08/16/19 05/05/23 History Hydrocodone/Acetaminophen [[place] 1 tab PO Q4H PRN 02/08/19 10/28/22 History 7.5-325] Enhertu 1 dose IV Q21D 10/28/22 10/28/22 History Allergies Allergy/AdvReac Type Severity Reaction Status Date / Time No Known Allergies Allergy Verified 10/28/22 11:11 Physical Exam Vitals: Vital Signs Temp Pulse Pulse Resp BP BP Pulse Ox 10/28/22 15:39 98.7 F 75 16 104/66 97 10/28/22 14:19 68 18 107/84 96 10/28/22 12:49 69 18 111/67 97 10/28/22 08:22 97.9 F 80 22 124/73 99 Intake and Output 10/28/22 10/28/22 10/28/22 06:59 14:59 22:59 Other: Weight 58.967 kg - Constitutional General appearance: average body habitus, no acute distress - EENT Eyes: anicteric sclerae, EOMI ENT: hearing grossly normal - Respiratory Respiratory: bilateral: CTA - Cardiovascular Rhythm: regular Heart sounds: normal: S1, S2 Abnormal Heart Sounds: no systolic murmur, no diastolic murmur, no rub, no S3 Gallop, no S4 Gallop, no click, no other - Gastrointestinal firmness upon palpation General gastrointestinal: tenderness Localized gastrointestinal: tender: epigastric periumbilical - Integumentary Integumentary: normal - Neurologic Neurologic: CNII-XII intact - Musculoskeletal Musculoskeletal: strength equal bilaterally - Psychiatric Psychiatric: A&O x's 3, appropriate affect, intact judgment & insight Results CBC & Chem 7: 10/28/22 08:45 10/28/22 08:45 Labs: Abnormal Lab Results - Last 24 Hours (Table) 10/28/22 10/28/22 10/28/22 Range/Units 08:45 08:45 08:45 WBC 3.4 L (3.8-10.6) k/uL RBC 3.30 L (3.80-5.40) m/uL MCV 114.9 H (80.0-100.0) fL MCH 36.9 H (25.0-35.0) pg Plt Count 131 L (150-450) k/uL Lymphocytes # 0.6 L (1.0-4.8) k/uL Macrocytosis Marked A Carbon Dioxide 31 H (22-30) mmol/L Creatinine 0.51 L (0.52-1.04) mg/dL Glucose 104 H (74-99) mg/dL Total Bilirubin 1.8 H (0.2-1.3) mg/dL AST 148 H (14-36) U/L ALT 57 H (4-34) U/L Alkaline Phosphatase 489 H (38-126) U/L Albumin 3.3 L (3.5-5.0) g/dL Lipase 439 H (23-300) U/L Ur Specific [place] >1.050 H (1.001-1.035) Urine Protein Trace H (Negative) Ur Leukocyte Esterase Small H (Negative) CT scan - abdomen: report reviewed CT scan - pelvis: report reviewed Assessment and Plan (1) Breast carcinoma Current Visit: Yes Status: Acute Priority: High Code(s): C50.919 - MALIGNANT NEOPLASM OF UNSP SITE OF UNSPECIFIED FEMALE BREAST SNOMED Code(s): 074446195 (2) Large bowel obstruction Current Visit: Yes Status: Acute Priority: High Code(s): K56.609 - UNSP INTESTNL OBST, UNSP TO PARTIAL VERSUS COMPLETE OBST SNOMED Code(s): 24905 4000 Plan: Metastatic breast carcinoma: -Long history of breast cancer. Hx right mastectomy and has been on multiple treatment regimens due to disease progression. She is currently on an Enhertu and completed cycle 13 on 10/26/22. -CT abdomen pelvis revealed disease progression. Will schedule outpatient follow-up with Dr. Hickey to discuss further treatment options. Discussed with patient and family that she will likely have to switch to new regimen due to progression of disease. Patient and family verbalized understanding and are agreeable with the plan Colon obstruction: -CT abd/pelvis revealed increasing omental and new peritoneal disease. New, nearly 7 cm long segment of circumferentially narrowed and thickened mid transverse colon directly adjacent to the omental disease. Suspect serosal involvement and secondary to involving colonic obstruction. Proximal colon is dilated up to 7.1 cm. -Surgery has been consulted attests: I have performed H&P and developed impression and plan of care for patient, discussed with dictator. I agree with dictated note, documented as a scribe
[2022-10-28] MEDS ORDERED: ONDANSETRON 4 MG/2 ML VIAL IVP PRN (17:58)
[2022-10-28] MEDS ORDERED: ALPRAZolam 1 MG TAB PO SCH (21:00)
[2022-10-28] MEDS: FAMOTIDINE 20 MG/2 ML VIAL IV SCH (21:16)
[2022-10-28] MEDS: HEPARIN SODIUM,PORCINE/PF 5,000 UNIT/0.5 ML SYRINGE SQ SCH (21:16)
[2022-10-29] MEDS ORDERED: DEXTROSE 5%-0.9% NACL 1,000 ML IV SCH (08:00)
[2022-10-29] MEDS ORDERED: PIPERACILLIN-TAZOBACTAM 3.375 GM in SODIUM CHLORIDE 0.9% 100 ML IVPB SCH (08:00)
[2022-10-29] MEDS: HEPARIN SODIUM,PORCINE/PF 5,000 UNIT/0.5 ML SYRINGE SQ SCH ×2 (08:43→21:33)
[2022-10-29] MEDS: FAMOTIDINE 20 MG/2 ML VIAL IV SCH ×2 (08:44→21:33)
[2022-10-29 08:53] LABS: Basophils % (A) 0 %; Eosinophils # (A) 0.1 k/uL (0-0.7); Eosinophils % (A) 3 %; HCT 34.2 % (34.0-46.0); HGB 10.9 gm/dL (11.4-16.0); Hypochromasia Slight; Lymphocytes # (A) 0.8 k/uL (1.0-4.8); Lymphocytes % (A) 30 %; MCH 37.7 pg (25.0-35.0); MCHC 31.8 g/dL (31.0-37.0); MCV 118.3 fL (80.0-100.0); Macrocytosis Marked; Mean Platelet Volume 8.2; Monocytes # (A) 0.1 k/uL (0-1.0); Monocytes % (A) 4 %; Neutrophils # (A) 1.5 k/uL (1.3-7.7); Neutrophils % (A) 61 %; Platelet Count 101 k/uL (150-450); RBC 2.89 m/uL (3.80-5.40); RDW 14.8 % (11.5-15.5); WBC 2.5 k/uL (3.8-10.6)
[2022-10-29 09:02] LABS: ALT 43 U/L (4-34); AST 107 U/L (14-36); African American GFR (CKD) >90 (>60 ml/min/1.73 sqM); Albumin 2.8 g/dL (3.5-5.0); Albumin/Globulin Ratio 0.8; Alkaline Phosphatase 417 U/L (38-126); Anion Gap 3 mmol/L; Bilirubin,Unconjugated 1.7 mg/dL (0.0-1.1); Blood Urea Nitrogen 11 mg/dL (7-17); Calcium 8.6 mg/dL (8.4-10.2); Carbon Dioxide 28 mmol/L (22-30); Chloride 103 mmol/L (98-107); Globulin 3.3 g/dL; Glucose 82 mg/dL (74-99); Non-African American GFR(CKD) >90 (>60 ml/min/1.73 sqM); Potassium 4.4 mmol/L (3.5-5.1); Sodium 134 mmol/L (137-145); Total Bilirubin 2.3 mg/dL (0.2-1.3); Total Protein 6.1 g/dL (6.3-8.2)
--- NOTE | 2022-10-29 10:01 | P.GSCN ---
History of Present Illness Consult date: 10/29/22 Reason for Consult: Abdominal pain, colonic obstruction History of present illness: Is a 42-year-old female who has a history of metastatic breast cancer. Patient developed severe acute abdominal pain yesterday with nausea and vomiting. Rosalva ent's CAT scan performed shows a 7 cm segment of the transverse colon which is thickened and partially occluded. There is evidence of omental thickening. Patient has had significant disease progression since her last CAT scan July 2022. Patient states she had a bowel movement and feels better this morning. She feels mildly bloated. Past Medical History Past Medical History: Cancer Additional Past Medical History / Comment(s): plueral effusion, R breast cancer, liver and lower spine cancer. PANCREATITIS. History of Any Multi-Drug Resistant Organisms: None Reported Past Surgical History: Bariatric Surgery, Breast Surgery Additional Past Surgical History / Comment(s): double mastecomy, R ankle surg, carpel tunnel adrián Past Anesthesia/Blood Transfusion Reactions: No Reported Reaction Past Psychological History: Anxiety Smoking Status: Former smoker Past Alcohol Use History: Occasional Past Drug Use History: None Reported - Past Family History Mother Family Medical History: No Reported History Medications and Allergies Home Medications Medication Instructions Recorded Confirmed Type ALPRAZolam [Xanax] 1 mg PO HS 02/08/19 10/28/22 History Hydrocodone/Acetaminophen [[place] 1 tab PO Q4H PRN 02/08/19 10/28/22 History 7.5-325] Enhertu 1 dose IV Q21D 10/28/22 10/28/22 History Allergies Allergy/AdvReac Type Severity Reaction Status Date / Time No Known Allergies Allergy Verified 10/28/22 11:11 Surgical - Exam Vital Signs Temp Pulse Resp BP Pulse Ox 97.9 F 80 22 124/73 99 10/28/22 08:22 10/28/22 08:22 10/28/22 08:22 10/28/22 08:22 10/28/22 08:22 - General no distress - Eyes PERRL - ENT normal pinna - Neck no masses - Respiratory normal expansion - Cardiovascular Rhythm: regular - Abdomen There was distention. There is no rebound or guarding. There is no peritoneal signs. Abdomen: soft Results - Labs 10/29/22 08:17 10/29/22 08:17 Abnormal Lab Results - Last 24 Hours (Table) 10/28/22 10/29/22 10/29/22 Range/Units 08:45 08:17 08:17 WBC 2.5 L (3.8-10.6) k/uL RBC 2.89 L (3.80-5.40) m/uL Hgb 10.9 L (11.4-16.0) gm/dL MCV 118.3 H (80.0-100.0) fL MCH 37.7 H (25.0-35.0) pg Plt Count 101 L (150-450) k/uL Lymphocytes # 0.8 L (1.0-4.8) k/uL Macrocytosis Marked A Sodium 134 L (137-145) mmol/L Creatinine 0.47 L (0.52-1.04) mg/dL Total Bilirubin 2.3 H (0.2-1.3) mg/dL Unconjugated Bilirubin 1.7 H (0.0-1.1) mg/dL AST 107 H (14-36) U/L ALT 43 H (4-34) U/L Alkaline Phosphatase 417 H (38-126) U/L Total Protein 6.1 L (6.3-8.2) g/dL Albumin 2.8 L (3.5-5.0) g/dL Ur Specific [place] >1.050 H (1.001-1.035) Urine Protein Trace H (Negative) Ur Leukocyte Esterase Small H (Negative) Diabetes panel 10/29/22 Range/Units 08:17 Sodium 134 L (137-145) mmol/L Potassium 4.4 (3.5-5.1) mmol/L Chloride 103 (98-107) mmol/L Carbon Dioxide 28 (22-30) mmol/L BUN 11 (7-17) mg/dL Creatinine 0.47 L (0.52-1.04) mg/dL Glucose 82 (74-99) mg/dL Calcium 8.6 (8.4-10.2) mg/dL AST 107 H (14-36) U/L ALT 43 H (4-34) U/L Alkaline Phosphatase 417 H (38-126) U/L Total Protein 6.1 L (6.3-8.2) g/dL Albumin 2.8 L (3.5-5.0) g/dL Calcium panel 10/29/22 Range/Units 08:17 Calcium 8.6 (8.4-10.2) mg/dL Albumin 2.8 L (3.5-5.0) g/dL Pituitary panel 10/29/22 Range/Units 08:17 Sodium 134 L (137-145) mmol/L Potassium 4.4 (3.5-5.1) mmol/L Chloride 103 (98-107) mmol/L Carbon Dioxide 28 (22-30) mmol/L BUN 11 (7-17) mg/dL Creatinine 0.47 L (0.52-1.04) mg/dL Glucose 82 (74-99) mg/dL Calcium 8.6 (8.4-10.2) mg/dL Adrenal panel 10/29/22 Range/Units 08:17 Sodium 134 L (137-145) mmol/L Potassium 4.4 (3.5-5.1) mmol/L Chloride 103 (98-107) mmol/L Carbon Dioxide 28 (22-30) mmol/L BUN 11 (7-17) mg/dL Creatinine 0.47 L (0.52-1.04) mg/dL Glucose 82 (74-99) mg/dL Calcium 8.6 (8.4-10.2) mg/dL Total Bilirubin 2.3 H (0.2-1.3) mg/dL AST 107 H (14-36) U/L ALT 43 H (4-34) U/L Alkaline Phosphatase 417 H (38-126) U/L Total Protein 6.1 L (6.3-8.2) g/dL Albumin 2.8 L (3.5-5.0) g/dL - Imaging CT scan - abdomen: pending (Mental thickening, transverse colon partial occlusion) Assessment and Plan Assessment: History of metastatic breast cancer. Patient is not completely obstructed currently. She is passing gas and having bowel movement. Patient will continue medical management. If she has evidence of colonic obstruction or perforation she will require laparotomy. I discussed the patient that I think she can be observed currently. We will follow with you.
--- NOTE | 2022-10-29 18:02 | P.PN ---
Subjective This is a pleasant 42 years old female with a known history of right breast cancer for the last 10 years with metastasis to the liver and the lower spine. Presents because of abdominal pain patient presents because of abdominal pain started this morning, periumbilical about 10/10 in severity, nonradiating, but lacked somewhat sharp and nonspecific Associated with nausea vomiting, no blood in the bile. Last bowel movement was this morning. She denies chest pain or dyspnea. No headache weakness or numbness. No urinary complaints Patient vitals are stable Labs showing mild leukopenia and thrombocytopenia at WBCs 3.4 and platelet count 131 while hemoglobin normal. BMP is unremarkable. Bilirubin is 1.8 and AST 148 and ALT 57 which are mildly elevated. Lipase 439. CT of the abdomen and pelvis with contrast: 70 cm long segment of transverse: With circumferentially narrowing and wall thickening with adjacent to all mental disease suspect serosal involvement and secondary developing colonic obstruction. Proximal colon dilated up to 7.1 cm. Known diffuse 6 aortic O's chest metastatic disease. [id number] right and left pleural effusion and multiple known hepatic lesions relatively similar but with increasing omental and a new peritoneal disease. Patient received IV fluids, pain medication and admitted with clear liquid diet and surgery and hematology oncology consult 10/29/2022 patient is improving, she is tolerating liquid diet, her abdominal pain is improving Patient had 2 bowel movements this morning No evidence of infection Surgery input is appreciated and we'll keep monitoring for now Plan discussed with patient and she agrees Objective - Vital Signs Vital signs: Vital Signs Temp 99.1 F 10/29/22 08:15 Pulse 84 10/29/22 08:15 Resp 16 10/29/22 08:15 BP 103/64 10/29/22 08:15 Pulse Ox 96 10/29/22 08:15 FiO2 Intake & Output 10/28/22 10/29/22 10/29/22 18:59 06:59 18:59 Intake Total 710 Balance 710 Weight 58.967 kg Intake: Oral 710 Other: Voiding Method Toilet # Voids 1 2 1 # Bowel Movements 1 - Exam GENERAL: The patient is alert and oriented x3, not in any acute distress. Well developed, well nourished. HEENT: Pupils are round and equally reacting to light. EOMI. No scleral icterus. No conjunctival pallor. Normocephalic, atraumatic. No pharyngeal erythema. No thyromegaly. CARDIOVASCULAR: S1 and S2 present. No murmurs, rubs, or gallops. PULMONARY: Chest is clear to auscultation, no wheezing . no crackles. -ABDOMEN: Soft,mild abdominal tenderness , nondistended, normoactive bowel sounds. No palpable organomegaly. MUSCULOSKELETAL: No joint swelling or deformity. EXTREMITIES: No cyanosis, clubbing, or pedal edema. NEUROLOGICAL: Gross neurological examination did not reveal any focal deficits. SKIN: No rashes. no petechiae. - Labs CBC & Chem 7: 10/29/22 08:17 10/29/22 08:17 Labs: Abnormal Lab Results - Last 24 Hours (Table) 10/28/22 10/29/22 10/29/22 Range/Units 08:45 08:17 08:17 WBC 2.5 L (3.8-10.6) k/uL RBC 2.89 L (3.80-5.40) m/uL Hgb 10.9 L (11.4-16.0) gm/dL MCV 118.3 H (80.0-100.0) fL MCH 37.7 H (25.0-35.0) pg Plt Count 101 L (150-450) k/uL Lymphocytes # 0.8 L (1.0-4.8) k/uL Macrocytosis Marked A Sodium 134 L (137-145) mmol/L Creatinine 0.47 L (0.52-1.04) mg/dL Total Bilirubin 2.3 H (0.2-1.3) mg/dL Unconjugated Bilirubin 1.7 H (0.0-1.1) mg/dL AST 107 H (14-36) U/L ALT 43 H (4-34) U/L Alkaline Phosphatase 417 H (38-126) U/L Total Protein 6.1 L (6.3-8.2) g/dL Albumin 2.8 L (3.5-5.0) g/dL Ur Specific [place] >1.050 H (1.001-1.035) Urine Protein Trace H (Negative) Ur Leukocyte Esterase Small H (Negative) Assessment and Plan Assessment: Small bowel obstruction Metastatic right breast cancer to the liver and lower spine Mild jaundice and elevated liver enzymes, related to her known metastatic liver disease Plan: Continue liquid diet dc iv fluids Pain medication Surgery team consult Hematology/oncology team consult Labs and medication were reviewed.. Continue same treatment. Continue with symptomatic treatment. Resume home medication. Monitor labs and vitals. DVT and GI prophylaxis. Further recommendations as per clinical course of the patient DVT prophylaxis: Subcutaneous heparin GI Prophylaxis: Pepcid Prognosis is guarded
[2022-10-29] MEDS: ALPRAZolam 1 MG TAB PO PRN (21:32)
[2022-10-29] MEDS: HYDROmorphone 1 MG/ML 1 ML SYRINGE IVP PRN (21:32)
--- NOTE | 2022-10-29 23:40 | P.PN ---
Subjective Progress Note Date: 10/29/22 CHIEF COMPLAINT: Metastatic breast cancer HISTORY OF PRESENT ILLNESS: The patient is a 42-year-old female admitted with metastatic breast cancer. She is tolerating chocolate pudding. Family is at bedside. ROS: No fevers or chills. No new chest pain. No productive sputum PHYSICAL EXAM: VITAL SIGNS: Reviewed CONSTITUTIONAL: Well developed and in no acute distress. EYES: Conjuctivae without sclera icterus. Extraocular movements grossly intact. HEAD, EARS, NOSE, THROAT: Moist buccal mucosa. Head is atraumatic, normocephalic. Hears conversational speech. No nasal drainage. RESPIRATORY: Non-labored respirations and equal bilateral excursions. CARDIOVASCULAR: Regular rate ABDOMEN: No peritonitis MUSCULOSKELETAL: No gross deformity of the lower extremities noted. No clubbing. No cyanosis. NEUROLOGIC: Cranial nerves II through XII grossly intact. No focal or lateralizing signs. PSYCH: Appropriate affect. Alert and oriented to person, place and time. CLINICAL LABS: Reviewed. STUDIES: CT of the abdomen and pelvis and pending review demonstrates metastatic lesion of the mid transverse colon without obstruction. This is my independent interpretation. ASSESSMENT: 1. Metastatic breast cancer. PLAN: 1. Diet as tolerated. 2. Continue to monitor for obstructive symptoms. Objective - Vital Signs Vital signs: Vital Signs Temp 99.2 F 10/29/22 20:00 Pulse 76 10/29/22 20:00 Resp 16 10/29/22 20:00 BP 103/67 10/29/22 20:00 Pulse Ox 97 10/29/22 20:00 FiO2 Intake & Output 10/29/22 10/29/22 10/30/22 06:59 18:59 06:59 Intake Total 710 Balance 710 Intake: Oral 710 Other: Voiding Method Toilet Toilet # Voids 2 3 # Bowel Movements 1 - Labs CBC & Chem 7: 10/29/22 08:17 10/29/22 08:17 Labs: Abnormal Lab Results - Last 24 Hours (Table) 10/29/22 10/29/22 Range/Units 08:17 08:17 WBC 2.5 L (3.8-10.6) k/uL RBC 2.89 L (3.80-5.40) m/uL Hgb 10.9 L (11.4-16.0) gm/dL MCV 118.3 H (80.0-100.0) fL MCH 37.7 H (25.0-35.0) pg Plt Count 101 L (150-450) k/uL Lymphocytes # 0.8 L (1.0-4.8) k/uL Macrocytosis Marked A Sodium 134 L (137-145) mmol/L Creatinine 0.47 L (0.52-1.04) mg/dL Total Bilirubin 2.3 H (0.2-1.3) mg/dL Unconjugated Bilirubin 1.7 H (0.0-1.1) mg/dL AST 107 H (14-36) U/L ALT 43 H (4-34) U/L Alkaline Phosphatase 417 H (38-126) U/L Total Protein 6.1 L (6.3-8.2) g/dL Albumin 2.8 L (3.5-5.0) g/dL
[2022-10-30] MEDS: HEPARIN SODIUM,PORCINE/PF 5,000 UNIT/0.5 ML SYRINGE SQ SCH ×2 (09:28→21:11)
[2022-10-30] MEDS: FAMOTIDINE 20 MG/2 ML VIAL IV SCH ×2 (09:28→21:04)
[2022-10-30 11:09] LABS: African American GFR (CKD) 129.1 (60.0-200.0); Albumin 2.9 g/dL (3.8-4.9); Albumin/Globulin Ratio 0.97 (1.60-3.17); BUN/Creat Ratio 13.85 Ratio (12.00-20.00); Bilirubin, Conjugated 0.89 mg/dL (0.20-0.40); Bilirubin,Unconjugated 1.02 mg/dL (0.20-1.00); Blood Urea Nitrogen 8.2 mg/dL (9.0-27.0); Carbon Dioxide 25.9 mmol/L (20.0-27.5); Non-African American GFR(CKD) 111.4 (60.0-200.0); Potassium 4.1 mmol/L (3.5-5.5); Total Bilirubin 1.9 mg/dL (0.30-1.20); Total Protein 5.8 g/dL (6.2-8.2)
[2022-10-30 12:33] LABS: Basophils # (A) 0.01 X 10*3/uL (0.00-0.10); Basophils % (A) 0.4 %; Eosinophils # (A) 0.09 X 10*3/uL (0.04-0.35); Eosinophils % (A) 3.4 %; HCT 31.5 % (37.2-46.3); HGB 10.5 g/dL (12.0-15.0); Immature Grans, Automated 0.4 %; Lymphocytes # (A) 1.04 X 10*3/uL (0.90-5.00); Lymphocytes % (A) 39.2 %; MCHC 33.3 g/dL (32.0-37.0); MCV 114.1 fL (80.0-97.0); Mean Platelet Volume 11.1 fL (9.5-12.2); Monocytes # (A) 0.16 X 10*3/uL (0.20-1.00); NRBC Per 100 WBC 0 /100 WBCS (0.0-0.0); Neutrophils # (A) 1.34 X 10*3/uL (1.80-7.70); Neutrophils % (A) 50.6 %; Platelet Count 93 X 10*3/uL (140-440); RBC 2.76 X 10*6/uL (4.10-5.20); WBC 2.65 X 10*3/uL (4.50-10.00)
[2022-10-30 12:34] LABS: Macrocytosis (M) 2+
--- NOTE | 2022-10-30 18:11 | P.PN ---
Subjective This is a pleasant 42 years old female with a known history of right breast cancer for the last 10 years with metastasis to the liver and the lower spine. Presents because of abdominal pain patient presents because of abdominal pain started this morning, periumbilical about 10/10 in severity, nonradiating, but lacked somewhat sharp and nonspecific Associated with nausea vomiting, no blood in the bile. Last bowel movement was this morning. She denies chest pain or dyspnea. No headache weakness or numbness. No urinary complaints Patient vitals are stable Labs showing mild leukopenia and thrombocytopenia at WBCs 3.4 and platelet count 131 while hemoglobin normal. BMP is unremarkable. Bilirubin is 1.8 and AST 148 and ALT 57 which are mildly elevated. Lipase 439. CT of the abdomen and pelvis with contrast: 70 cm long segment of transverse: With circumferentially narrowing and wall thickening with adjacent to all mental disease suspect serosal involvement and secondary developing colonic obstruction. Proximal colon dilated up to 7.1 cm. Known diffuse 6 aortic O's chest metastatic disease. [id number] right and left pleural effusion and multiple known hepatic lesions relatively similar but with increasing omental and a new peritoneal disease. Patient received IV fluids, pain medication and admitted with clear liquid diet and surgery and hematology oncology consult 10/29/2022 patient is improving, she is tolerating liquid diet, her abdominal pain is improving Patient had 2 bowel movements this morning No evidence of infection Surgery input is appreciated and we'll keep monitoring for now Plan discussed with patient and she agrees 10/30/2022 Patient had 2 bowel movements yesterday morning, no bowel movement since then and today. She tolerates liquid diet and asked to be advanced however she still coming from mild epigastric tenderness Antibiotic and IV fluids on hold We will check the progression of starting the morning and check labs in the morning 80 labs reviewed and has mild pancytopenia, liver enzymes mildly elevated. Objective - Vital Signs Vital signs: Vital Signs Temp 98.7 F 10/30/22 07:26 Pulse 69 10/30/22 07:26 Resp 16 10/30/22 07:26 BP 101/61 10/30/22 07:26 Pulse Ox 98 10/30/22 07:26 FiO2 Intake & Output 10/29/22 10/30/22 10/30/22 18:59 06:59 18:59 Intake Total 590 Balance 590 Intake: Oral 590 Other: Voiding Method Toilet Toilet # Voids 3 2 # Bowel Movements 1 - Exam GENERAL: The patient is alert and oriented x3, not in any acute distress. Well developed, well nourished. HEENT: Pupils are round and equally reacting to light. EOMI. No scleral icterus. No conjunctival pallor. Normocephalic, atraumatic. No pharyngeal erythema. No thyromegaly. CARDIOVASCULAR: S1 and S2 present. No murmurs, rubs, or gallops. PULMONARY: Chest is clear to auscultation, no wheezing . no crackles. -ABDOMEN: Soft,mild abdominal tenderness , nondistended, normoactive bowel sounds. No palpable organomegaly. MUSCULOSKELETAL: No joint swelling or deformity. EXTREMITIES: No cyanosis, clubbing, or pedal edema. NEUROLOGICAL: Gross neurological examination did not reveal any focal deficits. SKIN: No rashes. no petechiae. - Labs CBC & Chem 7: 10/30/22 06:53 10/30/22 06:53 Labs: Abnormal Lab Results - Last 24 Hours (Table) 10/29/22 10/29/22 Range/Units 08:17 08:17 WBC 2.5 L (3.8-10.6) k/uL RBC 2.89 L (3.80-5.40) m/uL Hgb 10.9 L (11.4-16.0) gm/dL MCV 118.3 H (80.0-100.0) fL MCH 37.7 H (25.0-35.0) pg Plt Count 101 L (150-450) k/uL Lymphocytes # 0.8 L (1.0-4.8) k/uL Macrocytosis Marked A Sodium 134 L (137-145) mmol/L Creatinine 0.47 L (0.52-1.04) mg/dL Total Bilirubin 2.3 H (0.2-1.3) mg/dL Unconjugated Bilirubin 1.7 H (0.0-1.1) mg/dL AST 107 H (14-36) U/L ALT 43 H (4-34) U/L Alkaline Phosphatase 417 H (38-126) U/L Total Protein 6.1 L (6.3-8.2) g/dL Albumin 2.8 L (3.5-5.0) g/dL Assessment and Plan Assessment: Small bowel obstruction Metastatic right breast cancer to the liver and lower spine Mild jaundice and elevated liver enzymes, related to her known metastatic liver disease Plan: check pro-calcitonin Continue liquid diet, advance per surgery team dc iv fluids Pain medication Surgery team consult Hematology/oncology team consult Labs and medication were reviewed.. Continue same treatment. Continue with symptomatic treatment. Resume home medication. Monitor labs and vitals. DVT and GI prophylaxis. Further recommendations as per clinical course of the patient DVT prophylaxis: Subcutaneous heparin GI Prophylaxis: Pepcid Prognosis is guarded
[2022-10-30] MEDS: ALPRAZolam 1 MG TAB PO PRN (21:04)
[2022-10-30] MEDS: HYDROmorphone 1 MG/ML 1 ML SYRINGE IVP PRN (21:04)
--- NOTE | 2022-10-31 01:21 | P.PN ---
Subjective Progress Note Date: 10/30/22 CHIEF COMPLAINT: Metastatic breast cancer HISTORY OF PRESENT ILLNESS: The patient is a 42-year-old female admitted with metastatic breast cancer. She is tolerating full liquid diet. No reports of moderate abdominal pain. She reports upper abdominal pain from retching several days ago. ROS: No fevers or chills. No new chest pain. No productive sputum PHYSICAL EXAM: VITAL SIGNS: Reviewed CONSTITUTIONAL: Well developed and in no acute distress. EYES: Conjuctivae without sclera icterus. Extraocular movements grossly intact. HEAD, EARS, NOSE, THROAT: Moist buccal mucosa. Head is atraumatic, normocephalic. Hears conversational speech. No nasal drainage. RESPIRATORY: Non-labored respirations and equal bilateral excursions. CARDIOVASCULAR: Regular rate ABDOMEN: No peritonitis MUSCULOSKELETAL: No gross deformity of the lower extremities noted. No clubbing. No cyanosis. NEUROLOGIC: Cranial nerves II through XII grossly intact. No focal or lateralizing signs. PSYCH: Appropriate affect. Alert and oriented to person, place and time. CLINICAL LABS: Reviewed. WBC 2.6, leukopenic ASSESSMENT: 1. Metastatic breast cancer. 2. Leukopenia 3. Colonic lesion metastases PLAN: 1. Diet as tolerated. 2. Continue to monitor for obstructive symptoms. 3. Stable for discharge from surgical standpoint once tolerating soft diet 4. Discussed with patient, the alternative form of chemotherapy due to progressive metastatic disease Objective - Vital Signs Vital signs: Vital Signs Temp 97.9 F 10/30/22 18:59 Pulse 77 10/30/22 18:59 Resp 18 10/30/22 20:00 BP 109/70 10/30/22 18:59 Pulse Ox 98 10/30/22 18:59 FiO2 Intake & Output 10/30/22 10/30/22 10/31/22 06:59 18:59 06:59 Intake Total 590 Balance 590 Intake: Oral 590 Other: Voiding Method Toilet Toilet Toilet # Voids 2 0 # Bowel Movements 0 - Labs CBC & Chem 7: 10/30/22 06:53 10/30/22 06:53 Labs: Abnormal Lab Results - Last 24 Hours (Table) 10/30/22 10/30/22 Range/Units 06:53 06:53 WBC 2.65 L (4.50-10.00) X 10*3/uL RBC 2.76 L (4.10-5.20) X 10*6/uL Hgb 10.5 L (12.0-15.0) g/dL Hct 31.5 L (37.2-46.3) % MCV 114.1 H (80.0-97.0) fL MCH 38.0 H (27.0-32.0) pg Plt Count 93 L (140-440) X 10*3/uL Plt Count Comment DECREASED A Neutrophils # 1.34 L (1.80-7.70) X 10*3/uL Monocytes # 0.16 L (0.20-1.00) X 10*3/uL Anion Gap 8.00 L (10.00-18.00) mmol/L BUN 8.2 L (9.0-27.0) mg/dL Total Bilirubin 1.90 H (0.30-1.20) mg/dL Conjugated Bilirubin 0.89 H (0.20-0.40) mg/dL Unconjugated Bilirubin 1.02 H (0.20-1.00) mg/dL AST 87 H (13-35) U/L Alkaline Phosphatase 443 H (41-126) U/L Total Protein 5.8 L (6.2-8.2) g/dL Albumin 2.9 L (3.8-4.9) g/dL Albumin/Globulin Ratio 0.97 L (1.60-3.17) g/dL
[2022-10-31] MEDS: HEPARIN SODIUM,PORCINE/PF 5,000 UNIT/0.5 ML SYRINGE SQ SCH ×2 (08:02→21:12)
[2022-10-31] MEDS: FAMOTIDINE 20 MG/2 ML VIAL IV SCH ×2 (08:03→21:11)
[2022-10-31 08:54] LABS: Basophils # (A) 0.01 X 10*3/uL (0.00-0.10); Basophils % (A) 0.3 %; Eosinophils # (A) 0.09 X 10*3/uL (0.04-0.35); Eosinophils % (A) 3.1 %; HCT 33.5 % (37.2-46.3); HGB 11.1 g/dL (12.0-15.0); Immature Grans, Automated 0.3 %; Lymphocytes # (A) 1.16 X 10*3/uL (0.90-5.00); Lymphocytes % (A) 39.3 %; MCH 37.9 pg (27.0-32.0); MCHC 33.1 g/dL (32.0-37.0); MCV 114.3 fL (80.0-97.0); Mean Platelet Volume 10.6 fL (9.5-12.2); Monocytes # (A) 0.19 X 10*3/uL (0.20-1.00); Monocytes % (A) 6.4 %; NRBC Per 100 WBC 0 /100 WBCS (0.0-0.0); Neutrophils # (A) 1.49 X 10*3/uL (1.80-7.70); Neutrophils % (A) 50.6 %; Platelet Count 95 X 10*3/uL (140-440); RBC 2.93 X 10*6/uL (4.10-5.20); WBC 2.95 X 10*3/uL (4.50-10.00)
[2022-10-31 11:13] LABS: African American GFR (CKD) 128.5 (60.0-200.0); Albumin/Globulin Ratio 0.94 (1.60-3.17); Anion Gap 10.5 mmol/L (10.00-18.00); Bilirubin, Conjugated 0.73 mg/dL (0.20-0.40); Bilirubin,Unconjugated 0.67 mg/dL (0.20-1.00); Calcium 9.2 mg/dL (8.7-10.3); Carbon Dioxide 24.5 mmol/L (20.0-27.5); Globulin 3.2 g/dL (1.6-3.3); Non-African American GFR(CKD) 110.9 (60.0-200.0); Potassium 3.9 mmol/L (3.5-5.5); Total Bilirubin 1.4 mg/dL (0.30-1.20); Total Protein 6.2 g/dL (6.2-8.2)
--- NOTE | 2022-10-31 11:57 | P.PN ---
Subjective Progress Note Date: 10/31/22 CHIEF COMPLAINT: Metastatic breast cancer HISTORY OF PRESENT ILLNESS: Patient reports improvement in her abdominal pain. She is tolerating a full liquid diet. She reports having bowel movements. Denies any nausea or vomiting. Afebrile. WBC 2.95 hgb11.1 platelets 95 sodium 139 potassium 3.9 creatinine 0.6 PHYSICAL EXAM: VITAL SIGNS: Reviewed. GENERAL: Well-developed in no acute distress. ABDOMEN: Soft. Nondistended. Nontender. NEUROLOGIC: Alert and oriented. Cranial nerves II through XII grossly intact. ASSESSMENT: 1. Metastatic breast cancer 2. Leukopenia 3. Colonic lesion metastases PLAN: -Advance diet as tolerated -Monitor for evidence of colonic obstruction -Followed by oncology service Physician Addictions Therapist note has been reviewed by physician. Signing provider agrees with the documented findings, assessment, and plan of care. Objective - Vital Signs Vital signs: Vital Signs Temp 97.6 F 10/31/22 07:23 Pulse 63 10/31/22 07:23 Resp 16 10/31/22 07:23 BP 95/60 10/31/22 07:23 Pulse Ox 96 10/31/22 07:23 FiO2 Intake & Output 10/30/22 10/31/22 10/31/22 18:59 06:59 18:59 Intake Total 350 Balance 350 Intake: Oral 350 Other: Voiding Method Toilet Toilet # Voids 2 # Bowel Movements 0 - Labs CBC & Chem 7: 10/31/22 05:58 10/31/22 05:58 Labs: Abnormal Lab Results - Last 24 Hours (Table) 10/30/22 10/31/22 10/31/22 Range/Units 06:53 05:58 05:58 WBC 2.65 L 2.95 L (4.50-10.00) X 10*3/uL RBC 2.76 L 2.93 L (4.10-5.20) X 10*6/uL Hgb 10.5 L 11.1 L (12.0-15.0) g/dL Hct 31.5 L 33.5 L (37.2-46.3) % MCV 114.1 H 114.3 H (80.0-97.0) fL MCH 38.0 H 37.9 H (27.0-32.0) pg Plt Count 93 L 95 L (140-440) X 10*3/uL Plt Count Comment DECREASED A Neutrophils # 1.34 L 1.49 L (1.80-7.70) X 10*3/uL Monocytes # 0.16 L 0.19 L (0.20-1.00) X 10*3/uL Total Bilirubin 1.40 H (0.30-1.20) mg/dL Conjugated Bilirubin 0.73 H (0.20-0.40) mg/dL AST 80 H (13-35) U/L Alkaline Phosphatase 473 H (41-126) U/L Albumin 3.0 L (3.8-4.9) g/dL Albumin/Globulin Ratio 0.94 L (1.60-3.17) g/dL
[2022-10-31] MEDS: IOPAMIDOL CONTRAST (ORAL USE) VIAL PO PRN ×2 (13:32→14:29)
--- NOTE | 2022-10-31 15:32 | P.PN ---
Subjective Progress Note Date: 10/31/22 Principal diagnosis: Partial bowel obstruction secondary to metastatic Breast cancer In follow-up today patient reports she is tolerating oral intake, she has had bowel movements. Objective - Vital Signs Vital signs: Vital Signs Temp 97.6 F 10/31/22 07:23 Pulse 63 10/31/22 07:23 Resp 16 10/31/22 07:23 BP 95/60 10/31/22 07:23 Pulse Ox 96 10/31/22 07:23 FiO2 Intake & Output 10/30/22 10/31/22 10/31/22 18:59 06:59 18:59 Intake Total 350 Balance 350 Intake: Oral 350 Other: Voiding Method Toilet Toilet # Voids 2 # Bowel Movements 0 - Constitutional General appearance: Present: average body habitus, cooperative, no acute distress - EENT Eyes: Present: anicteric sclerae, EOMI ENT: Present: hearing grossly normal - Respiratory Details: Respirations even and unlabored at rest - Cardiovascular Details: Skin warm and dry to the touch - Neurologic Neurologic: Present: CNII-XII intact (Grossly) - Musculoskeletal Musculoskeletal: Present: strength equal bilaterally - Psychiatric Psychiatric: Present: A&O x's 3, appropriate affect, intact judgment & insight - Labs CBC & Chem 7: 10/31/22 05:58 10/31/22 05:58 Labs: Abnormal Lab Results - Last 24 Hours (Table) 10/30/22 10/31/22 10/31/22 Range/Units 07:30 05:58 05:58 WBC 2.95 L (4.50-10.00) X 10*3/uL RBC 2.93 L (4.10-5.20) X 10*6/uL Hgb 11.1 L (12.0-15.0) g/dL Hct 33.5 L (37.2-46.3) % MCV 114.3 H (80.0-97.0) fL MCH 37.9 H (27.0-32.0) pg Plt Count 95 L (140-440) X 10*3/uL Neutrophils # 1.49 L (1.80-7.70) X 10*3/uL Monocytes # 0.19 L (0.20-1.00) X 10*3/uL Total Bilirubin 1.40 H (0.30-1.20) mg/dL Conjugated Bilirubin 0.73 H (0.20-0.40) mg/dL AST 80 H (13-35) U/L Alkaline Phosphatase 473 H (41-126) U/L Albumin 3.0 L (3.8-4.9) g/dL Albumin/Globulin Ratio 0.94 L (1.60-3.17) g/dL Procalcitonin 0.15 H (0.02-0.09) ng/mL Assessment and Plan (1) Large bowel obstruction Current Visit: Yes Status: Acute Priority: High Code(s): K56.609 - UNSP IN TESTNL OBST, UNSP TO PARTIAL VERSUS COMPLETE OBST SNOMED Code(s): 284599854 (2) Breast carcinoma Current Visit: Yes Status: Acute Priority: High Code(s): C50.919 - MALIGNANT NEOPLASM OF UNSP SITE OF UNSPECIFIED FEMALE BREAST SNOMED Code(s): 933000004 Plan: Partial bowel obstruction secondary to metastatic disease -Patient has been seen by the Surgeon -Patient is reporting tolerance of oral intake without vomiting -Patient does report bowel movement -Pending Surgical assessment patient today for recommendations and plan Metastatic breast cancer -Progression on current treatment -Plans to initiate new therapy. There are several to discuss -Will get patient a sooner appointment in the office
--- NOTE | 2022-10-31 15:45 | CT ---
EXAMINATION TYPE: CT abdomen pelvis w con DATE OF EXAM: 10/31/2022 COMPARISON: 10/28/2022 INDICATION: Abdomen Pain. Metastatic breast CA. DLP: 1279 mGycm, Automated exposure control for dose reduction was used. CONTRAST: 100cc mL of Isovue 300. Study performed with Oral Contrast TECHNIQUE: Axial images were obtained from above the diaphragm to the pubic rami in the axial plane a t 5 mm thick sections. Reconstructed images are reviewed on the computer in the coronal plane. FINDINGS: Limited CT sections are obtained the lung bases. There is a small right pleural effusion. Some compr essive atelectasis is adjacent.. CT ABDOMEN: Free fluid is within the abdomen and mesentery adjacent to the liver and to lesser degree the spleen. Some additional mesenteric fluid is present. Fluid is in the left paracolic gutter. Ther e is free fluid through the pelvis. Liver: Liver is very heterogenous with multiple ill-defined hypodensities compatible with metastatic disease. Spleen: Enlarged slightly patchy contrast distribution. This appears more homogenous on the delayed i mages. Pancreas: Normal Adrenal glands: The adrenal glands are normal. Gallbladder: Normal Kidneys: No masses are evident. No hydronephrosis is present. No cysts are present. Delayed images were obtained through the kidneys, which remain unremarkable. Aorta: Vascular calcification is within the aorta. Inferior vena cava: Normal. CT PELVIS: Thickened segment of mid transverse colon is identified, series 7 image 27. However, previous obstruc tion is not evident. No dilated proximal colon is evident. There are fecal debris or distal to this f ocal area of narrowing within the transverse colon. There are loops of bowel which are incompletely d istended or lack oral contrast limiting their evaluation. Appendix: Normal as visualized. Urinary bladder: Normal as visualized. Genitourinary structures: Uterus appears normal. Left adnexa may have follicles. Right ovary appears within normal limits. Osseous structures: Diffuse sclerotic lesions are again evident. IMPRESSIONS: 1. Multiple metastatic lesions throughout the liver. 2. Splenomegaly 3. Ascites within the abdomen and pelvis. 4. More normal-appearing loops of bowel with contrast and without contrast. Prominent colon is dimini shed over the interval. The area of thickening within the mid transverse colon appears more focal wit hout obstruction.
[2022-10-31] MEDS ORDERED: HYDROcodone/APAP 7.5-325MG 1 EACH TAB PO PRN (16:27)
--- NOTE | 2022-10-31 17:02 | XR ---
EXAMINATION TYPE: XR chest 1V portable DATE OF EXAM: 10/31/2022 Comparison: 07/26/2021 Clinical History: 42-year-old female pneumonia Findings: Heart normal size. Aorta and pulmonary vasculature within normal limits. Postsurgical clips projectin g over the mediastinum and lower right chest. Trace right pleural effusion. Patchy right basilar opac ity. Impression: Small right pleural effusion with adjacent atelectasis and/or consolidation.
--- NOTE | 2022-10-31 18:20 | P.PN ---
Subjective Progress Note Date: 10/31/22 This is a pleasant 42 years old female with a known history of right breast cancer for the last 10 years with metastasis to the liver and the lower spine. Presents because of abdominal pain patient presents because of abdominal pain started this morning, periumbilical about 10/10 in severity, nonradiating, but lacked somewhat sharp and nonspecific Associated with nausea vomiting, no blood in the bile. Last bowel movement was this morning. She denies chest pain or dyspnea. No headache weakness or numbness. No urinary complaints Patient vitals are stable Labs showing mild leukopenia and thrombocytopenia at WBCs 3.4 and platelet count 131 while hemoglobin normal. BMP is unremarkable. Bilirubin is 1.8 and AST 148 and ALT 57 which are mildly elevated. Lipase 439. CT of the abdomen and pelvis with contrast: 70 cm long segment of transverse: With circumferentially narrowing and wall thickening with adjacent to all mental disease suspect serosal involvement and secondary developing colonic ob struction. Proximal colon dilated up to 7.1 cm. Known diffuse 6 aortic O's chest metastatic disease. [id number] right and left pleural effusion and multiple known hepatic lesions relatively similar but with increasing omental and a new peritoneal disease. Patient received IV fluids, pain medication and admitted with clear liquid diet and surgery and hematology oncology consult 10/29/2022 patient is improving, she is tolerating liquid diet, her abdominal pain is improving Patient had 2 bowel movements this morning No evidence of infection Surgery input is appreciated and we'll keep monitoring for now Plan discussed with patient and she agrees 10/30/2022 Patient had 2 bowel movements yesterday morning, no bowel movement since then and today. She tolerates liquid diet and asked to be advanced however she still coming from mild epigastric tenderness Antibiotic and IV fluids on hold We will check the progression of starting the morning and check labs in the morning 80 labs reviewed and has mild pancytopenia, liver enzymes mildly elevated. 10/31/2022 Patient is seen and evaluated in follow-up this morning lethargic although arousable. Patient is tolerating diet continues with some abdominal tenderness with general surgery following. Patient has been having bowel movements and just continues with generalized fatigue and weakness. Patient concerned of follow up appointment with oncology being too far away and is currently scheduled for November 08 which is next week. Discussed with oncology and they will follow-up and discuss treatment plan moving forward at follow-up appointment. Recommend continue with current diet and slowly advance as tolerated. Patient is afebrile no reports of chest pain or shortness of breath. No reported nausea or vomiting. Review of systems: Constitutional: reports of fatigue, no fever, or chills Cardiovascular: No reports of chest pain or palpitations Respiratory: No reports of shortness of breath or cough GI: No reports of nausea, vomiting, or diarrhea, reports abdominal tenderness : No reports of dysuria or retention Neurovascular: No reports of weakness or numbness All medications have been reviewed Physical exam: GENERAL: The patient is alert and oriented x3, not in any acute distress. Well developed, well nourished. HEENT: Pupils are round and equally reacting to light. EOMI. No scleral icterus. No conjunctival pallor. Normocephalic, atraumatic. No pharyngeal erythema. No thyromegaly. CARDIOVASCULAR: S1 and S2 present. No murmurs, rubs, or gallops. PULMONARY: Chest is clear to auscultation, no wheezing . no crackles. -ABDOMEN: Soft,mild abdominal tenderness , nondistended, normoactive bowel sounds. No palpable organomegaly. MUSCULOSKELETAL: No joint swelling or deformity. EXTREMITIES: No cyanosis, clubbing, or pedal edema. NEUROLOGICAL: Gross neurological examination did not reveal any focal deficits. SKIN: No rashes. no petechiae. Assessment: Small bowel obstruction secondary to colonic lesion metastasis Leukopenia Metastatic right breast cancer to the liver and lower spine Mild jaundice and elevated liver enzymes, related to her known metastatic liver disease GI prophylaxis DVT prophylaxis Full code Plan: Recommend continue with current medications with general surgery following and has ordered repeat CT of the abdomen is patient continues to have abdominal tenderness Patient tolerating oral intake and slowly advancing as tolerated. Patient is having bowel movements Oncology following as well and has follow-up appointment arranged for next week to discuss treatment plan moving forward Patient did have one low-grade temperature overnight and will obtain chest x-ray and initiate empiric Rocephin. Recommend incentive spirometer Encouraged increased activity as tolerated Prognosis is guarded Possible Discharge in the next 24-48 hours The impression and plan of care has been dictated by Aisha Ventura, Nurse Practitioner as directed. Dr. Lincoln MD I have performed a history and examination and MDM of this patient, discussed the same with the dictator, and agree with the dictator's assessment and plan as written ,documented as a scribe. Based on total visit time, I have performed more than 50% of the visit. Objective - Vital Signs Vital signs: Vital Signs Temp 97.6 F 10/31/22 07:23 Pulse 63 10/31/22 07:23 Resp 16 10/31/22 07:23 BP 95/60 10/31/22 07:23 Pulse Ox 96 10/31/22 07:23 FiO2 Intake & Output 10/30/22 10/31/22 10/31/22 18:59 06:59 18:59 Intake Total 350 Balance 350 Intake: Oral 350 Other: Voiding Method Toilet Toilet # Voids 2 # Bowel Movements 0 - Labs CBC & Chem 7: 10/31/22 05:58 10/31/22 05:58 Labs: Abnormal Lab Results - Last 24 Hours (Table) 10/30/22 10/31/22 10/31/22 Range/Units 07:30 05:58 05:58 WBC 2.95 L (4.50-10.00) X 10*3/uL RBC 2.93 L (4.10-5.20) X 10*6/uL Hgb 11.1 L (12.0-15.0) g/dL Hct 33.5 L (37.2-46.3) % MCV 114.3 H (80.0-97.0) fL MCH 37.9 H (27.0-32.0) pg Plt Count 95 L (140-440) X 10*3/uL Neutrophils # 1.49 L (1.80-7.70) X 10*3/uL Monocytes # 0.19 L (0.20-1.00) X 10*3/uL Total Bilirubin 1.40 H (0.30-1.20) mg/dL Conjugated Bilirubin 0.73 H (0.20-0.40) mg/dL AST 80 H (13-35) U/L Alkaline Phosphatase 473 H (41-126) U/L Albumin 3.0 L (3.8-4.9) g/dL Albumin/Globulin Ratio 0.94 L (1.60-3.17) g/dL Procalcitonin 0.15 H (0.02-0.09) ng/mL
[2022-10-31] MEDS: ALPRAZolam 1 MG TAB PO PRN (21:11)
[2022-10-31] MEDS: HYDROmorphone 0.5 MG/0.5 ML SYRINGE IVP PRN (21:11)
[2022-11-01 01:28] VITALS: RESP 16
[2022-11-01] MEDS: HEPARIN SODIUM,PORCINE/PF 5,000 UNIT/0.5 ML SYRINGE SQ SCH (07:22)
[2022-11-01 07:29] VITALS: BP 90/58; PULSE 62; TEMP 97.9
[2022-11-01] MEDS: FAMOTIDINE 20 MG/2 ML VIAL IV SCH (08:21)
[2022-11-01 11:00] LABS: Basophils # (A) 0.02 X 10*3/uL (0.00-0.10); Basophils % (A) 0.7 %; Eosinophils # (A) 0.11 X 10*3/uL (0.04-0.35); Eosinophils % (A) 3.8 %; HCT 31.6 % (37.2-46.3); HGB 10.7 g/dL (12.0-15.0); Immature Grans, Automated 0 %; Lymphocytes # (A) 0.93 X 10*3/uL (0.90-5.00); Lymphocytes % (A) 32.5 %; MCH 38.1 pg (27.0-32.0); MCHC 33.9 g/dL (32.0-37.0); MCV 112.5 fL (80.0-97.0); Mean Platelet Volume 11.2 fL (9.5-12.2); Monocytes # (A) 0.22 X 10*3/uL (0.20-1.00); Monocytes % (A) 7.7 %; NRBC Per 100 WBC 0 /100 WBCS (0.0-0.0); Neutrophils # (A) 1.58 X 10*3/uL (1.80-7.70); Neutrophils % (A) 55.3 %; Platelet Count 91 X 10*3/uL (140-440); RBC 2.81 X 10*6/uL (4.10-5.20); RDW 13.8 % (11.5-14.5); WBC 2.86 X 10*3/uL (4.50-10.00)
[2022-11-01 11:12] LABS: African American GFR (CKD) 128.5 (60.0-200.0); Anion Gap 10.3 mmol/L (10.00-18.00); Blood Urea Nitrogen 8.4 mg/dL (9.0-27.0); Calcium 9.3 mg/dL (8.7-10.3); Carbon Dioxide 24.7 mmol/L (20.0-27.5); Non-African American GFR(CKD) 110.9 (60.0-200.0); Potassium 3.9 mmol/L (3.5-5.5)
--- NOTE | 2022-11-01 12:55 | P.PN ---
Subjective Progress Note Date: 11/01/22 CHIEF COMPLAINT: Metastatic breast cancer HISTORY OF PRESENT ILLNESS: Patient reports her abdominal pain is improved. She is tolerating full liquid diet. Denies any nausea or vomiting. She is having bowel movements. She had a computed tomography scan of abdomen and pelvis with oral and IV contrast. Results showed multiple metastatic lesions throughout the liver. Splenomegaly. Ascites within the abdomen and pelvis. More normalappearing loops of bowel with contrast and without contrast. Prominent: Is diminished over the interval. The area of thickening within the mid transverse colon appears more focal without obstruction. Afebrile. WBC is 2.86HB 10.7 platelet 91 sodium is 138 potassium 3.9 creatinine 0.6 PHYSICAL EXAM: VITAL SIGNS: Reviewed. GENERAL: Well-developed in no acute distress. ABDOMEN: Soft. Nondistended. Nontender. NEUROLOGIC: Alert and oriented. Cranial nerves II through XII grossly intact. ASSESSMENT: 1. Metastatic breast cancer 2. Leukopenia 3. Colonic lesion metastases PLAN: -Advance diet as tolerated -Patient can be discharged from surgical standpoint. No evidence of bowel obstruction on CAT scan Physician Greige Goods Examiner note has been reviewed by physician. Signing provider agrees with the documented findings, assessment, and plan of care. Objective - Vital Signs Vital signs: Vital Signs Temp 97.9 F 11/01/22 07:14 Pulse 62 11/01/22 07:14 Resp 16 11/01/22 07:14 BP 90/58 11/01/22 07:14 Pulse Ox 98 11/01/22 07:14 FiO2 Intake & Output 10/31/22 11/01/22 11/01/22 18:59 06:59 18:59 Other: Voiding Method Toilet # Voids 1 2 - Labs CBC & Chem 7: 11/01/22 06:31 11/01/22 06:31 Labs: Abnormal Lab Results - Last 24 Hours (Table) 10/31/22 10/31/22 11/01/22 Range/Units 17:03 17:03 06:31 WBC 2.86 L (4.50-10.00) X 10*3/uL RBC 2.81 L (4.10-5.20) X 10*6/uL Hgb 10.7 L (12.0-15.0) g/dL Hct 31.6 L (37.2-46.3) % MCV 112.5 H (80.0-97.0) fL MCH 38.1 H (27.0-32.0) pg Plt Count 91 L (140-440) X 10*3/uL Neutrophils # 1.58 L (1.80-7.70) X 10*3/uL ESR 60 H (0-20) mm/hr BUN (9.0-27.0) mg/dL C-Reactive Protein 1.7 H (<1.0) mg/dL 11/01/22 Range/Units 06:31 WBC (4.50-10.00) X 10*3/uL RBC (4.10-5.20) X 10*6/uL Hgb (12.0-15.0) g/dL Hct (37.2-46.3) % MCV (80.0-97.0) fL MCH (27.0-32.0) pg Plt Count (140-440) X 10*3/uL Neutrophils # (1.80-7.70) X 10*3/uL ESR (0-20) mm/hr BUN 8.4 L (9.0-27.0) mg/dL C-Reactive Protein (<1.0) mg/dL Microbiology - Last 24 Hours (Table) 10/31/22 18:28 Urine Culture - Preliminary Urine,Voided
--- NOTE | 2022-11-01 20:00 | P.DS ---
Providers Date of admission: 10/28/22 10:30 Expected date of discharge: 11/01/22 Attending physician: Lizandro Schneider MD Consults: 10/28/22 10:25 Consult Physician Urgent Consulting Provider: Ronn Hickey Consult Reason/Comments: Breast cancer patient, disease progression on CT abd/pelvis Do you want consulting provider notified?: Yes Consult Physician Urgent Consulting Provider: Fab Weiss Consult Reason/Comments: Developing colonic obstruction Do you want consulting provider notified?: Yes 10/31/22 16:25 Consult Physician Routine Consulting Provider: Travis Harkins Consult Reason/Comments: low grade fever sepsis Do you want consulting provider notified?: Yes Primary care physician: Stated None Hospital Course: Final diagnosis Small bowel obstruction secondary to colonic lesion metastasis Leukopenia Metastatic right breast cancer to the liver and lower spine Mild jaundice and elevated liver enzymes, related to her known metastatic liver disease GI prophylaxis DVT prophylaxis Full code Discharge disposition Patient is being discharged in a stable condition with guarded prognosis to home. Patient will follow-up with Dr. Tinoco in the outpatient setting upon discharge. Patient is to continue with oral Augmentin twice daily for the next 1 week and close outpatient follow-up with oncology as scheduled. Total time taken is greater than 35 minutes. Hospital course This is a 42-year-old female who was recently admitted with abdominal pain with concerns of small bowel obstruction and being closely monitored by general surgery. Patient also being followed by oncology and will follow-up outpatient to discuss further treatment plans moving forward. Patient was evaluated by surgery with no plans of surgical intervention and continued on diet to advance slowly as tolerated. Patient is having bowel movements and reports improvement in abdominal pain. Please refer to other consultation notes for further HPI. Patient was briefly evaluated by infectious disease with concerns of low white count and 1 low-grade temp and will be started on empiric Augmentin twice daily for 1 week. Patient is afebrile. Currently no reports of chest pain, shortness of breath, or palpitations. Patient is afebrile. No reports of nausea or vomiting and patient is tolerating diet. Patient will be discharged home today. Guarded prognosis Physical exam: Gen: This is a 42-year-old female who is awake, alert and oriented 3, thin built, appears flat and depressed HEENT: Head is atraumatic, normocephalic. Pupils equal, round. Sclerae is anic teric. NECK: Supple. No JVD. No lymphadenopathy. No thyromegaly. LUNGS: Clear to auscultation. No wheezes or rhonchi. No intercostal retractions. HEART: Regular rate and rhythm. No murmur. ABDOMEN: Soft. Bowel sounds are present. No masses. No tenderness. EXTREMITIES: No pedal edema. No calf tenderness. NEUROLOGICAL: Patient is awake, alert and oriented x3. Cranial nerves 2 through 12 are grossly intact. Please refer to medication reconciliation sheet for a list of medications. The impression and plan of care has been dictated by Aisha Ventura, Nurse Practitioner as directed. Dr. Lincoln MD I have performed a history and examination and MDM of this patient, discussed the same with the dictator, and agree with the dictator's assessment and plan as written ,documented as a scribe. Based on total visit time, I have performed more than 50% of the visit. Patient Condition at Discharge: Fair Plan - Discharge Summary Discharge Rx Participant: No New Discharge Prescriptions: New Amoxic-Pot Clav 875-125Mg [Augmentin 875-125] 1 tab PO Q12HR 7 Days #14 tab Continue Hydrocodone/Acetaminophen [[place] 7.5-325] 1 tab PO Q4H PRN PRN Reason: Pain ALPRAZolam [Xanax] 1 mg PO HS [place] 1 dose IV Q21D Discharge Medication List ALPRAZolam [Xanax] 1 mg PO HS 02/08/19 [History] Hydrocodone/Acetaminophen [[place] 7.5-325] 1 tab PO Q4H PRN 02/08/19 [History] Enhertu 1 dose IV Q21D 10/28/22 [History] Amoxic-Pot Clav 875-125Mg [Augmentin 875-125] 1 tab PO Q12HR 7 Days #14 tab 11/01/22 [Rx] Follow up Appointment(s)/Referral(s): Ronn Hickey MD [STAFF PHYSICIAN] - 11/02/22 8:30 am Fab Weiss MD [STAFF PHYSICIAN] - 11/11/22 9:00 am Activity/Diet/Wound Care/Special Instructions: Activity Limited until follow-up Follow-up with oncology next week at your scheduled appointment to discuss treatment plan moving forward Continue current diet and slowly advance as tolerated Continue bowel regimen and stool softeners as needed if continuing to take narcotics Discharge Disposition: HOME SELF-CARE
== END 2022-11-01 11:37 | disposition home or self-care (01) ==
LOC: EC 08:15 → INTOOBSV 10:30 → 5NMEDONC 10:30 → UNDODISIN 11-01 11:37
PROVIDERS: ADMIT Internal Medicine; ATTEND Internal Medicine
DX: K56.600 Partial intestinal obstruction, unspecified as to cause (principal); C50.911 Malignant neoplasm of unspecified site of right female breast; C78.7 Secondary malignant neoplasm of liver and intrahepatic bile duct; C79.51 Secondary malignant neoplasm of bone; D69.6 Thrombocytopenia, unspecified; F41.9 Anxiety disorder, unspecified; J91.0 Malignant pleural effusion; R16.1 Splenomegaly, not elsewhere classified; D61.818 Other pancytopenia; I70.0 Atherosclerosis of aorta; Z79.60 Long term (current) use of unspecified immunomodulators and immunosuppressants; Z79.899 Other long term (current) drug therapy; Z79.891 Long term (current) use of opiate analgesic; Z98.84 Bariatric surgery status; Z87.891 Personal history of nicotine dependence; Z90.11 Acquired absence of right breast and nipple
CPT/HCPCS: 96376 ×6; 96366 ×2; 96367; 96372 ×2; 96375 ×2; 96365; 96361; 99285; 36415; 80053; 80048 ×4; 80076 ×3; 85652; 82150; 83605; 83690; 85025 ×5; 86140; 81001; 87086; 84145; 71045; 74177 ×2; G0378 ×5; J2543; J2765; J0696 ×2; J1170 ×5; J1885; Q9967 ×2; J1644 ×2; 96374

== ENCOUNTER → 2022-12-13 | Outpatient (CLI) | payer MEDICARE ==
[2022-12-13 10:07] LABS: African American GFR (CKD) >90 (>60 ml/min/1.73 sqM); Blood Urea Nitrogen 9 mg/dL (7-17); Non-African American GFR(CKD) >90 (>60 ml/min/1.73 sqM)
--- NOTE | 2022-12-13 12:40 | CT ---
EXAMINATION TYPE: CT ChestAbdPelvis w con CT DLP: 528.40 mGycm, Automated exposure control for dose reduction was used. DATE OF EXAM: 12/13/2022 11:46 AM COMPARISON: 10/31/2022 CLINICAL INDICATION:Female, 42 years old with history of C50.411 Breast cancer; PHH, Breast ca, follo w up Technique: Multiple axial images of the chest, abdomen, and pelvis were obtained. Two-dimensional cor onal and sagittal reconstructions were obtained. Contrast used:100 mL of Isovue 300 with IV Contrast, Oral contrast used: with Oral Contrast Findings: CHEST: LUNGS/ PLEURA: No focal consolidation, pneumothorax or pleural effusion. No new or enlarging pulmonar y nodules visualized. Decrease in right pleural effusion now resolved from 11/12/2022. AIRWAY: Patent and unremarkable. HEART: Size within normal limits. MEDIASTINUM: No gross evidence of adenopathy. VASCULATURE: No aortic aneurysm. SOFT TISSUES/LYMPH NODES: Postsurgical changes to the breasts. No increased soft tissue nodularity vi sualized. LOWER NECK: No significant findings. ABDOMEN: ABDOMEN LIVER: Multiple abnormal appearing liver lesions as seen on prior. Somewhat nodular contour to liver. GALLBLADDER AND BILE DUCTS: Unremarkable. PANCREAS: Unremarkable. SPLEEN: Unremarkable. ADRENAL GLANDS: Unremarkable. KIDNEYS AND URETERS: No evidence of hydronephrosis or renal calculus. The ureters are unremarkable. PELVIS BLADDER: Unremarkable REPRODUCTIVE: Unremarkable. ABDOMEN & PELVIS STOMACH AND BOWEL: No evidence of bowel obstruction. Postsurgical change the gastric lumen. No bowel wall thickening identified. PERITONEUM: No evidence of pneumoperitoneum. Small amount of free fluid is seen within the pelvis. VASCULATURE: No evidence of aortic aneurysm. LYMPH NODES: No gross evidence for lymphadenopathy. SOFT TISSUE/ABDOMINAL WALL: Surgical hiram along the anterior abdominal wall. MUSCULOSKELETAL: No acute osseous abnormalities scattered osseous2 osteoblastic lesions are seen and appear relatively stable when compared to 10/31/2022. IMPRESSION: 1. Similar metastatic disease findings within the liver and throughout the osseous structures. No ev idence for acute abdominal or acute thoracic process. 2. Resolution of right pleural effusion from prior. 3. Decrease in ascites from prior.
== END | disposition home or self-care (01) ==
LOC: RADCTMAIN 09:24
PROVIDERS: ATTEND Internal Medicine Hematology & Oncology
DX: C78.7 Secondary malignant neoplasm of liver and intrahepatic bile duct (principal); C50.411 Malignant neoplasm of upper-outer quadrant of right female breast; B00.9 Herpesviral infection, unspecified; R18.8 Other ascites; Z85.3 Personal history of malignant neoplasm of breast
CPT/HCPCS: 82565; 84520; 71260; 74177; 36415; Q9967

== ENCOUNTER → 2023-03-15 | Outpatient (CLI) | payer MEDICARE ==
[2023-03-15 10:26] VITALS: BP 124/80; PULSE 74; RESP 16; TEMP 98.4
== END ==
LOC: PROCWHC3 10:01
PROVIDERS: ATTEND Internal Medicine Hematology & Oncology
DX: C50.411 Malignant neoplasm of upper-outer quadrant of right female breast (principal)
CPT/HCPCS: 96402; J1950

== ENCOUNTER → 2023-03-31 | Outpatient (CLI) | payer MEDICARE ==
[2023-03-31 15:13] LABS: African American GFR (CKD) >90 (>60 ml/min/1.73 sqM); Blood Urea Nitrogen 13 mg/dL (7-17); Non-African American GFR(CKD) >90 (>60 ml/min/1.73 sqM)
--- NOTE | 2023-04-03 09:43 | CT ---
EXAMINATION TYPE: CT ChestAbdPelvis w con DATE OF EXAM: 03/31/2023 COMPARISON: 12/13/2022 HISTORY: Follow up for hx of breast and liver CA. CT DLP: 656.3 mGycm Automated exposure control for dose reduction was used. CONTRAST: CT scan of the chest, abdomen and pelvis is performed with Oral Contrast and with IV Contrast, patien t injected with 100 ml mL of Isovue 300. FINDINGS: LUNGS: The lungs are grossly clear, there is no concerning parenchymal mass or nodule identified. T here is no pleural effusion or pneumothorax seen. The tracheobronchial tree is patent. MEDIASTINUM: There are no greater than 1 cm hilar or mediastinal lymph nodes. No pericardial effusi on is seen. OTHER: No additional significant abnormality is seen. LIVER/GB: Liver is nodular in contour and contains multiple hypodense lesions largest seen at the lev el of the dome of the liver measuring 2.6 x 3.6 cm on the previous and now measuring 3.8 x 2.9 cm. Ad ditional right hepatic lobe lesion for reference noted measuring 2.6 x 2.1 cm and previously measurin g 2.2 x 1.8 cm. Small amount of adjacent ascites noted. PANCREAS: No significant abnormality is seen. SPLEEN: Enlarged measuring 13.5 cm. ADRENALS: No significant abnormality is seen. KIDNEYS: No significant abnormality is seen. BOWEL: Bowel gas pattern is nonspecific with no obstruction. Small hiatal hernia with distal esophag eal wall thickening correlate for reflux esophagitis. LYMPH NODES: No greater than 1 cm abdominal or pelvic lymph nodes are appreciated. OSSEOUS STRUCTURES: Diffuse skeletal changes are stable compatible with metastases. OTHER: There remains a stranding within the anterior mesentery with multiple small subcentimeter nodu les noted particularly seen on image 69 which could represent peritoneal implant but stable. Bilateral ovary enlargement.. Aorta normal caliber. Trace amount of ascites adjacent to the liver. A previous surgery noted involvi ng the anterior abdominal wall. Calcification in the posterior gluteal region likely related to a gra nuloma. IMPRESSION: 1. There is minimal interval incremental increase in size of the largest hepatic lesions as discussed above. 2. Splenomegaly. 3. Stable osseous metastases. 4. Omental and peritoneal stranding with micronodules are stable. Carcinomatosis in the differential diagnosis. 5. Bilateral ovarian/adnexal prominence recommend pelvic ultrasound.
== END | disposition home or self-care (01) ==
LOC: RADCTMAIN 14:25
PROVIDERS: ATTEND Internal Medicine Hematology & Oncology
DX: C79.51 Secondary malignant neoplasm of bone (principal); C50.411 Malignant neoplasm of upper-outer quadrant of right female breast; B00.9 Herpesviral infection, unspecified; R16.1 Splenomegaly, not elsewhere classified; Z85.05 Personal history of malignant neoplasm of liver
CPT/HCPCS: 82565; 84520; 71260; 74177; 36415; Q9967

== ENCOUNTER → 2023-05-25 | Outpatient (CLI) | payer MEDICARE ==
[2023-05-25 09:34] LABS: African American GFR (CKD) >90 (>60 ml/min/1.73 sqM); Blood Urea Nitrogen 12 mg/dL (7-17); Non-African American GFR(CKD) >90 (>60 ml/min/1.73 sqM)
--- NOTE | 2023-05-25 11:04 | CT ---
EXAMINATION: CT CHEST, ABDOMEN AND PELVIS WITH IV CONTRAST DATE OF EXAMINATION: 05/25/2023. COMPARISON: N6 2022.. INDICATION: Breast cancer. PROCEDURE: Axial CT of the chest, abdomen and pelvis was performed following the intravenous adminis tration of 100 ml Isovue 370. Coronal and sagittal reformats were performed. CT dose lowering techni ques were used, to include: automated exposure control, adjustment for patient size, and/or use of it erative reconstruction. FINDINGS: CHEST: CHEST WALL: Prior surgical changes are seen within the chest wall bilaterally which appears to be TRA M flaps that are unchanged. Mediastinum and Char: There is no axillary, mediastinal or hilar lymphadenopathy. Pleural and Pericardial spaces: Trace right pleural effusion. Cardiovascular: The thoracic aorta is normal in size without evidence of aneurysm or dissection. Pulmonary Artery: There are no central pulmonary arterial filling defects. Lung Parenchyma and Airways: The lungs are clear. ABDOMEN: Liver and Biliary system: Diffuse lobular contour to the liver is unchanged. Heterogeneous masslike density seen throughout the liver anomaly in the right lobe are unchanged. Scattered areas of calcifi cation or prior treatment changes also appear similar. Small caliber recanalized umbilical vein is un changed.. Adrenal glands: Normal. Kidneys and ureters: Normal. Spleen: Unchanged splenomegaly. Pancreas: Normal. Gallbladder: Underdistended and not well evaluated.. Lymph nodes, Peritoneum and mesentery: There is no mesenteric or retroperitoneal lymphadenopathy. Mi ld stranding in the mesentery is unchanged. Gastrointestinal tract: There are no dilated loops of bowel or free intraperitoneal air. . The appe ndix is normal. Aorta/IVC: Aorta normal. No aortic aneurysm or dissection. IVC normal. Abdominal wall: Normal. PELVIS: Fluid: There is no free fluid in the pelvis. Lymph Nodes: There is no pelvic or inguinal lymphadenopathy.. Urinary bladder: Normal. BONES: Osseous sclerotic metastatic disease appears not significantly changed since the previous exa mination.. ADDITIONAL SIGNIFICANT FINDINGS: None. IMPRESSION: 1. No significant change in the appearance of the ill-defined metastatic disease within the liver and cirrhosis. Next line 2. No significant change in the omental nodularity which would suggest carcinomatosis. 3. No significant change in the osteosclerotic metastatic disease. 4. Trace right pleural effusion. 5. Trace ascites around the liver.
== END | disposition home or self-care (01) ==
LOC: RADCTMAIN 08:41
PROVIDERS: ATTEND Internal Medicine Hematology & Oncology
DX: C78.7 Secondary malignant neoplasm of liver and intrahepatic bile duct (principal); J90 Pleural effusion, not elsewhere classified; C79.51 Secondary malignant neoplasm of bone; C50.411 Malignant neoplasm of upper-outer quadrant of right female breast; K74.60 Unspecified cirrhosis of liver; R18.8 Other ascites
CPT/HCPCS: 82565; 84520; 71260; 74177; 36415; Q9967

== ENCOUNTER → 2023-06-15 | Outpatient (CLI) | payer MEDICARE ==
[2023-06-15 13:02] VITALS: BP 126/70; PULSE 70; RESP 16; TEMP 98.7
[2023-06-15] MEDS: LEUPROLIDE ACET 11.25MG SYRGKIT IM NR (13:08)
== END ==
LOC: PROCWHC3 12:45
PROVIDERS: ATTEND Internal Medicine Hematology & Oncology
DX: C50.411 Malignant neoplasm of upper-outer quadrant of right female breast (principal)
CPT/HCPCS: 96402; J1950

== ENCOUNTER → 2023-07-26 | Outpatient (CLI) | payer MEDICARE ==
[2023-07-26 12:09] LABS: African American GFR (CKD) >90 (>60 ml/min/1.73 sqM); Blood Urea Nitrogen 9 mg/dL (7-17); Non-African American GFR(CKD) >90 (>60 ml/min/1.73 sqM)
--- NOTE | 2023-07-28 12:04 | CT ---
EXAMINATION TYPE: CT ChestAbdPelvis w con DATE OF EXAM: 07/26/2023 INDICATION: f/u breast ca COMPARISON: 05/25/2023 CT DLP: 526.7 mGycm CONTRAST: Performed with Oral Contrast and with IV Contrast, patient injected with 100ml mL of Isovue 300. TECHNIQUE: Axial images at 5 mm thick sections. Reconstructed images in the coronal plane. Delayed images through the kidneys. FINDINGS: CT CHEST: Portion of the thyroid visualized is normal. Small right pleural effusion is present. No enlarged mediastinal or hilar adenopathy is evident. Small left axillary lymphadenopathy is presen t. The ascending aorta diameter at the level of the main pulmonary artery is 2.7 cm. The main pulmonary artery diameter at the bifurcation is 2.[address] ABDOMEN: Liver: Large masses within the right lobe liver. Borders are indistinct. Additional smaller confluent lesions are present. Findings are compatible metastatic disease. This has worsened from comparison. Spleen: This is a somewhat patchy appearance. This may be due to the phase of contrast. Delayed image s appear more homogenous without suspicious masses. Pancreas: Normal Adrenal glands: The adrenal glands are normal. Gallbladder: Not identified . Tiny decompressed gallbladder may be adjacent to the anterior right lo be liver. Kidneys: No masses are evident. No hydronephrosis is present. No cysts are present. Delayed images were obtained through the kidneys, which remain unremarkable. Aorta: Normal Inferior vena cava: Normal. CT PELVIS: Loops of bowel within the abdomen and pelvis are normal. There are loops of bowel which are incom pletely distended or lack oral contrast limiting their evaluation. Appendix: Normal as visualized. Urinary bladder: Normal. Genitourinary structures: Uterus appears normal. Right ovary is somewhat prominent. Suspicious mass o r cyst is not identified. Uterine fibroid could be considered within the differential appearance is s table from comparison. Osseous structures: Scattered small sclerotic lesions are within the sacrum. Couple of small lytic ar eas may be within the pubic symphysis bilaterally. Sclerotic areas within the lumbar spine vertebral bodies. Thoracic vertebral bodies likely is scattered sclerotic areas. There may be some sclerotic ar eas within the upper right ribs. Lower left sclerotic rib lesions identified. IMPRESSION: 1. Worsening metastatic involvement of the liver. 2. Multiple metastatic lesions throughout the osseous structures discussed above. This appears to be increasing
== END | disposition home or self-care (01) ==
LOC: RADCTMAIN 11:32
PROVIDERS: ATTEND Internal Medicine Hematology & Oncology
DX: C78.7 Secondary malignant neoplasm of liver and intrahepatic bile duct (principal); C79.51 Secondary malignant neoplasm of bone; C50.411 Malignant neoplasm of upper-outer quadrant of right female breast; B00.9 Herpesviral infection, unspecified
CPT/HCPCS: 82565; 84520; 71260; 74177; 36415; Q9967

== ENCOUNTER 2023-08-28 22:57 | Emergency (ER) | payer MEDICARE ==
[2023-08-28 23:06] VITALS: RESP 16; TEMP 98.8
--- NOTE | 2023-08-28 23:29 | ED ---
Abdominal Pain HPI - General Chief Complaint: Abdominal Pain Stated Complaint: abd pain-sent by pcp Time Seen by Provider: 08/28/23 23:07 Source: patient Mode of arrival: wheelchair Limitations: no limitations - History of Present Illness Initial Comments: 43-year-old female currently undergoing treatment for metastatic breast cancer presenting with chief complaint of abdominal pain. Patient states that she has not had a bowel movement over the last 3 days. Today she thinks she may have had decreased flatus. She denies any nausea or vomiting. States that this feels similar to a previous bowel obstruction. Patient states that this feels similar to a previous bowel obstruction. No fevers. No urinary symptoms. No hematochezia or melena. No chest pain or difficulty breathing. - Related Data Home Medications Medication Instructions Recorded Confirmed ALPRAZolam [Xanax] 1 mg PO HS 02/08/19 08/11/23 Hydrocodone/Acetaminophen [Casar 1 tab PO Q4H PRN 02/08/19 08/11/23 7.5-325] Allergies Allergy/AdvReac Type Severity Reaction Status Date / Time No Known Allergies Allergy Verified 08/28/23 09:25 Review of Systems ROS Statement: Those systems with pertinent positive or pertinent negative responses have been documented in the HPI. ROS Other: All systems not noted in ROS Statement are negative. Past Medical History Past Medical History: Cancer Additional Past Medical History / Comment(s): plueral effusion, R breast cancer, liver and lower spine cancer. PANCREATITIS. History of Any Multi-Drug Resistant Organisms: None Reported Past Surgical History: Bariatric Surgery, Breast Surgery Additional Past Surgical History / Comment(s): double mastecomy, R ankle surg, carpel tunnel adrián Past Anesthesia/Blood Transfusion Reactions: No Reported Reaction Past Psychological History: Anxiety Smoking Status: Former smoker - Past Family History Mother Family Medical History: No Reported History General Exam Limitations: no limitations General appearance: alert, in no apparent distress Head exam: Present: atraumatic, normocephalic Eye exam: Present: normal appearance Neck exam: Present: normal inspection Respiratory exam: Present: normal lung sounds bilaterally. Absent: respiratory distress, wheezes, rales, rhonchi, stridor Cardiovascular Exam: Present: regular rate, normal rhythm, normal heart sounds. Absent: systolic murmur, diastolic murmur, rubs, gallop, clicks GI/Abdominal exam: Present: soft, tenderness, guarding. Absent: distended, rebound, rigid Neurological exam: Present: oriented X3 Psychiatric exam: Present: normal affect, normal mood Skin exam: Present: warm, dry Course Vital Signs 08/28/23 23:01 Temperature 98.8 F Pulse Rate 85 Respiratory 16 Rate Blood Pressure 105/74 O2 Sat by Pulse 97 Oximetry Medical Decision Making - Medical Decision Making Was pt. sent in by a medical professional or institution (, PA, [facility], urgent care, hospital, or prison...) When possible be specific @ -No Did you speak to anyone other than the patient for history (EMS, parent, family, police, friend...)? What history was obtained from this source @ -No Did you review nursing and triage notes (agree or disagree)? Why? @ -I reviewed and agree with nursing and triage notes Were old charts reviewed (outside hosp., previous admission, EMS record, old EKG, old radiological studies, urgent care reports/EKG's, prison records)? Report findings @ -No old charts were reviewed Differential Diagnosis (chest pain, altered mental status, abdominal pain women, abdominal pain men, vaginal bleeding, weakness, fever, dyspnea, syncope, headache, dizziness, GI bleed, back pain, seizure, CVA, palpatations, mental health, musculoskeletal)? @ -MDM Differential Dyspnea: Coronary syndrome, arrhythmia, tamponade, asthma, COPD, pulmonary embolism, pneumonia, pneumothorax, pulmonary effusion, anaphylaxis, diabetic ketoacidosis, flailed chest, pulmonary contusion, diaphragmatic rupture, anemia, neuromuscular this is not meant to be an all-inclusive list. EKG interpreted by me (3pts min.). @ -As above X-rays interpreted by me (1pt min.). @ -None done CT interpreted by me (1pt min.). @ -CT shows multiple hepatic metastases are present to a similar degree as the CT scan from July 26, 2023. Underlying hepatic cirrhotic morphology is developing. Atrophy of the left hepatic lobe. Prominent right ovary measures 2.6 x 2.5 cm. Mild free fluid in the pelvis. Pelvic ultrasound correlation recommended. Osseous metastasis. Small right pleural effusion. U/S interpreted by me (1pt. min.). @ -Ultrasound shows left ovary not identified, otherwise unremarkable pelvic ultrasound. Pelvic ascites. What testing was considered but not performed or refused? (CT, X-rays, U/S, labs )? Why? @ -None What meds were considered but not given or refused? Why? @ -None Did you discuss the management of the patient with other professionals (professionals i.e. , PA, [facility], lab, RT, psych nurse, hospice social worker, manager research and development, teacher, classifications officer cc/cm, manager case)? Give summary @ -No Was smoking cessation discussed for >3mins.? @ -No Was critical care preformed (if so, how long)? @ -No Were there social determinants of health that impacted care today? How? (Homelessness, low income, unemployed, alcoholism, drug addiction, transportation, low edu. Level, literacy, decrease access to med. care, group home, rehab)? @ -No Was there de-escalation of care discussed even if they declined (Discuss DNR or withdrawal of care, Hospice)? DNR status @ -No What co-morbidities impacted this encounter? (DM, HTN, Smoking, COPD, CAD, Cancer, CVA, ARF, Chemo, Hep., AIDS, mental health diagnosis, sleep apnea, morbid obesity)? @ -Stage IV breast cancer Was patient admitted / discharged? Hospital course, mention meds given and route, prescriptions, significant lab abnormalities, going to OR and other pertinent info. @ -43-year-old female with metastatic breast cancer presenting with chief complaint of abdominal pain. Concern for bowel obstruction. History and physical exam were conducted. WBC 40.8, patient is on zarxio to increase her white blood cell count. AST 124 ALT 66 alkaline phosphatase 359, attributed to metastasis of the liver. Urine shows no infectious process. CT shows an e nlarged right ovary. Ultrasound shows no acute findings. I discussed these results with the patient. I informed her that there is a chance given that she has some ascites that she may be developing peritonitis. I offered admission. Patient declined, would prefer discharge home. She is provided with polyethylene glycol to help with her symptoms of constipation. Discharged home. Follow-up with PCP. Report back to ER with any new or worsening symptoms. Discussed return parameters and answered all questions. Patient conveyed verbal understanding and agreed to the plan. I discussed this case in detail with my attending Dr. Lehman Undiagnosed new problem with uncertain prognosis? @ -No Drug Therapy requiring intensive monitoring for toxicity (Heparin, Nitro, Insulin, Cardizem)? @ -No Were any procedures done? @ -No Diagnosis/symptom? @ -Abdominal pain, constipation Acute, or Chronic, or Acute on Chronic? @ -Acute Uncomplicated (without systemic symptoms) or Complicated (systemic symptoms)? @ -Uncomplicated Side effects of treatment? @ -No Exacerbation, Progression, or Severe Exacerbation? @ -No - Lab Data Result diagrams: 08/28/23 23:30 08/28/23 23:30 Lab Results 08/28/23 08/28/23 08/28/23 Range/Units 23:30 23:30 23:30 WBC 40.8 H (3.8-10.6) k/uL RBC 2.85 L (3.80-5.40) m/uL Hgb 10.3 L (11.4-16.0) gm/dL Hct 31.6 L (34.0-46.0) % MCV 110.9 H (80.0-100.0) fL MCH 36.1 H (25.0-35.0) pg MCHC 32.6 (31.0-37.0) g/dL RDW 14.2 (11.5-15.5) % Plt Count 202 (150-450) k/uL MPV 8.0 Neutrophils % 88 % Lymphocytes % 8 % Monocytes % 3 % Eosinophils % 0 % Basophils % 0 % Neutrophils # 36.0 H (1.3-7.7) k/uL Lymphocytes # 3.1 (1.0-4.8) k/uL Monocytes # 1.2 H (0-1.0) k/uL Eosinophils # 0.1 (0-0.7) k/uL Basophils # 0.1 (0-0.2) k/uL Manual Slide Review Performed Poikilocytosis (manual Present Anisocytosis (manual) Present Macrocytosis Marked A Sodium 140 (137-145) mmol/L Potassium 3.5 (3.5-5.1) mmol/L Chloride 108 H (98-107) mmol/L Carbon Dioxide 29 (22-30) mmol/L Anion Gap 3 mmol/L BUN 4 L (7-17) mg/dL Creatinine 0.53 (0.52-1.04) mg/dL Est GFR (CKD-EPI)AfAm >90 (>60 ml/min/1.73 sqM) Est GFR (CKD-EPI)NonAf >90 (>60 ml/min/1.73 sqM) Glucose 89 (74-99) mg/dL Plasma Lactic Acid Sarmad (0.7-2.0) mmol/L Calcium 8.9 (8.4-10.2) mg/dL Total Bilirubin 1.3 (0.2-1.3) mg/dL AST 124 H (14-36) U/L ALT 66 H (4-34) U/L Alkaline Phosphatase 859 H (38-126) U/L Total Protein 7.0 (6.3-8.2) g/dL Albumin 3.3 L (3.5-5.0) g/dL Amylase 41 (30-110) U/L Lipase 96 (23-300) U/L Urine Color Colorless Urine Appearance Clear (Clear) Urine pH 7.5 (5.0-8.0) Ur Specific [place] 1.005 (1.001-1.035) Urine Protein Negative (Negative) Urine Glucose (UA) Negative (Negative) Urine Ketones Negative (Negative) Urine Blood Negative (Negative) Urine Nitrite Negative (Negative) Urine Bilirubin Negative (Negative) Urine Urobilinogen <2.0 (<2.0) mg/dL Ur Leukocyte Esterase Negative (Negative) 08/28/23 Range/Units 23:30 WBC (3.8-10.6) k/uL RBC (3.80-5.40) m/uL Hgb (11.4-16.0) gm/dL Hct (34.0-46.0) % MCV (80.0-100.0) fL MCH (25.0-35.0) pg MCHC (31.0-37.0) g/dL RDW (11.5-15.5) % Plt Count (150-450) k/uL MPV Neutrophils % % Lymphocytes % % Monocytes % % Eosinophils % % Basophils % % Neutrophils # (1.3-7.7) k/uL Lymphocytes # (1.0-4.8) k/uL Monocytes # (0-1.0) k/uL Eosinophils # (0-0.7) k/uL Basophils # (0-0.2) k/uL Manual Slide Review Poikilocytosis (manual Anisocytosis (manual) Macrocytosis Sodium (137-145) mmol/L Potassium (3.5-5.1) mmol/L Chloride (98-107) mmol/L Carbon Dioxide (22-30) mmol/L Anion Gap mmol/L BUN (7-17) mg/dL Creatinine (0.52-1.04) mg/dL Est GFR (CKD-EPI)AfAm (>60 ml/min/1.73 sqM) Est GFR (CKD-EPI)NonAf (>60 ml/min/1.73 sqM) Glucose (74-99) mg/dL Plasma Lactic Acid Sarmad 1.4 (0.7-2.0) mmol/L Calcium (8.4-10.2) mg/dL Total Bilirubin (0.2-1.3) mg/dL AST (14-36) U/L ALT (4-34) U/L Alkaline Phosphatase (38-126) U/L Total Protein (6.3-8.2) g/dL Albumin (3.5-5.0) g/dL Amylase (30-110) U/L Lipase (23-300) U/L Urine Color Urine Appearance (Clear) Urine pH (5.0-8.0) Ur Specific [place] (1.001-1.035) Urine Protein (Negative) Urine Glucose (UA) (Negative) Urine Ketones (Negative) Urine Blood (Negative) Urine Nitrite (Negative) Urine Bilirubin (Negative) Urine Urobilinogen (<2.0) mg/dL Ur Leukocyte Esterase (Negative) Disposition Clinical Impression: Abdominal pain, Constipation Disposition: HOME SELF-CARE Condition: Fair Instructions (If sedation given, give patient instructions): Abdominal Pain (ED) Additional Instructions: Follow-up with PCP and oncologist. Report back to ER with any new or worsening symptoms. Drink 8 ounces of GoLytely at a time, wait a few hours before taking another 8 ounces. Repeat until symptoms resolve Is patient prescribed a controlled substance at d/c from ED?: No Referrals: Jeronimo Mccormick DO [Primary Care Provider] - 1-2 days Time of Disposition: 02:06
[2023-08-28] MEDS: KETOROLAC 15 MG/ML 1 ML VIAL IVP STA (23:38)
[2023-08-28] MEDS: SODIUM CHLORIDE 0.9% 1,000 ML IV STA (23:40)
[2023-08-28 23:42] LABS: Basophils # (A) 0.1 k/uL (0-0.2); Basophils % (A) 0 %; Eosinophils # (A) 0.1 k/uL (0-0.7); Eosinophils % (A) 0 %; HCT 31.6 % (34.0-46.0); HGB 10.3 gm/dL (11.4-16.0); Lymphocytes # (A) 3.1 k/uL (1.0-4.8); Lymphocytes % (A) 8 %; MCH 36.1 pg (25.0-35.0); MCHC 32.6 g/dL (31.0-37.0); MCV 110.9 fL (80.0-100.0); Macrocytosis Marked; Monocytes # (A) 1.2 k/uL (0-1.0); Monocytes % (A) 3 %; Neutrophils % (A) 88 %; Platelet Count 202 k/uL (150-450); RBC 2.85 m/uL (3.80-5.40); RDW 14.2 % (11.5-15.5); WBC 40.8 k/uL (3.8-10.6)
[2023-08-28 23:51] LABS: ALT 66 U/L (4-34); AST 124 U/L (14-36); African American GFR (CKD) >90 (>60 ml/min/1.73 sqM); Albumin 3.3 g/dL (3.5-5.0); Amylase 41 U/L (30-110); Anion Gap 3 mmol/L; Blood Urea Nitrogen 4 mg/dL (7-17); Calcium 8.9 mg/dL (8.4-10.2); Carbon Dioxide 29 mmol/L (22-30); Chloride 108 mmol/L (98-107); Glucose 89 mg/dL (74-99); Lipase 96 U/L (23-300); Non-African American GFR(CKD) >90 (>60 ml/min/1.73 sqM); Potassium 3.5 mmol/L (3.5-5.1); Sodium 140 mmol/L (137-145); Total Bilirubin 1.3 mg/dL (0.2-1.3)
[2023-08-29 00:10] LABS: Alkaline Phosphatase 859 U/L (38-126)
--- NOTE | 2023-08-29 00:22 | CT ---
EXAM: CT Abdomen and Pelvis With Intravenous Contrast CLINICAL HISTORY: ITS.REASON CT Reason: abdominal pain TECHNIQUE: Axial computed tomography images of the abdomen and pelvis with intravenous contrast. CTDI is 14.8 mGy and DLP is 740.1 mGy-cm. This CT exam was performed using one or more of the following dose reduction techniques: automated exposure control, adjustment of the mA and/or kV according to patient size, and/or use of iterative reconstruction technique. COMPARISON: July 26, 2023 FINDINGS: Lung bases: Unremarkable. No mass. No consolidation. Pleural space: Small RIGHT pleural effusion. ABDOMEN: Liver: History of breast cancer. Multiple hepatic metastases are present, to a similar degree as the CT scan from July 26, 2023. Underlying hepatic cirrhotic morphology is developing. Atrophy of the LEFT hepatic lobe. Gallbladder and bile ducts: Unremarkable. No calcified stones. No ductal dilation. Pancreas: Unremarkable. No mass. No ductal dilation. Spleen: Unremarkable. No splenomegaly. Adrenals: Unremarkable. No mass. Kidneys and ureters: Unremarkable. No solid mass. No hydronephrosis. Stomach and bowel: Unremarkable. No obstruction. No mucosal thickening. PELVIS: Appendix: No findings to suggest acute appendicitis. Bladder: Unremarkable. No mass. Reproductive: Unremarkable as visualized. ABDOMEN and PELVIS: Intraperitoneal space: Mild abdominal ascites. Prominent RIGHT ovary measures 2.6 x 2.5 cm. Mild free fluid in the pelvis. Pelvic ultrasound correlation recommended. No free air. Bones/joints: Osseous metastasis. No acute fracture. No dislocation. Soft tissues: Unremarkable. Vasculature: Unremarkable. No abdominal aortic aneurysm. Lymph nodes: Unremarkable. No enlarged lymph nodes. IMPRESSION: 1. History of breast cancer. Multiple hepatic metastases are present, to a similar degree as the CT scan from July 26, 2023. Underlying hepatic cirrhotic morphology is developing. Atrophy of the LEFT hepatic lobe. 2. Prominent RIGHT ovary measures 2.6 x 2.5 cm. Mild free fluid in the pelvis. Pelvic ultrasound correlation recommended. 3. Osseous metastasis. 4. Small RIGHT pleural effusion.
[2023-08-29 00:27] LABS: Appearance,Urine Clear (Clear); Bilirubin,Urine Negative (Negative); Blood,Urine Negative (Negative); Color,Urine Colorless; Glucose,Urine (UA) Negative (Negative); Ketones,Urine Negative (Negative); Leukocyte Esterase,Urine Negative (Negative); Nitrite,Urine Negative (Negative); PH, Urine 7.5 (5.0-8.0); Protein,Urine Negative (Negative); Specific Gravity,Urine 1.005 (1.001-1.035); Urobilinogen,Urine <2.0 mg/dL (<2.0)
[2023-08-29] MEDS: HYDROmorphone 1 MG/ML 1 ML SYRINGE IVP STA (01:04)
--- NOTE | 2023-08-29 01:37 | US ---
EXAM: US Pelvis Transabdominal, Complete CLINICAL HISTORY: ITS.REASON US Reason: enlarged right ovary TECHNIQUE: Real-time complete transabdominal pelvic ultrasound with image documentation. COMPARISON: No relevant prior studies available. FINDINGS: Uterus/cervix: Endometrial stripe measures 0.6 cm. Uterus measures 7. 4 x 3.7 x 2.9 cm. No myometrial mass. Right ovary: Right ovary measures 3.5 x 3.2 x 2.8 cm. Normal blood flow. Left ovary: Left ovary is not identified. Free fluid: Pelvic ascites. Bladder: Unremarkable as visualized. Wall is normal thickness for degree of distention. IMPRESSION: 1. Left ovary not identified, otherwise unremarkable pelvic ultrasound. 2. Pelvic ascites.
[2023-08-29 02:05] LABS: Anisocytosis (M) Present
[2023-08-29 02:06] LABS: Poikilocytosis (M) Present
[2023-08-29] MEDS: PEG 3350 (236 GM/BTL) + LYTES 4,000 ML BOTTLE PO ONE (02:28)
[2023-08-29 03:06] VITALS: BP 99/56; PULSE 75
== END 2023-08-29 02:36 | disposition home or self-care (01) ==
LOC: EC 22:57
DX: K59.00 Constipation, unspecified (principal); F41.9 Anxiety disorder, unspecified; R10.84 Generalized abdominal pain; Z87.891 Personal history of nicotine dependence; Z79.899 Other long term (current) drug therapy
CPT/HCPCS: 99284 ×2; 96374 ×2; 96375 ×2; 96361 ×3; 36415; 80053; 82150; 83605; 83690; 85025; 81003; 93976; 76856; 74177; J1170; J1885; Q9967

== ENCOUNTER → 2023-09-15 | Outpatient (CLI) | payer MEDICARE ==
--- NOTE | 2023-09-15 12:36 | US ---
EXAMINATION TYPE: US abdomen complete DATE OF EXAM: 09/15/2023 COMPARISON: CT 08/28/2023 CLINICAL INDICATION: Female, 43 years old with history of C50.411 BR CA,R10.9 ABN PAIN; Liver mets/pr imary per patient. Breast cancer mets. Patient states she is bloated and unable to poop. TECHNIQUE: Multiple sonographic images of the abdomen are obtained. FINDINGS: EXAM MEASUREMENTS: Liver Length: 15.5 cm CBD: 0.3 cm Spleen: 9.0 cm Right Kidney: 10.1 x 4.6 x 5.2 cm Left Kidney: 10.8 x 4.3 x 5.2 cm CHEF FRENCH NOTES: Limited due to bowel gas Ascites visualized Pancreas: Obscured by bowel gas Liver: Innumerous multiple lesions seen throughout liver Gallbladder: Obscured by overlying bowel gas Evidence for sonographic Huston's sign: neg CBD: wnl Spleen: wnl Right Kidney: No hydronephrosis or masses seen Left Kidney: Mild hydronephrosis Upper IVC: Obscured by overlying bowel gas Abd Aorta: Prox and distal not seen The liver is heterogenous with multiple liver masses. The intrahepatic portion of the IVC and proxim al abdominal aorta are within normal limits. There is no evidence of cholelithiasis. Common bile du ct is unremarkable. The visualized portions of the pancreas are homogenous. The spleen is unremarka ble. Kidneys are symmetric with mild left hydronephrosis similar prior. No renal lesions are seen. IMPRESSION: 1. Redemonstration of findings from 08/28/2023 CT with multiple liver lesions and ascites. 2. Similar mild left hydronephrosis.
--- NOTE | 2023-09-15 12:45 | US ---
EXAMINATION TYPE: US pelvic complete DATE OF EXAM: 09/15/2023 COMPARISON: Same-day abdominal ultrasound, CT 08/28/2023. CLINICAL INDICATION: Female, 43 years old with history of C50.411 BR CA,R10.9 ABN PAIN; Liver mets/pr imary per patient. Breast cancer mets. Patient states she is bloated and unable to poop. TECHNIQUE: Transabdominal (TA). Transabdominal sonographic images of the pelvis were acquired. Pat ient declined transvaginal exam. Date of LMP: Unknown x 7 years due to medication, EXAM MEASUREMENTS: Uterus: 8.4 x 4.4 x 3.5 cm Endometrial Stripe: 0.4 cm Right Ovary: 3.9 x 2.8 x 2.7 cm Left Ovary: 2.0 x 1.2 x 1.4 cm Ascites visualized 1. Uterus: Anteverted limited visualized, not prominent masses seen 2. Endometrium: limited visualization, no thickening seen 3. Right Ovary: Enlarged compared to contralateral ovary, limited visualization 4. Left Ovary: limited visualization 5. Bilateral Adnexa: free fluid 6. Posterior cul-de-sac: free fluid IMPRESSION: 1. No evidence for acute process. 2. Endometrium within normal limits for thickness. 3. Small ascites.
== END | disposition home or self-care (01) ==
LOC: RADUSWWP 10:48
PROVIDERS: ATTEND Internal Medicine Hematology & Oncology
DX: N13.30 Unspecified hydronephrosis (principal); Z03.89 Encounter for observation for other suspected diseases and conditions ruled out; C78.7 Secondary malignant neoplasm of liver and intrahepatic bile duct; C50.411 Malignant neoplasm of upper-outer quadrant of right female breast; K76.89 Other specified diseases of liver; R18.8 Other ascites
CPT/HCPCS: 76700; 76856

== ENCOUNTER 2023-11-06 07:35 | Emergency (ER) | payer MEDICARE ==
--- NOTE | 2023-11-06 08:21 | ED ---
Abdominal Pain HPI - General Chief Complaint: Abdominal Pain Stated Complaint: abd pain,cancer pt Time Seen by Provider: 11/06/23 07:48 Source: patient, RN notes reviewed Mode of arrival: ambulatory Limitations: no limitations - History of Present Illness Initial Comments: This is a 43-year-old female who presents to the emergency department for abdominal pain. Patient has metastatic breast cancer and has been dealing with problems with constipation since July. Over the last couple of months she has also been getting a weekly paracentesis. Most recently had this done 4 days ago. Currently receiving treatment with chemotherapy every 21 days. States that last night she developed severe lower abdominal pain, which was different from pain she typically has. The pain makes her feel like she needs to have a bowel movement, however when she goes to use the restroom, almost nothing comes out. Denies any associated nausea, vomiting, fevers, or chills. She takes [place] and Dilaudid at home as needed, however this has not been effectively t reating this pain. appt catie young MD Complaint: abdominal pain - Related Data Home Medications Medication Instructions Recorded Confirmed ALPRAZolam [Xanax] 1 mg PO HS 02/08/19 11/06/23 Hydrocodone/Acetaminophen [[place] 1 tab PO Q4H PRN 02/08/19 11/06/23 7.5-325] HYDROmorphone [Dilaudid] 2 mg PO Q4H PRN 11/03/23 11/06/23 Docusate [Colace] 100 mg PO BID 11/06/23 11/06/23 Esomeprazole Magnesium [NexIUM] 40 mg PO BID 11/06/23 11/06/23 Lactulose [Cephulac] 20 gm PO HS 11/06/23 11/06/23 Lidocaine-Prilocaine Cream [Emla 1 applic TOPICAL DIRECTED PRN 11/06/23 11/06/23 Cream 2.5%/2.5%] Sennosides [Senokot] 8.6 mg PO BID 11/06/23 11/06/23 Tamoxifen Citrate [Nolvadex] 20 mg PO PC-LUNCH 11/06/23 11/06/23 polyethylene glycoL 3350 [Miralax] 17 gm PO BID 11/06/23 11/06/23 Allergies Allergy/AdvReac Type Severity Reaction Status Date / Time No Known Allergies Allergy Verified 11/06/23 11:51 Review of Systems ROS Statement: Those systems with pertinent positive or pertinent negative responses have been documented in the HPI. ROS Other: All systems not noted in ROS Statement are negative. Past Medical History Past Medical History: Cancer Additional Past Medical History / Comment(s): plueral effusion, R breast cancer, liver and lower spine cancer. PANCREATITIS. History of Any Multi-Drug Resistant Organisms: None Reported Past Surgical History: Bariatric Surgery, Breast Surgery Additional Past Surgical History / Comment(s): double mastecomy, R ankle surg, carpel tunnel adrián Past Anesthesia/Blood Transfusion Reactions: No Reported Reaction Past Psychological History: Anxiety Smoking Status: Former smoker Past Alcohol Use History: None Reported Past Drug Use History: None Reported - Past Family History Mother Family Medical History: No Reported History General Exam Limitations: no limitations General appearance: alert, in no apparent distress Head exam: Present: atraumatic, normocephalic, normal inspection Respiratory exam: Present: normal lung sounds bilaterally. Absent: respiratory distress, wheezes, rales, rhonchi, stridor Cardiovascular Exam: Present: regular rate, normal rhythm, normal heart sounds. Absent: systolic murmur, diastolic murmur, rubs, gallop, clicks GI/Abdominal exam: Present: soft, distended, tenderness (Lower abdomen), normal bowel sounds Neurological exam: Present: alert, oriented X3, CN II-XII intact Psychiatric exam: Present: normal affect, normal mood Skin exam: Present: warm, dry, intact, normal color. Absent: rash Course Vital Signs 11/06/23 11/06/23 07:43 11:09 Temperature 98.1 F Pulse Rate 103 H 95 Respiratory 16 18 Rate Blood Pressure 112/76 109/70 O2 Sat by Pulse 96 98 Oximetry Medical Decision Making - Medical Decision Making This is a 43 year old female who presents to the emergency department for lower abdominal pain. Was pt. sent in by a medical professional or institution? @ -No Did you speak to anyone other than the patient for history? @ -No Did you review nursing and triage notes? @ -Yes, and I agree, it is accurate with regards to the patient's symptoms. Were old charts reviewed? @ -No Differential Diagnosis? @ -Differential Abdominal Pain Women: Appendicitis, Cholecystitis, diverticulosis, ischemic bowel, pancreatitis, hepatitis, UTI, gastroenteritis, AAA, incarcerated hernia, bowel obstruction, constipation, inflammatory bowel, hepatitis, peptic ulcer disease, splenic infarction, perforated viscus, vulvitis, ovarian torsion, PID, kidney stone, placenta abruption, this is not meant to be an all-inclusive list EKG interpreted by me (3pts min.)? @ -EKG interpreted by me demonstrating the following: Sinus rhythm. Ventricular rate 95 bpm, NH interval 148 ms, QRS duration 84 ms, QTc 416 ms. X-rays interpreted by me (1pt min.)? @ -Not obtained CT interpreted by me (1pt min.)? @ -CT scan of the abdomen and pelvis obtained. My interpretation identifies abdominal pelvic ascites. U/S interpreted by me (1pt. min.)? @ -Not obtained What testing was considered but not performed? (CT, X-rays, U/S, labs)? Why? @ -None What meds were considered but not given? Why? @ -None Did you discuss the management of the patient with other professionals? @ -No Did you reconcile home meds? @ -No Was smoking cessation discussed for >3mins.? @ -No Was critical care preformed (if so, how long)? @ -No Were there social determinants of health that impacted care today? How? (Homelessness, low income, unemployed, alcoholism, drug addiction, transportation, low edu. Level, literacy, decrease access to med. care, snf, rehab)? @ -No Was there de-escalation of care discussed even if they declined? (Discuss DNR or withdrawal of care, Hospice)? @ -No What co-morbidities impacted this encounter? (DM, HTN, Smoking, COPD, CAD, Cancer, CVA, Hep., AIDS, mental health diagnosis, sleep apnea, morbid obesity)? @ -Metastatic breast cancer Was patient admitted / discharged? @ -Discharged. Lab work fairly unremarkable. Liver function is stable and kristin ewhat improved when compared with prior. Urinalysis negative for signs of infection. CT scan of the abdomen and pelvis demonstrates interval development of right-sided moderate hydronephrosis of uncertain etiology. She also has stable mild fullness of the left renal collecting system. Obstructing calculus not visualized. There is stable metastatic disease to the liver. There is also increasing abdominal pelvic ascites as well as increasing right-sided pleural effusion and small left-sided pleural effusion. Findings reviewed with the patient. States that she had a CT scan done at [facility] last month demonstrating the right-sided hydronephrosis. I did offer admission for paracentesis to be done sooner and symptomatic management, especially given that she is already taking oral Dilaudid at home without relief in symptoms. Patient however declined and states that she would rather follow-up with [facility] as scheduled on Monday. Patient discharged home in stable condition with strict return parameters. Undiagnosed new problem with uncertain prognosis? @ -None Drug Therapy requiring intensive monitoring for toxicity (Heparin, Nitro, Ins ulin, Cardizem)? @ -None Were any procedures done? @ -None Diagnosis/symptom? @ -Abdominal pain, metastatic ascites Acute, or Chronic, or Acute on Chronic? @ -Acute Uncomplicated (without systemic symptoms) or Complicated (systemic symptoms)? @ -Complicated Side effects of treatment? @ -None Exacerbation, Progression, or Severe Exacerbation] @ -Not applicable Poses a threat to life or bodily function? @ -Yes the pain is impacting her ability to function. Return precautions reviewed in depth, the patient is instructed to return to the emergency department with any new, worsening, or concerning symptoms. Patient verbalized understanding. This case was discussed in detail with the attending ED physician, Dr. Najera. Presentation, findings, and treatment plan discussed in detail as well. - Lab Data Result diagrams: 11/06/23 08:07 11/06/23 08:07 Lab Results 11/06/23 11/06/23 11/06/23 Range/Units 08:07 08:07 08:07 WBC 4.4 (3.8-10.6) k/uL RBC 3.12 L (3.80-5.40) m/uL Hgb 10.9 L (11.4-16.0) gm/dL Hct 34.1 (34.0-46.0) % MCV 109.2 H (80.0-100.0) fL MCH 35.1 H (25.0-35.0) pg MCHC 32.1 (31.0-37.0) g/dL RDW 17.7 H (11.5-15.5) % Plt Count 106 L (150-450) k/uL MPV 10.0 Neutrophils % 80 % Lymphocytes % 13 % Monocytes % 5 % Eosinophils % 1 % Basophils % 0 % Neutrophils # 3.5 (1.3-7.7) k/uL Lymphocytes # 0.6 L (1.0-4.8) k/uL Monocytes # 0.2 (0-1.0) k/uL Eosinophils # 0.0 (0-0.7) k/uL Basophils # 0.0 (0-0.2) k/uL Differential Comment P Anisocytosis Slight Macrocytosis Marked A PT 11.8 (10.0-12.5) sec INR 1.1 (<1.2) APTT 28.1 (22.0-30.0) sec Sodium 135 L (137-145) mmol/L Potassium 3.5 (3.5-5.1) mmol/L Chloride 105 (98-107) mmol/L Carbon Dioxide 26 (22-30) mmol/L Anion Gap 4 mmol/L BUN 15 (7-17) mg/dL Creatinine 0.78 (0.52-1.04) mg/dL Est GFR (CKD-EPI)AfAm >90 (>60 ml/min/1.73 sqM) Est GFR (CKD-EPI)NonAf >90 (>60 ml/min/1.73 sqM) Glucose 91 (74-99) mg/dL Plasma Lactic Acid Sarmad (0.7-2.0) mmol/L Calcium 8.2 L (8.4-10.2) mg/dL Total Bilirubin 2.5 H (0.2-1.3) mg/dL AST 92 H (14-36) U/L ALT 27 (4-34) U/L Alkaline Phosphatase 440 H (38-126) U/L Total Protein 5.8 L (6.3-8.2) g/dL Albumin 2.5 L (3.5-5.0) g/dL Amylase 36 (30-110) U/L Lipase 73 (23-300) U/L Urine Color Urine Appearance (Clear) Urine pH (5.0-8.0) Ur Specific [place] (1.001-1.035) Urine Protein (Negative) Urine Glucose (UA) (Negative) Urine Ketones (Negative) Urine Blood (Negative) Urine Nitrite (Negative) Urine Bilirubin (Negative) Urine Urobilinogen (<2.0) mg/dL Ur Leukocyte Esterase (Negative) Urine RBC (0-5) /hpf Urine WBC (0-5) /hpf Ur Squamous Epith Cells (0-4) /hpf Urine Bacteria (None) /hpf Urine Mucus (None) /hpf 11/06/23 11/06/23 Range/Units 08:07 10:56 WBC (3.8-10.6) k/uL RBC (3.80-5.40) m/uL Hgb (11.4-16.0) gm/dL Hct (34.0-46.0) % MCV (80.0-100.0) fL MCH (25.0-35.0) pg MCHC (31.0-37.0) g/dL RDW (11.5-15.5) % Plt Count (150-450) k/uL MPV Neutrophils % % Lymphocytes % % Monocytes % % Eosinophils % % Basophils % % Neutrophils # (1.3-7.7) k/uL Lymphocytes # (1.0-4.8) k/uL Monocytes # (0-1.0) k/uL Eosinophils # (0-0.7) k/uL Basophils # (0-0.2) k/uL Differential Comment Anisocytosis Macrocytosis PT (10.0-12.5) sec INR (<1.2) APTT (22.0-30.0) sec Sodium (137-145) mmol/L Potassium (3.5-5.1) mmol/L Chloride (98-107) mmol/L Carbon Dioxide (22-30) mmol/L Anion Gap mmol/L BUN (7-17) mg/dL Creatinine (0.52-1.04) mg/dL Est GFR (CKD-EPI)AfAm (>60 ml/min/1.73 sqM) Est GFR (CKD-EPI)NonAf (>60 ml/min/1.73 sqM) Glucose (74-99) mg/dL Plasma Lactic Acid Sarmad 1.1 (0.7-2.0) mmol/L Calcium (8.4-10.2) mg/dL Total Bilirubin (0.2-1.3) mg/dL AST (14-36) U/L ALT (4-34) U/L Alkaline Phosphatase (38-126) U/L Total Protein (6.3-8.2) g/dL Albumin (3.5-5.0) g/dL Amylase (30-110) U/L Lipase (23-300) U/L Urine Color [place] Urine Appearance Cloudy H (Clear) Urine pH 5.5 (5.0-8.0) Ur Specific [place] 1.029 (1.001-1.035) Urine Protein 1+ H (Negative) Urine Glucose (UA) Negative (Negative) Urine Ketones Trace H (Negative) Urine Blood Negative (Negative) Urine Nitrite Negative (Negative) Urine Bilirubin Negative (Negative) Urine Urobilinogen 8.0 (<2.0) mg/dL Ur Leukocyte Esterase Negative (Negative) Urine RBC 2 (0-5) /hpf Urine WBC 15 H (0-5) /hpf Ur Squamous Epith Cells 6 H (0-4) /hpf Urine Bacteria Rare H (None) /hpf Urine Mucus Rare H (None) /hpf - Radiology Data Radiology results: report reviewed, image reviewed Disposition Clinical Impression: Abdominal pain, Ascites of liver Disposition: HOME SELF-CARE Instructions (If sedation given, give patient instructions): Abdominal Pain (ED) Additional Instructions: Return to the emergency department with any new, worsening, or concerning symptoms. Follow up with your primary care provider in 1-2 days. Is patient prescribed a controlled substance at d/c from ED?: No Referrals: None,Stated [Primary Care Provider] - 1-2 days Time of Disposition: 14:49
[2023-11-06 08:38] VITALS: TEMP 98.1
[2023-11-06] MEDS: KETOROLAC 15 MG/ML 1 ML VIAL IVP STA (08:39)
[2023-11-06] MEDS: HYDROmorphone 1 MG/ML 1 ML SYRINGE IVP STA ×2 (08:40→11:10)
[2023-11-06 09:07] LABS: Anisocytosis Slight; Basophils % (A) 0 %; Eosinophils % (A) 1 %; HCT 34.1 % (34.0-46.0); HGB 10.9 gm/dL (11.4-16.0); Lymphocytes # (A) 0.6 k/uL (1.0-4.8); Lymphocytes % (A) 13 %; MCH 35.1 pg (25.0-35.0); MCHC 32.1 g/dL (31.0-37.0); MCV 109.2 fL (80.0-100.0); Macrocytosis Marked; Monocytes # (A) 0.2 k/uL (0-1.0); Monocytes % (A) 5 %; Neutrophils # (A) 3.5 k/uL (1.3-7.7); Neutrophils % (A) 80 %; Platelet Count 106 k/uL (150-450); RBC 3.12 m/uL (3.80-5.40); RDW 17.7 % (11.5-15.5); WBC 4.4 k/uL (3.8-10.6)
[2023-11-06 09:22] LABS: INR 1.1 (<1.2); Partial Thromboplastin Time 28.1 sec (22.0-30.0); Prothrombin Time 11.8 sec (10.0-12.5)
[2023-11-06 09:27] LABS: ALT 27 U/L (4-34); AST 92 U/L (14-36); African American GFR (CKD) >90 (>60 ml/min/1.73 sqM); Alkaline Phosphatase 440 U/L (38-126); Amylase 36 U/L (30-110); Anion Gap 4 mmol/L; Blood Urea Nitrogen 15 mg/dL (7-17); Calcium 8.2 mg/dL (8.4-10.2); Carbon Dioxide 26 mmol/L (22-30); Chloride 105 mmol/L (98-107); Glucose 91 mg/dL (74-99); Lipase 73 U/L (23-300); Non-African American GFR(CKD) >90 (>60 ml/min/1.73 sqM); Potassium 3.5 mmol/L (3.5-5.1); Sodium 135 mmol/L (137-145); Total Bilirubin 2.5 mg/dL (0.2-1.3); Total Protein 5.8 g/dL (6.3-8.2)
[2023-11-06 09:50] LABS: Albumin 2.5 g/dL (3.5-5.0)
[2023-11-06 11:35] LABS: Appearance,Urine Cloudy (Clear); Bacteria,Urine Rare /hpf; Bilirubin,Urine Negative (Negative); Blood,Urine Negative (Negative); Color,Urine Orange; Glucose,Urine (UA) Negative (Negative); Ketones,Urine Trace (Negative); Leukocyte Esterase,Urine Negative (Negative); Mucus,Urine Rare /hpf; Nitrite,Urine Negative (Negative); PH, Urine 5.5 (5.0-8.0); Protein,Urine 1+ (Negative); RBC,Urine 2 /hpf (0-5); Specific Gravity,Urine 1.029 (1.001-1.035); Squamous Epithelial Cell,Urine 6 /hpf (0-4); WBC,Urine 15 /hpf (0-5)
[2023-11-06 11:55] VITALS: BP 109/70; PULSE 95; RESP 18
[2023-11-06] MEDS: HYDROmorphone 0.5 MG/0.5 ML SYRINGE IVP STA (12:39)
--- NOTE | 2023-11-06 12:42 | CT ---
EXAMINATION TYPE: CT abdomen pelvis w con DATE OF EXAM: 11/06/2023 COMPARISON: 08/28/2023 HISTORY: Lower abdominal pain. History of breast carcinoma CT DLP: 740.9 mGycm CONTRAST: CT scan of the abdomen and pelvis is performed without Oral Contrast and with IV Contrast, patient in jected with 100ml mL of Isovue 300. FINDINGS: LUNG BASES-: Increasing right-sided pleural effusion which is moderate in size. Small left-sided pleu ral effusion is new in the interval. LIVER/GB: Innumerable hepatic metastases are seen without obvious change from prior study. There is a lobulated contour of the hepatic periphery compatible with underlying cirrhotic liver disease. There is atrophy of the left hepatic lobe. PANCREAS: No inflammation. No distinct mass. SPLEEN: No splenic enlargement. No lesion seen. ADRENALS: No nodule. No thickening. KIDNEYS/BLADDER: Moderate right-sided hydroureteronephrosis has occurred in the interval. There appea rs to be ureteral transition within the proximal right ureter without obstructing calculus. Mild full ness left renal pelvis is redemonstrated and unchanged from prior study. 2 mm nonobstructing calculus lower pole left kidney. No distinct renal mass. Urinary bladder grossly unremarkable. BOWEL: Normal appendix. Normal bowel caliber. No inflammation. GENITAL ORGANS: Ovaries measure approximately 3 cm bilaterally. Uterus is grossly unremarkable. LYMPH NODES: No greater than 1cm abdominal or pelvic lymph nodes are appreciated. AORTA: No significant abnormality. OSSEOUS STRUCTURES: Sclerotic bony metastases are redemonstrated essentially unchanged from prior arthur dy. OTHER: Moderate increasing abdominal pelvic ascites. IMPRESSION: 1. Interval development of right-sided moderate hydronephrosis of uncertain etiology. As noted an obs tructing calculus is not visualized. 2. Stable mild fullness left renal collecting system. 3. Stable metastatic disease to the liver. 4. Increasing abdominal pelvic ascites as well as increasing right-sided pleural effusion and small l eft-sided pleural effusion.
== END 2023-11-06 15:23 | disposition home or self-care (01) ==
LOC: EC 07:35
DX: N13.30 Unspecified hydronephrosis (principal); R18.8 Other ascites; C79.81 Secondary malignant neoplasm of breast; Z87.891 Personal history of nicotine dependence
CPT/HCPCS: 99285; 96374; 96375; 96376 ×2; 36415; 93005; 80053; 82150; 83605; 83690; 85025; 85610; 85730; 81001; 74177; J1170 ×2; J1642; Q9967

== ENCOUNTER 2023-11-25 11:47 | Observation (INO) | payer MEDICARE ==
--- NOTE | 2023-11-25 12:21 | ED ---
General Adult HPI - General Chief complaint: Recheck/Abnormal Lab/Rx Stated complaint: infusion Time Seen by Provider: 11/25/23 12:01 Source: patient, RN notes reviewed Mode of arrival: wheelchair Limitations: no limitations - History of Present Illness Initial comments: Patient is a pleasant 43-year-old female present to the emergency department needing transfusion. Patient is set to have paracentesis done Monday. Patient has been having some fatigue and exertional dyspnea. Patient had a blood level and platelets checked by her oncologist and was told she needed transfusion. Patient is under the understanding that irradiated blood is waiting for her. Patient denies any bleeding. Patient does have history of metastatic breast cancer and is on chemotherapy. - Related Data Home Medications Medication Instructions Recorded Confirmed ALPRAZolam [Xanax] 1 mg PO TID PRN 02/08/19 11/25/23 Hydrocodone/Acetaminophen [[place] 1 tab PO Q4H PRN 02/08/19 11/25/23 7.5-325] Esomeprazole Magnesium [NexIUM] 40 mg PO BID 11/06/23 11/25/23 Lidocaine-Prilocaine Cream [Emla 1 applic TOPICAL DIRECTED PRN 11/06/23 11/25/23 Cream 2.5%/2.5%] Tamoxifen Citrate [Nolvadex] 20 mg PO DAILY 11/06/23 11/25/23 polyethylene glycoL 3350 [Miralax] 17 gm PO DAILY PRN 11/06/23 11/25/23 Fluconazole [Diflucan] 100 mg PO DAILY 11/25/23 11/25/23 HYDROmorphone [Dilaudid] 4 mg PO Q3H PRN 11/25/23 11/25/23 Sucralfate [Carafate] 1 gm PO TID PRN 11/25/23 11/25/23 Allergies Allergy/AdvReac Type Severity Reaction Status Date / Time No Known Allergies Allergy Verified 11/25/23 14:01 Review of Systems ROS Statement: Those systems with pertinent positive or pertinent negative responses have been documented in the HPI. ROS Other: All systems not noted in ROS Statement are negative. Constitutional: Denies: fever Eyes: Denies: eye pain ENT: Denies: ear pain Respiratory: Denies: cough Cardiovascular: Reports: dyspnea on exertion. Denies: chest pain Endocrine: Reports: fatigue Past Medical History Past Medical History: Cancer Additional Past Medical History / Comment(s): plueral effusion, R breast cancer, liver and lower spine cancer. PANCREATITIS. History of Any Multi-Drug Resistant Organisms: None Reported Past Surgical History: Bariatric Surgery, Breast Surgery Additional Past Surgical History / Comment(s): double mastecomy, R ankle surg, carpel tunnel adrián Past Anesthesia/Blood Transfusion Reactions: No Reported Reaction Past Psychological History: Anxiety Smoking Status: Never smoker Past Alcohol Use History: None Reported Past Drug Use History: None Reported - Past Family History Mother Family Medical History: No Reported History General Exam Limitations: no limitations General appearance: alert, in no apparent distress Head exam: Present: normocephalic Eye exam: Present: normal appearance Neck exam: Present: normal inspection Respiratory exam: Present: normal lung sounds bilaterally Cardiovascular Exam: Present: regular rate, normal rhythm GI/Abdominal exam: Present: soft, other (Mild ascites the patient states is chronic and why she is having paracentesis). Absent: tenderness Extremities exam: Present: normal inspection Neurological exam: Present: alert Psychiatric exam: Present: normal affect, normal mood Skin exam: Present: normal color Course Vital Signs 11/25/23 11:54 Temperature 98.4 F Pulse Rate 84 Respiratory 18 Rate Blood Pressure 95/63 O2 Sat by Pulse 100 Oximetry Medical Decision Making - Medical Decision Making Was pt. sent in by a medical professional or institution (MAKSIM Parra, RAIL GR[facility]ER, urgent care, hospital, or long-term...) When possible be specific @ -Patient was sent in by her oncologist Did you speak to anyone other than the patient for history (EMS, parent, family, police, friend...)? What history was obtained from this source @ -No Did you review nursing and triage notes (agree or disagree)? Why? @ -I reviewed and agree with nursing and triage notes Were old charts reviewed (outside hosp., previous admission, EMS record, old EKG , old radiological studies, urgent care reports/EKG's, long-term records)? Report findings @ -No old charts were reviewed Differential Diagnosis (chest pain, altered mental status, abdominal pain women, abdominal pain men, vaginal bleeding, weakness, fever, dyspnea, syncope, headache, dizziness, GI bleed, back pain, seizure, CVA, palpatations, mental health, musculoskeletal)? @ -Differential Weakness: Hypoglycemia, shock, sepsis, hyponatremia, anemia, infection, NH, ETOH, adverse medicine reaction, overdose, stroke, this is not meant to be an all-inclusive list. EKG interpreted by me (3pts min.). @ -As above X-rays interpreted by me (1pt min.). @ -None done CT interpreted by me (1pt min.). @ -None done U/S interpreted by me (1pt. min.). @ -None done What testing was considered but not performed or refused? (CT, X-rays, U/S, labs)? Why? @ -None What meds were considered but not given or refused? Why? @ -None Did you discuss the management of the patient with other professionals (professionals i.e. DrYulisa, PA, RAIL GRINDER, lab, RT, psych nurse, social problems specialist, military lawyer, teacher, disciplinary hearing officer, child welfare caseworker)? Give summary @ -Case discussed twice with Dr. Bagley who does recommend 2 units of irradiated blood. No platelets at this time secondary to procedure being on Monday. Case also discussed with Dr. Lemons who will admit covering DrYulisa gl Was smoking cessation discussed for >3mins.? @ -No Was critical care preformed (if so, how long)? @ -31 minutes critical care time Were there social determinants of health that impacted care today? How? (Homelessness, low income, unemployed, alcoholism, drug addiction, transportation, low edu. Level, literacy, decrease access to med. care, usp, rehab)? @ -No Was there de-escalation of care discussed even if they declined (Discuss DNR or withdrawal of care, Hospice)? DNR status @ -No What co-morbidities impacted this encounter? (DM, HTN, Smoking, COPD, CAD, Cancer, CVA, ARF, Chemo, Hep., AIDS, mental health diagnosis, sleep apnea, morbid obesity)? @ -Metastatic breast cancer Was patient admitted / discharged? Hospital course, mention meds given and route, prescriptions, significant lab abnormalities, going to OR and other p ertinent info. @ -Patient updated. Patient be admitted with blood transfusion. Admission orders written. Undiagnosed new problem with uncertain prognosis? @ -No Drug Therapy requiring intensive monitoring for toxicity (Heparin, Nitro, Insulin, Cardizem)? @ -Blood transfusion Were any procedures done? @ -No Diagnosis/symptom? @ -Anemia, thrombocytopenia Acute, or Chronic, or Acute on Chronic? @ -Acute, acute Uncomplicated (without systemic symptoms) or Complicated (systemic symptoms)? @ -Default Side effects of treatment? @ -No Exacerbation, Progression, or Severe Exacerbation? @ -No Poses a threat to life or bodily function? How? (Chest pain, [place], NH, pneumonia, PE, COPD, DKA, ARF, appy, cholecystitis, CVA, Diverticulitis, Homicidal, Suicidal, threat to staff... and all critical care pts) @ -Threat for organ dysfunction through hypoperfusion - Lab Data Result diagrams: 11/25/23 13:48 11/25/23 13:48 Lab Results 11/25/23 11/25/23 11/25/23 Range/Units 13:48 13:48 13:48 WBC 4.7 (3.8-10.6) k/uL RBC 1.66 L (3.80-5.40) m/uL Hgb 5.9 L* D (11.4-16.0) gm/dL Hct 17.5 L* (34.0-46.0) % MCV 105.4 H (80.0-100.0) fL MCH 35.3 H (25.0-35.0) pg MCHC 33.5 (31.0-37.0) g/dL RDW 17.5 H (11.5-15.5) % Plt Count 20 L D (150-450) k/uL MPV 12.0 Neutrophils % 64 % Lymphocytes % 28 % Monocytes % 5 % Eosinophils % 0 % Basophils % 0 % Neutrophils # 3.0 (1.3-7.7) k/uL Lymphocytes # 1.3 (1.0-4.8) k/uL Monocytes # 0.2 (0-1.0) k/uL Eosinophils # 0.0 (0-0.7) k/uL Basophils # 0.0 (0-0.2) k/uL Manual Slide Review Performed Anisocytosis Slight Macrocytosis Moderate Sodium 140 (137-145) mmol/L Potassium 3.4 L (3.5-5.1) mmol/L Chloride 110 H (98-107) mmol/L Carbon Dioxide 26 (22-30) mmol/L Anion Gap 4 mmol/L BUN 10 (7-17) mg/dL Creatinine 0.57 (0.52-1.04) mg/dL Est GFR (CKD-EPI)AfAm >90 (>60 ml/min/1.73 sqM) Est GFR (CKD-EPI)NonAf >90 (>60 ml/min/1.73 sqM) Glucose 90 (74-99) mg/dL Calcium 8.0 L (8.4-10.2) mg/dL Blood Type A Positive Blood Type Recheck A Pos Bld Type Recheck Status No Antibody Screen NEGATIVE Spec Expiration Date 11/28/20232347 Disposition Clinical Impression: Breast carcinoma, Anemia, Thrombocytopenia Disposition: ADMITTED IP TO THIS HOSP Is patient prescribed a controlled substance at d/c from ED?: No Referrals: Jeronimo Mccormick DO [Primary Care Provider] - 1-2 days Time of Disposition: 15:12
[2023-11-25 14:02] LABS: Anisocytosis Slight; Basophils % (A) 0 %; Eosinophils % (A) 0 %; Lymphocytes # (A) 1.3 k/uL (1.0-4.8); Lymphocytes % (A) 28 %; MCH 35.3 pg (25.0-35.0); MCHC 33.5 g/dL (31.0-37.0); MCV 105.4 fL (80.0-100.0); Macrocytosis Moderate; Monocytes # (A) 0.2 k/uL (0-1.0); Monocytes % (A) 5 %; Neutrophils % (A) 64 %; RBC 1.66 m/uL (3.80-5.40); RDW 17.5 % (11.5-15.5); WBC 4.7 k/uL (3.8-10.6)
[2023-11-25 14:06] LABS: HGB 5.9 gm/dL (11.4-16.0)
[2023-11-25 14:07] LABS: HCT 17.5 % (34.0-46.0)
[2023-11-25 14:11] LABS: African American GFR (CKD) >90 (>60 ml/min/1.73 sqM); Anion Gap 4 mmol/L; Blood Urea Nitrogen 10 mg/dL (7-17); Carbon Dioxide 26 mmol/L (22-30); Chloride 110 mmol/L (98-107); Glucose 90 mg/dL (74-99); Non-African American GFR(CKD) >90 (>60 ml/min/1.73 sqM); Potassium 3.4 mmol/L (3.5-5.1); Sodium 140 mmol/L (137-145)
[2023-11-25 14:16] LABS: Platelet Count 20 k/uL (150-450)
[2023-11-25] MEDS ORDERED: HYDROcodone/APAP 7.5-325MG 1 EACH TAB PO PRN (14:58)
[2023-11-25] MEDS ORDERED: LIDOCAINE-PRILOCAINE 2.5-2.5% CREAM 5 GM TUBE TOPICAL PRN (14:58)
[2023-11-25] MEDS ORDERED: SUCRALFATE 1 GM TAB PO PRN (14:58)
--- NOTE | 2023-11-25 15:06 | P.HPIM ---
History of Present Illness 43-year-old female is admitted for blood transfusion although patient has multiple antibodies and will need a radiated matched blood because of which patient is being admitted patient will need 2 units of blood transfusion. Patient also has severe thrombocytopenia with a platelet count of 20,000. Patient is supposed to get paracentesis on Monday patient gets scheduled paracentesis every week for malignant ascites. Patient does have ascites. Patient does have history of breast cancer supposed to get chemo on next Monday. Patient denies any symptoms of anemia. Patient denies any blood in the stools dark stools. REVIEW OF SYSTEMS: CONSTITUTIONAL: No fever, no malaise, no fatigue. HEENT: No recent visual problems or hearing problems. Denied any sore throat. CARDIOVASCULAR: No chest pain, orthopnea, PND, no palpitations, no syncope. PULMONARY: No shortness of breath, no cough, no hemoptysis. GASTROINTESTINAL: No diarrhea, no nausea, no vomiting, no abdominal pain. NEUROLOGICAL: No headaches, no weakness, no numbness. HEMATOLOGICAL: Denies any bleeding or petechiae. GENITOURINARY: Denies any burning micturition, frequency, or urgency. MUSCULOSKELETAL/RHEUMATOLOGICAL: Denies any joint pain, swelling, or any muscle pain. ENDOCRINE: Denies any polyuria or polydipsia. The rest of the 14-point review of systems is negative. PHYSICAL EXAMINATION: GENERAL: The patient is alert and oriented x3, not in any acute distress. Well developed, well nourished. HEENT: Pupils are round and equally reacting to light. EOMI. No scleral icterus. Patient does have conjunctival pallor. Normocephalic, atraumatic. No pharyngeal erythema. No thyromegaly. CARDIOVASCULAR: S1 and S2 present. No murmurs, rubs, or gallops. PULMONARY: Chest is clear to auscultation, no wheezing or crackles. ABDOMEN: Soft, nontender, nondistended, normoactive bowel sounds. No palpable organomegaly. MUSCULOSKELETAL: No joint swelling or deformity. EXTREMITIES: No cyanosis, clubbing, or pedal edema. NEUROLOGICAL: Gross neurological examination did not reveal any focal deficits. SKIN: No rashes. Assessment and plan -Asymptomatic severe anemia: Anemia secondary to breast cancer and chemotherapy will order hip radiated blood cells which may take some time because of antibodies. -Severe thrombocytopenia: Secondary to chemotherapy patient probably will require platelet transfusion just before or during the procedure of paracentesis. -Malignant ascites -Breast cancer on chemotherapy patient is on tamoxifen. Patient is on prophylactic antibiotics. DVT prophylaxis: Ambulation. No pharmacological anticoagulation because of severe thrombocytopenia. Past Medical History Past Medical History: Cancer Additional Past Medical History / Comment(s): plueral effusion, R breast cancer, liver and lower spine cancer. PANCREATITIS. History of Any Multi-Drug Resistant Organisms: None Reported Past Surgical History: Bariatric Surgery, Breast Surgery Additional Past Surgical History / Comment(s): double mastecomy, R ankle surg, carpel tunnel adrián Past Anesthesia/Blood Transfusion Reactions: No Reported Reaction Past Psychological History: Anxiety Smoking Status: Never smoker Past Alcohol Use History: None Reported Past Drug Use History: None Reported - Past Family History Mother Family Medical History: No Reported History Medications and Allergies Home Medications Medication Instructions Recorded Confirmed Type ALPRAZolam [Xanax] 1 mg PO TID PRN 02/08/19 11/25/23 History Hydrocodone/Acetaminophen [[place] 1 tab PO Q4H PRN 02/08/19 11/25/23 History 7.5-325] Esomeprazole Magnesium [NexIUM] 40 mg PO BID 11/06/23 11/25/23 History Lidocaine-Prilocaine Cream [Emla 1 applic TOPICAL DIRECTED PRN 11/06/2307/19 History Cream 2.5%/2.5%] Tamoxifen Citrate [Nolvadex] 20 mg PO DAILY 11/06/23 11/25/23 History polyethylene glycoL 3350 [Miralax] 17 gm PO DAILY PRN 11/06/23 11/25/23 History Fluconazole [Diflucan] 100 mg PO DAILY 11/25/23 11/25/23 History HYDROmorphone [Dilaudid] 4 mg PO Q3H PRN 11/25/23 11/25/23 History Sucralfate [Carafate] 1 gm PO TID PRN 11/25/23 11/25/23 History Allergies Allergy/AdvReac Type Severity Reaction Status Date / Time No Known Allergies Allergy Verified 11/25/23 14:01 Physical Exam Vitals: Vital Signs Temp Pulse Resp BP Pulse Ox 11/25/23 11:54 98.4 F 84 18 95/63 100 Intake and Output 11/25/23 11/25/2324 06:59 14:59 22:59 Other: Weight 56.699 kg Results CBC & Chem 7: 11/25/23 13:48 11/25/23 13:48 Labs: Abnormal Lab Results - Last 24 Hours (Table) 11/25/23 11/25/23 Range/Units 13:48 13:48 RBC 1.66 L (3.80-5.40) m/uL Hgb 5.9 L* D (11.4-16.0) gm/dL Hct 17.5 L* (34.0-46.0) % MCV 105.4 H (80.0-100.0) fL MCH 35.3 H (25.0-35.0) pg RDW 17.5 H (11.5-15.5) % Plt Count 20 L D (150-450) k/uL Potassium 3.4 L (3.5-5.1) mmol/L Chloride 110 H (98-107) mmol/L Calcium 8.0 L (8.4-10.2) mg/dL
[2023-11-25] MEDS ORDERED: NALOXONE 0.4 MG/ML 1 ML VIAL IV PRN (15:13)
[2023-11-25] MEDS ORDERED: ACETAMINOPHEN TAB 325 MG TAB PO PRN (15:13)
[2023-11-25] MEDS: PANTOPRAZOLE 40 MG TABLET PO SCH (17:50)
[2023-11-25] MEDS: POTASSIUM CHLORIDE ER 20 MEQ TAB.ER PO STA (17:50)
[2023-11-25 22:19] VITALS: RESP 16
[2023-11-26] MEDS: HYDROmorphone 2 MG TAB PO PRN (00:59)
[2023-11-26] MEDS: ALPRAZolam 1 MG TAB PO PRN (03:01)
[2023-11-26 06:22] LABS: Anisocytosis Slight; Basophils % (A) 0 %; Eosinophils % (A) 0 %; HCT 26.1 % (34.0-46.0); Lymphocytes # (A) 1.4 k/uL (1.0-4.8); Lymphocytes % (A) 29 %; MCH 33.2 pg (25.0-35.0); MCHC 31.7 g/dL (31.0-37.0); MCV 104.9 fL (80.0-100.0); Macrocytosis Marked; Mean Platelet Volume 11.7; Monocytes # (A) 0.3 k/uL (0-1.0); Monocytes % (A) 6 %; Neutrophils # (A) 2.9 k/uL (1.3-7.7); Neutrophils % (A) 60 %; RBC 2.49 m/uL (3.80-5.40); RDW 18.3 % (11.5-15.5); WBC 4.9 k/uL (3.8-10.6)
[2023-11-26 06:25] LABS: HGB 8.3 gm/dL (11.4-16.0); Platelet Count 23 k/uL (150-450)
[2023-11-26 06:59] VITALS: TEMP 98.3
[2023-11-26] MEDS: polyethylene glycoL 3350 17 GM POWD.PACK PO PRN (09:00)
[2023-11-26] MEDS: FLUCONAZOLE 100 MG TAB PO SCH (09:01)
[2023-11-26] MEDS: TAMOXIFEN 10 MG TAB PO SCH (10:01)
[2023-11-26 12:35] VITALS: BP 93/57; PULSE 76
--- NOTE | 2023-11-26 15:39 | P.DS ---
Providers Date of admission: 11/25/23 15:14 Attending physician: Fuad Lemons Consults: 11/25/23 15:13 Consult Physician Routine Consulting Provider: Tomasz Galicia Consult Reason/Comments: Anemia, thrombocytopenia Do you want consulting provider notified?: Already Contacted Primary care physician: Jeronimo Mccormick [facility] Course: left AMA Plan - Discharge Summary New Discharge Prescriptions: No Action Hydrocodone/Acetaminophen [[place] 7.5-325] 1 tab PO Q4H PRN PRN Reason: Pain ALPRAZolam [Xanax] 1 mg PO TID PRN PRN Reason: Anxiety Tamoxifen Citrate [Nolvadex] 20 mg PO DAILY Esomeprazole Magnesium [NexIUM] 40 mg PO BID polyethylene glycoL 3350 [Miralax] 17 gm PO DAILY PRN PRN Reason: Constipation Lidocaine-Prilocaine Cream [Emla Cream 2.5%/2.5%] 1 applic TOPICAL DIRECTED PRN PRN Reason: PORT ACCESS Sucralfate [Carafate] 1 gm PO TID PRN PRN Reason: Gi Upset Fluconazole [Diflucan] 100 mg PO DAILY HYDROmorphone [Dilaudid] 4 mg PO Q3H PRN PRN Reason: Pain Discharge Medication List ALPRAZolam [Xanax] 1 mg PO TID PRN 02/08/19 [History] Hydrocodone/Acetaminophen [[place] 7.5-325] 1 tab PO Q4H PRN 02/08/19 [History] Esomeprazole Magnesium [NexIUM] 40 mg PO BID 11/06/23 [History] Lidocaine-Prilocaine Cream [Emla Cream 2.5%/2.5%] 1 applic TOPICAL DIRECTED PRN 11/06/23 [History] Tamoxifen Citrate [Nolvadex] 20 mg PO DAILY 11/06/23 [History] polyethylene glycoL 3350 [Miralax] 17 gm PO DAILY PRN 11/06/23 [History] Fluconazole [Diflucan] 100 mg PO DAILY 11/25/23 [History] HYDROmorphone [Dilaudid] 4 mg PO Q3H PRN 11/25/23 [History] Sucralfate [Carafate] 1 gm PO TID PRN 11/25/23 [History] Follow up Appointment(s)/Referral(s): Jeronimo Mccormick DO [Primary Care Provider] - 1-2 days Discharge Disposition: LEFT AGAINST MEDICAL ADVICE
== END 2023-11-26 12:04 | disposition left against medical advice (07) ==
LOC: EC 11:47 → 3SCARD 15:14
PROVIDERS: ADMIT Internal Medicine; ATTEND Internal Medicine
DX: D64.81 Anemia due to antineoplastic chemotherapy (principal); D69.59 Other secondary thrombocytopenia; T45.1X5A Adverse effect of antineoplastic and immunosuppressive drugs, initial encounter; C50.911 Malignant neoplasm of unspecified site of right female breast; C78.7 Secondary malignant neoplasm of liver and intrahepatic bile duct; C79.51 Secondary malignant neoplasm of bone; R18.0 Malignant ascites; D63.0 Anemia in neoplastic disease; Z79.810 Long term (current) use of selective estrogen receptor modulators (SERMs); Z79.51 Long term (current) use of inhaled steroids; Z79.899 Other long term (current) drug therapy; Z53.29 Procedure and treatment not carried out because of patient's decision for other reasons
CPT/HCPCS: 36430; 99284; 36415; 86900; 86901; 80048; 85025 ×2; 86850; 86920; G0378 ×2; P9016; S0187